=== PATIENT | male | born 1950 | race Caucasian/White ===

== ENCOUNTER 2020-11-09 10:26 | Inpatient (IN) | payer MEDICARE, SELFPAY ==
[2020-11-09] VITALS (32 sets, daily range): BP systolic 139–178; BP diastolic 57–87; PULSE 62–71; RESP 7–24; TEMP 36.4–36.7; O2SAT 85–100
--- NOTE | ~2020-11-09 | US_ITS ---
EXAMINATION: US renal BI DATE: 11/09/2020 17:28 INDICATION: Acute renal failure. TECHNIQUE: Multiple ultrasound grayscale images of the kidneys were obtained. COMPARISON: None. FINDINGS: The right kidney measures 11.2 x 6.7 x 5.6 cm. The left kidney is not visualized The right kidney dem onstrates normal parenchymal echogenicity. There is no right-sided hydronephrosis. The bladder is non visualized. IMPRESSION: 1. Normal right kidney. Left kidney and bladder are not visualized, likely secondary to obesity and e katty. Reviewed, dictated and finalized at location A. IMPRESSION: 1. Normal right kidney. Left kidney and bladder are not visualized, likely seco ndary to obesity and edema.
--- NOTE | ~2020-11-09 | NM_ITS ---
EXAMINATION: NM lung vent and perfusion DATE: 11/09/2020 15:39 INDICATION: Hypoxia. TECHNIQUE: 5.5 mCi Tc-99m MAA was administered intravenously for perfusion images. Scintigraphic gilma ges of the chest were obtained. COMPARISON: Chest 2 views 11/09/2020 FINDINGS: Perfusion images show large defects in right lower lobe and a moderate-sized defect in left lower lob e with matched radiographic abnormalities. IMPRESSION: 1. Nondiagnostic (intermediate probability for pulmonary embolism). Reviewed, dictated and finalized at location A.
--- NOTE | ~2020-11-09 | US_ITS ---
EXAMINATION: US venous doppler [facility] DATE: 11/09/2020 17:28 INDICATION: Lower limb edema. TECHNIQUE: Grayscale ultrasound images without and with compression and Doppler ultrasound images of the bilateral lower extremity veins were obtained. COMPARISON: None. FINDINGS: The visualized portions of right common femoral vein, profunda (deep) femoral vein, femoral vein, pop liteal vein, posterior tibial veins, and greater saphenous vein outflow are patent. The visualized portions of left common femoral vein, profunda femoral vein, femoral vein, popliteal v ein, peroneal veins, posterior tibial veins, and greater saphenous vein outflow are patent. IMPRESSION: 1. No deep venous thrombosis. Reviewed, dictated and finalized at location A.
--- NOTE | ~2020-11-09 | XR_ITS ---
XR chest 2V 11/09/2020 11:15 Indication: Shortness of breath Procedure: AP and lateral views of the chest Comparison: No prior studies for comparison. Findings: Patchy bilateral airspace disease. Small right pleural effusion. Cardiomegaly. No pneumotho rax. Impression: 1: Patchy bibasilar airspace disease, most likely pneumonia. 2: Small right pleural effusion. 3: Cardiomegaly. Reviewed, dictated and finalized at location B. Impression: 1: Patchy bibasilar airspace disease, most likely pneumonia. 2: Small right pleural effusion. 3: Cardiomegaly.
--- NOTE | 2020-11-09 10:37 | ECG_ITS ---
Measurements Intervals [place] Rate: 68 P: 107 MI: 200 QRS: 106 QRSD: 130 T: 85 QT: 419 QTc: 448 Interpretive Statements SINUS RHYTHM RIGHT AXIS DEVIATION INCOMPLETE RIGHT BUNDLE BRANCH BLOCK BORDERLINE T WAVE ABNORMALITY- ANT/HIGH LAT LEADS BASELINE ARTIFACT- V4 BORDERLINE ECG Electronically Signed On 11-09-2020 11:39:47 CDT by Rubén Pitts D.O.
--- NOTE | 2020-11-09 10:41 | ED.SOB ---
HPI - SOB/Dyspnea General Chief Complaint: Shortness of Breath/Dyspnea Stated Complaint: abd/LE swelling Source: patient and RN notes reviewed Mode of arrival: EMS Limitations: no limitations History of Present Illness HPI Narrative: Patient is 70 years old white male referred to the emergency room from his family physician office because of gradual shortness of breath on exertion and swelling of the legs and the scrotum over the last 7 days. Patient denies any fever, chills, nausea, vomiting, chest pain, back pain or abdominal pain. Patient reports that he been retaining fluid lately. History of hypertension, diabetes and hyperlipidemia. Patient does not smoke or drink. Related Data Home Medications Medication Instructions Recorded Confirmed exenatide microspheres [Bydureon] mg SUBCUT 11/09/20 glimepiride mg 11/09/20 levothyroxine 11/09/20 losartan 11/09/20 metformin mg PO 11/09/20 Allergies Allergy/AdvReac Type Severity Reaction Status Date / Time No Known Allergies Allergy Verified 11/09/20 10:27 Review of Systems Review of Systems: Narrative: CONSTITUTIONAL: Denies fever, chills, or sweats. EYES: Denies visual changes, redness, or discharge. ENT: Denies rhinorrhea, congestion, sore throat, or otalgia. CARDIOVASCULAR: Denies chest pain, palpitations, or edema. RESPIRATORY: Denies cough or dyspnea. GASTROINTESTINAL: Denies abdominal pain, nausea, vomiting, or diarrhea. GENITOURINARY: Denies dysuria or hematuria. SKIN: Denies rash or itching. MUSCULOSKELETAL: Denies back pain, joint pain, or myalgia. NEUROLOGIC: Denies headache, numbness, or weakness. PSYCHIATRIC: Denies anxiety or depression. Exam Narrative: Exam Narrative: General appearance: Well-developed, well-nourished Skin: 2+ edema bilaterally up to the scrotum and lower abdomen Head: Normocephalic, nontraumatic Eyes: Clear conjunctiva ENT: Oropharynx normal, ears normal, nose normal Neck: Supple, nontender Chest and respiratory: Airway patent, no respiratory distress, no accessory muscle use Heart: Regular rate/rhythm Abdomen: Soft, nontender, no organomegaly, quiet bowel sounds Vascular: Normal peripheral pulses, normal capillary refill. Musculoskeletal: Normal range of motion, nontender back Neurologic: Alert and oriented ?3, [employer] is normal as tested, no gross motor deficit Course Course Emergency Course: Stable Vital Signs Vital signs: Vital Signs Pulse Rate 71 11/09/20 10:27 Respiratory Rate 17 11/09/20 10:27 Blood Pressure 168/67 H 11/09/20 10:27 Pulse Oximetry 85 L 11/09/20 10:27 Pulse Rate 69 11/09/20 10:32 Respiratory Rate 16 11/09/20 10:32 Blood Pressure 168/67 H 11/09/20 10:31 Pulse Oximetry 100 11/09/20 10:32 MDM - SOB/Dyspnea MDM Narrative Medical decision making narrative: Patient presents with shortness of breath and leg edema. Congestive heart failure is my concern. Labs, chest x-ray, EKG, blood gas on room air ordered. Further plan to follow Differential Diagnosis Differential diagnosis: Likely congestive heart failure and other (Pleural effusion, cardiomegaly, cardiomyopathy) Lab Data Result diagrams: 11/09/20 10:49 11/09/20 10:49 Labs: Lab Results 11/09/20 11/09/20 11/09/20 Range/Units 10:49 10:49 10:49 WBC 7.1 (4.5-10.0) K/mm3 RBC 3.80 L (4.6-6.20) M/mm3 Hgb 12.5 L (14.0-18.0) g/dL Hct 40.9 L (42.0-52.0) % MCV 107.6 H (80-100) fl MCH 32.9 (26-34) pg MCHC 30.6 L (32-36) g/dl RDW 16.5 H (11.5-14.5) % Plt Count 125 L (150-375) k/mm3 MPV 13.3 H (7.4-10.4) fl Immature Gran % (Auto) 0.7 H (0-0.5) % Neut % (Auto) 74.8 H
[2020-11-09 11:00] LABS: Basophils Percent Auto 0.4 % (0.2-1.2); Eosinophils Percent Auto 0.3 % (0-4.4); Hematocrit 40.9 % (42.0-52.0); Hemoglobin 12.5 g/dL (14.0-18.0); Immature Granulocyte Absolute 0.05 K/mm3 (0.00-0.031); Immature Granulocyte Percent A 0.7 % (0-0.5); Immature Platelet Fraction Pct 9.9 % (0.9-11.2); Lymphocytes Absolute Auto 1.03 K/mm3 (0.9-3.2); Lymphocytes Percent Auto 14.5 % (18.3-44.2); Mean Corpuscular HGB Conc 30.6 g/dl (32-36); Mean Corpuscular Hemoglobin 32.9 pg (26-34); Mean Corpuscular Volume 107.6 fl (80-100); Mean Platelet Volume 13.3 fl (7.4-10.4); Monocytes Absolute Auto 0.7 K/mm3 (0.1-0.6); Monocytes Percent Auto 9.3 % (2.6-8.5); Neutrophils Absolute Auto 5.3 K/mm3 (1.3-6.7); Neutrophils Percent Auto 74.8 % (45.5-73.1); Platelet Count Result 125 k/mm3 (150-375); Red Cell Distribution Width 16.5 % (11.5-14.5); White Blood Count 7.1 K/mm3 (4.5-10.0)
[2020-11-09 11:03] LABS: Alveolar/Arterial O2 Gradient 37.3 mmHg; Base Excess ABG -3.9 mEq/l (+/-2.0); Fractional Inspired Oxygen 21 %; HCO3 ABG 22.7 mEq/l (22.0-26.0); Oxygen Content ABG 15.5 %vol (16.0-22.0); Oxyhemoglobin 83.6 % THb (90.0-100.0); PCO2 ABG 47.6 mmHg (35.0-45.0); PO2 ABG 55.4 mmHg (80.0-100.0); PO2 FiO2 Ratio Arterial Blood 2.64 %; Total Hemoglobin 13.2 g/dL (12.0-18.0); pH ABG 7.297 (7.350-7.450)
[2020-11-09 11:04] LABS: Device ROOM AIR; Modified Allen's Test Pass; Oxygen Saturation ABG 85.5 % (95.0-100.0); Site Drawn LEFT RADIAL
[2020-11-09 11:07] LABS: INR 1.1; Prothrombin Time 14.6 Seconds (11.1-14.7)
[2020-11-09 11:08] LABS: Partial Thromboplastin Time 27.4 SECONDS (22.3-36.8)
[2020-11-09 11:24] LABS: D Dimer 3.99 ug/mL (<0.48)
[2020-11-09 11:47] LABS: Alanine Aminotransferase 20 U/L (4-50); Alkaline Phosphatase 101 U/L (38-126); Anion Gap 7 mmol/L (8-16); Aspartate Amino Transferase 40 U/L (17-59); Bilirubin,Total 0.7 mg/dL (0.2-1.3); Blood Urea Nitrogen 73 mg/dL (9-20); Calcium 8.7 mg/dL (8.4-10.2); Carbon Dioxide 30 mmol/L (22-30); Chloride 105 mmol/L (98-107); Estimated CRCL calculation 46 ml/min; Estimated Glomerular Filt Rate 27; Glucose 135 mg/dL (75-110); Potassium 4.4 mmol/L (3.4-5.0); Sodium 142 mmol/L (137-145)
[2020-11-09 12:02] LABS: NT Pro B Type Natriuretic Pept 5030 PG/ML (5-100); Troponin I 0.141 ng/mL (0.000-0.034)
[2020-11-09] MEDS: FUROSEMIDE INJ 40 MG/4 ML VIAL 60 MG IV PUSH (13:43)
[2020-11-09] MEDS: ENOXAPARIN 120 MG/0.8 ML SYRINGE 150 MG SUB-Q (13:58)
--- NOTE | 2020-11-09 14:03 | PM.IMHP ---
H&P: HPI History of Present Illness Date/Time: 11/09/20 14:03 this is a 70 year old male patient who has a history of hypertension diabetes and hypothyroidism. The patient stated that he has had increase swelling to his lower extremities and his scrotum over the last 7 days. The patient has not had any previous history of congestive heart failure. The patient states that his blood sugars have been in the 100 since last A1c was 6.1. The patient reports that he has been retaining fluid. He has had a cough but has been nonproductive. No fever chills. The patient short of breath with exertion over the last 7 days. The patient went to his primary care doctor's office because of all the swelling. His primary care doctor referred him to the emergency room. Patient's blood pressure was 168/67. Patient's H&H is 12.5 and 40.9. Arterial blood gases pH 7.297. CO2 was 47.6. PO2 is 55.4. The patient was placed on a BiPAP 12/6 with a rate of 16. Chest x-ray was read as patchy bibasilar airspace disease most likely pneumonia. Small right pleural effusion. Cardiomegaly. No leukocytosis was noted. No fever chills. 0.141 BNP 5030. The patient was started on a Zithromax and Rocephin for the possibility of pneumonia. I personally reviewed the chest x-ray which looks more like pulmonary edema. The patient was given IV Lasix in the emergency room. Admitted to inpatient services on 11/09/2020 Chief Complaint: Shortness of breath Review of Systems Review of Systems: All systems reviewed & are unremarkable except as noted in HPI and below Constitutional: Constitutional: Reports as per HPI and Reports no additional constitutional complaints Eyes: Eyes: Reports as per HPI and Reports no additional eye complaints ENT: Reports system reviewed and no additional complaints, except as documented and Reports Normal hearing present Cardiovascular: Cardiovascular: Reports no additional cardiovascular complaints Respiratory: Respiratory: Reports no additional respiratory complaints and Reports no additional respiratory complaints Gastrointestinal: Gastrointestinal: Reports as per HPI and Reports no additional gastrointestinal complaints Musculoskeletal: Musculoskeletal: Reports no additional musculoskeletal complaints Integumentary/Breasts: Skin/Breast: Reports system reviewed and no additional complaints, except as docu and Reports as per HPI Neurologic: Reports system reviewed and no additional complaints, except as documented, Reports as per HPI and Reports Normal hearing present Psychiatric: Psychiatric: Reports no additional psychiatric complaints and Reports as per HPI Endocrine: Endocrine: Reports no additional endocrine complaints Hematologic/Lymphatic: Hematologic/Lymphatic: Reports no additional hematologic/lymphatic complaints Allergic/Immunologic: Allergic/Immunologic: Reports no additional allergic/immunologic complaints [facility], LAT[facility] Past Medical History Medical History (Updated 11/09/20 @ 14:33 by Lidia Holguin NP) Anemia DM2 (diabetes mellitus, type 2) Hypothyroidism TIA (transient ischemic attack) Surgical History Surgical History (Updated 11/09/20 @ 14:17 by Lidia Holguin NP) Hx of bilateral cataract extraction S/P carotid endarterectomy Family History Family History (Updated 11/09/20 @ 14:20 by Lidia Holguin NP) Sibling Acute myocardial infarction Mother Heart disease Sibling Hypertension Father Cancer Hypertension Sibling Hypothyroidism Social History Social History (Updated 11/09/20 @ 14:23 by Lidia Holguin NP) Social History: The patient is and he has 1 daughter. He does not have a durable power telecom assistant for healthcare. He desires to be a full code. Patient is a lifelong nonsmoker. Does not use any alcohol or illicit drugs. 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 Meds Home Medications and Allergies Home Medications Medication Instructions Recorded
--- NOTE | 2020-11-09 15:39 | PM.CNNEP ---
Assessment and Plan Assessment and plan (1) Kidney failure: Qualifiers: Acute renal failure type: unspecified Renal failure chronicity: acute Qualified Code(s): N17.9 - Acute kidney failure, unspecified Code(s): N19 - Unspecified kidney failure Status: Acute Assessment and Plan: unclear if acute versus chronic versus acute on chronic patient relays no history of renal insufficiency HOWEVER -- he has significant risk factors (HTN, DM complicated by neuropathy, obesity, vascular disease, age....etc) possible nephrotic range proteinuria playing a role with edema/swelling??? check serologies, urine electroltyes, and assess for proteinuria agree with diuresis for now (2) CHF (congestive heart failure): Qualifiers: Heart failure chronicity: unspecified Heart failure type: unspecified Qualified Code(s): I50.9 - Heart failure, unspecified Code(s): I50.9 - Heart failure, unspecified Status: Acute Assessment and Plan: Cardiology consulted suspect more right sided - possible from pulmonary HTN/cor pulmonale continue IV diuresis follow I/Os follow daily weights (3) Acute respiratory failure with hypoxia: Code(s): J96.01 - Acute respiratory failure with hypoxia Status: Acute Assessment and Plan: related to #2 but suspect a component of NEREYDA/obesity hypoventilation syndrome follow respiratory status consider apnea link study (4) Hypertension: Code(s): I10 - Essential (primary) hypertension Status: Chronic (5) Diabetes: Code(s): E11.9 - Type 2 diabetes mellitus without complications Status: Chronic Assessment and Plan: follow accuchecks glycemic control Will continue to follow History of Present Illness Reason for Consult Consult date: 11/09/20 Reason for consult: acute renal failure (versus chronic kidney disease)) Chief Complaint Chief complaint: Pneumonia, congestive heart failure, renal failure History of Present Illness Narrative: The patient is a 70 year old male patient with a past medical history as outlined below who presented to [facility] ER for further evaluation of shortness of breath and increased swelling/edema. The patient states that he has had increased swelling to his lower extremities and his scrotal area as well as shortness of breath for the last 7 days. He states that shortness of breath is more noticeable whenever he tries to exert himself but appears to have some shortness of breath at rest as well. He admits to a nonproductive cough but no overt fevers, chills, nausea, or vomiting. The swelling edema seems to be localized to his lower extremities and mid abdomen and seems to be progressively getting worse as well Over the last week. Due to these constellation of symptoms, he went to his primary care physician's office for further evaluation. His PCP then subsequently referred him to the emergency room due to this severity of his swelling, edema, and shortness of breath for further testing. Workup and evaluation emergency room demonstrated the patient to be hemodynamically stable but in some mild respiratory distress. An ABG showed evidence of hypoxia with a mildly elevated CO2 level and hence BiPAP was placed with some improvement in his respiratory status. Routine blood test demonstrated an essentially normal CBC with mild anemia but his chest x-ray showed patchy bibasilar airspace disease concerning for pneumonia in association with a small right pleural effusion and cardiomegaly Although there does seem to be a component of pulmonary vascular congestion / pulmonary edema as well. His chemistry showed elevated BUN and creatinine as well. He was started on antibiotic therapy after appropriate cultures were drawn to the concern for pneumonia and also received a dose of IV Lasix given there was a component of fluid in his lungs as well and he was subsequent admitte
[2020-11-09 16:02] LABS: Troponin I 0.177 ng/mL (0.000-0.034)
--- NOTE | 2020-11-09 16:12 | ADMGEN ---
This patient, Ben Farmer, was admitted to IMU Room 200-01. Patient/family oriented to hospital policies and general routines including ID bracelet, bed and alarms, visiting hours, pain management, procedures, bathroom and other care routines, personal items, smoking policy, room service/diet, and visiting hours. Information on how to activate the Rapid Response Team has been discussed. Patient/Family are encouraged to report perceived risks to care and to ask questions if they do not understand what they are told or what they should do.
--- NOTE | 2020-11-09 16:14 | PM.CNCAR ---
Assessment and Plan Assessment and plan (1) Elevated troponin: Code(s): R77.8 - Other specified abnormalities of plasma proteins Status: Acute Assessment and Plan: This is not related to acute plaque rupture. Most likely secondary to heart failure and renal failure. Continue to check cardiac enzymes until peak. Echocardiogram will be ordered and reviewed. Aspirin 81 mg p.o. daily will be started. (2) Hypertension associated with diabetes: Code(s): E11.59 - Type 2 diabetes mellitus with other circulatory complications; I15.2 - Hypertension secondary to endocrine disorders Status: Acute Assessment and Plan: Above goal. Continue losartan. Add carvedilol but at a low dose at 3.125 mg p.o. b.i.d. and up titrate as able. Nephrology to see (3) Hyperlipidemia associated with type 2 diabetes mellitus: Code(s): E11.69 - Type 2 diabetes mellitus with other specified complication; E78.5 - Hyperlipidemia, unspecified Status: Acute Assessment and Plan: Not on statin. Initiate statin therapy. Patient has a history of carotid endarterectomy and should be on a statin regardless. Will start atorvastatin 20 mg daily (4) Morbid obesity with BMI of 50.0-59.9, adult: Code(s): E66.01 - Morbid (severe) obesity due to excess calories; Z68.43 - Body mass index [BMI] 50.0-59.9, adult Status: Acute (5) CHF (congestive heart failure): Qualifiers: Heart failure chronicity: unspecified Heart failure type: unspecified Qualified Code(s): I50.9 - Heart failure, unspecified Code(s): I50.9 - Heart failure, unspecified Status: Acute Assessment and Plan: This is probably related to right heart failure/cor pulmonale but cannot exclude significant left heart disease either. 2D echocardiogram with Doppler will be ordered and reviewed. Losartan to be continued. Initiate carvedilol as above. Up titrate is able. Will increase his furosemide to 40 mg IV q.8 hours. BMP in the morning and daily. (6) Acute respiratory failure with hypoxia: Code(s): J96.01 - Acute respiratory failure with hypoxia Status: Acute Assessment and Plan: He undoubtedly has sleep apnea. Will order a nocturnal oxygen study and consult pulmonology. History of Present Illness History of Present Illness Consult date/time: 11/09/20 16:14 Requesting physician: Lidia Holguin NP Consult reason: congestive heart failure and shortness of breath Reason For Visit: Pneumonia, congestive heart failure, renal failure Narrative: Date of service 11/09/2020 Reason consultation: Congestive heart failure, shortness of breath History: Patient is a 70-year-old male has hypertension, diabetes, hypothyroidism, morbid obesity who presented to the hospital because of fluid retention. Patient states that he noticed his waist size increasing about a month ago. He has also noticed scrotal edema and swelling up into his abdomen as well. He noticed swelling about a week to 2 weeks ago. He then noticed shortness of breath 1-2 days ago. He would become dyspneic by walking to and from his mailbox. He came into the hospital and his blood gas showed a pH is 7.29, CO2 of 48 and PO2 of 55. He was initially placed on BiPAP with some improvement. He essentially has anasarca with swelling everywhere. He has also noted to be in renal failure and troponins were elevated. Patient denies any chest pain, syncope, presyncope, paroxysmal nocturnal dyspnea, orthopnea. No palpitations. He does admit to having a carotid endarterectomy over 20 years ago. He is currently a COVID rule out Review of Systems Review of Systems: All systems reviewed & are unremarkable except as noted in HPI and below Constitutional: Constitutional: Denies body ache(s) and Reports weakness Eyes: Eyes: Denies blurry vision ENT: Reports Normal hearing present Cardiovascular: Cardiovascular: Denies chest pain, Reports pedal edema an
[2020-11-09 16:45] LABS: Glucose Point of Care 75 (65-105)
[2020-11-09] MEDS: HEPARIN SODIUM 5,000 UNITS/ML VIAL 5000 UNITS SUB-Q ×2 (16:59→21:27)
[2020-11-09 18:42] LABS: Troponin I 0.181 ng/mL (0.000-0.034)
--- NOTE | 2020-11-09 19:21 | PCRCNOTE ---
APNEA LINK WILL BE HELD TONIGHT DUE TO PT CONDITION. WILL INITIATE TEST ONCE PT IS MORE STABLE. REZA BROOKS MADE AWARE.
[2020-11-09 20:13] LABS: Glucose Point of Care 93 (65-105)
[2020-11-09] MEDS: FUROSEMIDE INJ 40 MG/4 ML VIAL IV PUSH (21:27)
[2020-11-09 22:54] LABS: Add Urine Microscopic? YES; Appearance Urine Cloudy (Clear); Bacteria Urine Trace /hpf; Bilirubin Urine Negative (Negative); Blood Urine 2+ (Negative); Color Urine Yellow (Yellow); Glucose Urine UA Negative (Negative); Ketones Urine Negative (Negative); Leukocyte Esterase Ur Negative LEU/UL (Negative); Mucus Urine Rare /lpf; Nitrate Urine Negative (Negative); Protein Urine 1+ mg/dL (Negative); Urobilinogen Urine Negative mg/dL (<2.0); WBC Urine 0-3 /hpf
[2020-11-09 23:00] LABS: SARS-CoV-2 RNA PCR Negative
[2020-11-09 23:15] LABS: Eosinophil Urine None Seen % (None Seen)
[2020-11-09 23:29] LABS: Creatinine Urine 94.5 mg/dL; Total Protein Urine Random 28 mg/dL
[2020-11-09 23:46] LABS: Sodium Urine Random 73 meq/L
[2020-11-10] VITALS (19 sets, daily range): BP systolic 142–178; BP diastolic 53–88; PULSE 63–70; RESP 15–28; TEMP 36–37.1; O2SAT 92–100
--- NOTE | 2020-11-10 | ECHO_ITS ---
Patient Info Name: Ben Farmer Age: 70 years : 1950 Gender: Male Ht: 72 in Wt: 412 lbs BSA: 3.19 m2 HR: 63 bpm BP: 152 / 60 mmHg Heart Rhythm: Sinus Rhythm Technical Quality: Good Exam Date: 11/10/2020 10:27 AM Exam Location: [facility] Pulmonary Patient Status: Inpatient Admit Date: 11/09/2020 Staff Ordering Physician: Lidia Holguin NP Kiln Burner Helper: Duane Amato RDCS, RT Attending Provider: Blu Muñoz MD Referring Physician: Chelsie SCHMIDT; Exam Type: CA echo doppler color flow Study Info Indications I50.9 - Heart failure, unspecified Complete two-dimensional, color flow and Doppler transthoracic echocardiogram is performed with contrast to opacify the left ventricle and to improve the deliniation of the left ventricle endocardial borders. Contrast/Agitated Saline Contrast/Ag. Saline: Definity Amount: 3.00 ml Administered By: Tammy Goldsmith RN Summary 1. Left ventricular chamber dimension is normal. 2. Left ventricular systolic function is normal, estimated at 65-70%. 3. There is moderately increased left ventricular wall thickness. 4. The left ventricular diastolic function is grade II diastolic dysfunction. 5. Right ventricular chamber dimension is severely enlarged. 6. Right ventricular systolic function is reduced. 7. Right atrial chamber dimension is mildly enlarged. 8. There is mild tricuspid valve regurgitation. 9. Moderate pulmonary hypertension, estimated pulmonary arterial systolic pressure is 45 mmHg. 10. There is mild mitral valve regurgitation. 11. There is mild aortic valve calcification. Left Ventricle Left ventricular chamber dimension is normal. Left ventricular systolic function is normal, estimated at 65-70%. There is moderately increased left ventricular wall thickness. The left ventricular diastolic function is grade II diastolic dysfunction. Right Ventricle Right ventricular chamber dimension is severely enlarged. Right ventricular systolic function is reduced. Left Atria Left atrial chamber dimension is normal. Right Atria Right atrial chamber dimension is mildly enlarged. Aortic Valve The aortic valve is trileaflet. There is mild aortic valve sclerosis. There is no aortic valve stenosis. There is mild aortic valve calcification. Pulmonic Valve The pulmonic valve is normal. There is no pulmonic valve stenosis. There is trace pulmonic regurgitation. Mitral Valve The mitral valve has calcified annulus. There is no mitral valve stenosis. There is mild mitral valve regurgitation. Tricuspid Valve The tricuspid valve leaflets are not well visualized. There is no significant tricuspid valve stenosis. There is mild tricuspid valve regurgitation. Moderate pulmonary hypertension, estimated pulmonary arterial systolic pressure is 45 mmHg. Pericardium/Pleural The pericardium appears normal. There is no pericardial effusion. Aorta The aortic root size at the sinus of Valsalva is normal. Left Ventricular Outflow Tract Name Value Normal LVOT 2D LVOT Diameter 2.2 cm LVOT Doppler
[2020-11-10] MEDS: LEVOTHYROXINE SODIUM 75 MCG TABLET PO (05:56)
[2020-11-10] MEDS: HEPARIN SODIUM 5,000 UNITS/ML VIAL 5000 UNITS SUB-Q ×3 (05:56→20:48)
[2020-11-10] MEDS: LEVOTHYROXINE SODIUM 100 MCG TABLET PO (05:56)
[2020-11-10] MEDS: FUROSEMIDE INJ 40 MG/4 ML VIAL IV PUSH ×3 (05:56→20:48)
[2020-11-10 05:58] LABS: Albumin Level 4.1 g/dL (3.5-5.1); Anion Gap 6 mmol/L (8-16); Blood Urea Nitrogen 77 mg/dL (9-20); Calcium 8.7 mg/dL (8.4-10.2); Carbon Dioxide 32 mmol/L (22-30); Chloride 106 mmol/L (98-107); Cholesterol 164 mg/dL (0-200); Complement C3 115 mg/dL (88-165); Estimated CRCL calculation 50 ml/min; Estimated Glomerular Filt Rate 31; Glucose 44 mg/dL (75-110); HDL Direct 46 mg/dL; Magnesium 2.4 mg/dL (1.6-2.3); Phosphorus 5.4 mg/dL (2.5-4.5); Potassium 4.4 mmol/L (3.4-5.0); Sodium 144 mmol/L (137-145); Triglycerides 123 mg/dL (<150)
[2020-11-10 06:00] LABS: Basophils Percent Auto 0.5 % (0.2-1.2); Eosinophils Percent Auto 0.4 % (0-4.4); Hematocrit 41.1 % (42.0-52.0); Hemoglobin 12.4 g/dL (14.0-18.0); Hemoglobin A1C 5.9 % (<5.7); Immature Granulocyte Absolute 0.05 K/mm3 (0.00-0.031); Immature Granulocyte Percent A 0.6 % (0-0.5); Lymphocytes Absolute Auto 1.58 K/mm3 (0.9-3.2); Lymphocytes Percent Auto 19.6 % (18.3-44.2); Mean Corpuscular HGB Conc 30.2 g/dl (32-36); Mean Corpuscular Hemoglobin 32.7 pg (26-34); Mean Corpuscular Volume 108.4 fl (80-100); Monocytes Absolute Auto 0.9 K/mm3 (0.1-0.6); Monocytes Percent Auto 10.8 % (2.6-8.5); Neutrophils Absolute Auto 5.5 K/mm3 (1.3-6.7); Neutrophils Percent Auto 68.1 % (45.5-73.1); Platelet Count Result 122 k/mm3 (150-375); Red Blood Count 3.79 M/mm3 (4.6-6.20); Red Cell Distribution Width 16.4 % (11.5-14.5); White Blood Count 8.1 K/mm3 (4.5-10.0)
[2020-11-10] MEDS: DEXTROSE 50% 25 GM/50 ML SYRINGE IV PUSH ×2 (06:01→08:32)
[2020-11-10 06:04] LABS: LDL Cholesterol Direct 77 mg/dL
[2020-11-10 06:50] LABS: Glucose Point of Care 98 (65-105)
[2020-11-10 08:09] LABS: Free T4 Free Thyroxine Reflex 0.48 ng/dL (0.78-2.19)
[2020-11-10] MEDS: ATORVASTATIN 20 MG TABLET PO (08:32)
[2020-11-10] MEDS: ASPIRIN 81 MG CHEWABLE TABLET PO (08:32)
[2020-11-10 08:34] LABS: Glucose Point of Care 56 (65-105)
--- NOTE | 2020-11-10 09:07 | PM.CNPUL ---
Assessment and Plan Assessment and plan (1) Obesity hypoventilation syndrome: Code(s): E66.2 - Morbid (severe) obesity with alveolar hypoventilation Status: Acute Assessment and Plan: Patient with morbid obesity and acute on chronic hypercarbic respiratory failure from obesity with a blood gas of 7.30/47.6/55.4 on room air. Patient was initially treated with BiPAP but he could not tolerate the pressures and ripped the mask off overnight. Patient would benefit from noninvasive ventilation for his obesity hypoventilation syndrome to prevent further hospital admissions and morbidity from his hypercarbia. I have contacted respiratory team to initiate this process. I discussed with the patient his obesity hypoventilation syndrome and he was willing to try noninvasive ventilation with an AVAPS mode. Settings that were most comfortable for him were rate of 14, tidal volume 500, EPAP 8, minimum inspiratory pressure 9, maximal inspiratory pressure 25, rise of 5 which is the slow S2 on our machine, inspiratory time of 1.2 seconds, FiO2 25% resulted in saturations of 96%. I will check a blood gas in the morning prior to removal of AVAPS NIV. Patient will need to lose weight in the future. Will follow with you. (2) Community acquired pneumonia: Qualifiers: Laterality: right Lung location: lower lobe of lung Qualified Code(s): J18.9 - Pneumonia, unspecified organism Code(s): J18.9 - Pneumonia, unspecified organism Status: Acute Assessment and Plan: I have a low clinical suspicion for community-acquired pneumonia and will discontinue ceftriaxone and azithromycin after blood cultures are negative for 48 hours. Of note patient's stars COVID 2 PCR test is negative. (3) Fluid overload: Code(s): E87.70 - Fluid overload, unspecified Status: Acute Assessment and Plan: Patient has fluid overload likely from cor pulmonale from his obesity hypoventilation syndrome resulting in generalized edema and acute renal failure. Edema and renal function have improved with Lasix 40 IV q.8. Hospitalist and tank shop supervisor to aggressively diurese patient as tolerated by his cardiac and renal cysts in systems. of note patient's free T4 is 0.48 which is low and his TSH is 23.8 which is high. Hospitalist to manage his hypothyroidism. History of Present Illness History of Present Illness Consult date: 11/10/20 Requesting physician: Blu Muñoz MD Reason for consult: other (Obesity hypoventilation syndrome) Chief complaint: Pneumonia, congestive heart failure, renal failure Narrative: This is a new pulmonary consult for obesity hypoventilation syndrome This is a 67-year-old man with a history of diabetes, morbid obesity, peripheral vascular disease status post carotid endarterectomy who presents with generalized swelling and acute on chronic hypercarbic respiratory failure. Patient was in his usual state of health until approximately 1 week ago when he noticed that he had developed generalized edema with severe swelling of his abdomen, scrotum, and lower extremities. Patient also noted the onset of dyspnea on exertion without any rest shortness of breath. Patient denied fever, chills, cough, phlegm production, hemoptysis, or chest pain. On 11/09 patient presented to his private physicians office who sent him to the ER. In the emergency department he was found to have a room air blood gas of 7.30/47.6/55 and was having some shortness of breath and started on BiPAP. Patient was also in acute renal failure with a creatinine of 2.40 and a BNP of 5030. Chest x-ray showed bibasilar infiltrates with peripheral vascular redistribution and cardiomegaly. Patient had a D-dimer that was 3.99 and had a perfusion scan that showed a large matched defect in the right lower lobe and a matched moderate defect in the left lower lobe. patient was treated with Lasix 40 IV q.8, aspirin for positive troponins, ceftriaxone
--- NOTE | 2020-11-10 10:41 | PCRCNOTE ---
Trilogy arrangements pending with [facility].
[2020-11-10] MEDS: PERFLUTREN LIPID MICROSPHERES 1.5 ML VIAL DILUTED TO 10 ML TOTAL VOLUME IV PUSH (11:15)
[2020-11-10 11:29] LABS: Glucose Point of Care 85 (65-105)
[2020-11-10 12:11] LABS: Glucose Point of Care 73 (65-105)
--- NOTE | 2020-11-10 13:40 | PM.PNNEP ---
Progress Note: A&P Assessment and Plan (1) Kidney failure: Qualifiers: Acute renal failure type: unspecified Renal failure chronicity: acute Qualified Code(s): N17.9 - Acute kidney failure, unspecified Code(s): N19 - Unspecified kidney failure Status: Acute Assessment and Plan: unclear if acute versus chronic versus acute on chronic patient relays no history of renal insufficiency HOWEVER -- he has significant risk factors (HTN, DM complicated by neuropathy, obesity, vascular disease, age....etc) serologies pending only has 300mg proteinuria renal ultrasound noted creatinine better in spite of diuresis -- component of renal venous hypertension (being relieved with diuresis?) continue diuresis - consider adding metolazone (2) CHF (congestive heart failure): Qualifiers: Heart failure chronicity: unspecified Heart failure type: unspecified Qualified Code(s): I50.9 - Heart failure, unspecified Code(s): I50.9 - Heart failure, unspecified Status: Acute Assessment and Plan: Cardiology following Echo pending continue IV diuresis follow I/Os follow daily weights (3) Acute respiratory failure with hypoxia: Code(s): J96.01 - Acute respiratory failure with hypoxia Status: Acute Assessment and Plan: related to #2 but has a component of NEREYDA/obesity hypoventilation syndrome Pulmonary recommendations noted follow respiratory status (4) Hypertension: Code(s): I10 - Essential (primary) hypertension Status: Chronic Assessment and Plan: elevated at this time diuresis may help with this follow hemodynamics (5) Diabetes: Code(s): E11.9 - Type 2 diabetes mellitus without complications Status: Chronic Assessment and Plan: follow accuchecks on SSI Will continue to follow Subjective Date/time seen: 11/10/20 13:40 No real significant improvement noted per patient -- shortness or breath and edema/swelling appear about the same (but no worse) despite increased frequency of IV lasix; no other acute complaints voiced; no events overnight or earlier this AM. Exam Narrative: Exam Narrative: General: WD/WN male in NAD Heart: normal S1 and S2; no rub Lungs: bibasilar crackles noted Abdomen: soft, nontender, nondistended, positive bowel sounds Extremities: no cyanosis or clubbing; 3+ edema with associated scrotal edema Skin: chronic stasis changes Objective Data Vital Signs Vital Signs: Vital Signs Temp Pulse Resp BP Pulse Ox 11/10/20 12:00 36.7 C 65 28 H 178/62 H 100 11/10/20 11:56 64 16 94 11/10/20 10:00 64 11/10/20 09:39 95 11/10/20 08:00 36.6 C 65 24 H 150/65 H 99 11/10/20 06:00 66 11/10/20 04:00 36.6 C 65 22 H 152/60 H 93 11/10/20 03:38 66 20 92 11/10/20 02:00 68 11/10/20 00:00 36.4 C 66 20 145/88 H 92 11/09/20 22:00 68 11/09/20 20:00 36.7 C 67 22 H 178/78 H 97 11/09/20 19:15 69 22 H 94 11/09/20 18:00 68 11/09/20 15:06 36.4 C L 67 24 H 167/77 H 97 Intake/Output Intake/Output: Intake & Output 11/07/20 11/08/20 11/09/20 11/10/20 23:59 23:59 23:59 23:59 Intake Total 290 750 Output Total 1100 Balance -810 750 Meds/Results Medications: Active Medications Generic Name Dose Route Start Last Admin Trade Name Freq PRN Reason Stop Dose Admin Albuterol 2 puff 11/09/20 14:24 Albuterol Sulfate (*Sp) Aerosol 1 Puff INHALATION Q6HRT PRN Shortness Of Breath Aspirin 81 mg 11/10/20 08:00 11/10/20 08:32 Aspirin 81 Mg Chewable Tablet PO 81 mg DAILY@0800 [facility] Administration Atorvastatin Calcium 20 mg 11/10/20 09:00 11/10/20 08:32 Atorvastatin 20 Mg Tablet PO 20 mg DAILY [facility] Administration Carvedilol 3.125 mg 11/10/20 21:00 Carvedilol 3.125 Mg Tablet PO Q12HR [facility] Dextrose 12.5 gm 11/09/20 13:54 11/10/20 08:32 Dextrose
--- NOTE | 2020-11-10 13:52 | PM.PNCARD ---
Progress Note: A&P Assessment and Plan (1) Elevated troponin: Code(s): R77.8 - Other specified abnormalities of plasma proteins Status: Acute Assessment and Plan: This is not related to acute plaque rupture. Most likely secondary to heart failure and renal failure. Continue to check cardiac enzymes until peak. Echocardiogram pending (2) Hypertension associated with diabetes: Code(s): E11.59 - Type 2 diabetes mellitus with other circulatory complications; I15.2 - Hypertension secondary to endocrine disorders Status: Acute Assessment and Plan: Above goal. Continue losartan. Continue carvedilol but at a low dose at 3.125 mg p.o. b.i.d. and up titrate as able. Nephrology to see (3) Hyperlipidemia associated with type 2 diabetes mellitus: Code(s): E11.69 - Type 2 diabetes mellitus with other specified complication; E78.5 - Hyperlipidemia, unspecified Status: Acute Assessment and Plan: Not on statin. Initiate statin therapy. Patient has a history of carotid endarterectomy and should be on a statin regardless. Continue atorvastatin 20 mg daily (4) Morbid obesity with BMI of 50.0-59.9, adult: Code(s): E66.01 - Morbid (severe) obesity due to excess calories; Z68.43 - Body mass index [BMI] 50.0-59.9, adult Status: Acute (5) CHF (congestive heart failure): Qualifiers: Heart failure chronicity: unspecified Heart failure type: unspecified Qualified Code(s): I50.9 - Heart failure, unspecified Code(s): I50.9 - Heart failure, unspecified Status: Acute Assessment and Plan: This is probably related to right heart failure/cor pulmonale but cannot exclude significant left heart disease either. Continue IV diuretics. Will also give a trial of metolazone 5 mg p.o. x1 now. (6) Acute respiratory failure with hypoxia: Code(s): J96.01 - Acute respiratory failure with hypoxia Status: Acute Assessment and Plan: He undoubtedly has sleep apnea. Pulmonology consultation obtain and is appreciated. Patient with obesity hypoventilation syndrome Subjective Date/time seen: 11/10/20 13:52 Interval history: 70-year-old admitted because of anasarca, renal failure, elevated troponins, shortness of breath Date of service 11/10/2020: He states he feels about the same as he did yesterday. No significant improvement. No chest pain but still has swelling everywhere and shortness of breath Review of Systems Review of Systems: All systems reviewed & are unremarkable except as noted in HPI and below Constitutional: Constitutional: Denies body ache(s), Denies fatigue, Denies headache(s) and Reports weakness Eyes: Eyes: Denies blurry vision ENT: Reports Normal hearing present, Denies headache(s) and Denies neck pain Cardiovascular: Cardiovascular: Denies chest pain, Reports pedal edema, Reports leg edema, Reports dyspnea and Reports dyspnea on exertion Respiratory: Respiratory: Reports dyspnea and Reports dyspnea on exertion Gastrointestinal: Gastrointestinal: Reports abdominal pain Musculoskeletal: Musculoskeletal: Denies neck pain Integumentary/Breasts: Skin/Breast: Denies dry skin Neurologic: Reports Normal hearing present, Denies headache(s) and Reports weakness Psychiatric: Psychiatric: Denies anxiety Endocrine: Endocrine: Denies fatigue Hematologic/Lymphatic: Hematologic/Lymphatic: Denies easy bleeding Allergic/Immunologic: Allergic/Immunologic: Denies GI upset with certain foods Exam Narrative: Exam Narrative: Awake alert oriented. Pleasant and appears stated age Const: General: comfortable and no acute distress HENMT: General nose exam: Normal nares present Eyes: Sclera: sclerae normal Neck: Neck: supple and no JVD Chest: Other: No reproducible chest wall pain to palpation Resp: Auscultation: crackles and diminished lung sounds Cardio: Rate: regular rate Rhythm: regular rhythm Other: Difficult cardiac
[2020-11-10] MEDS: metOLazone 5 MG TABLET PO (15:09)
--- NOTE | 2020-11-10 15:32 | PC.NURSE ---
Notified Dr. Muñoz that patient is having difficulty urinating due to edema of scrotum and penis. Unable to place carrizales catheter due to swelling. Consult for urology has been placed. Bladder scanned patient and 358 mls of urine being retained.
--- NOTE | 2020-11-10 16:21 | WPDURCON ---
Assessment and Plan Assessment and plan (1) Fluid overload: Code(s): E87.70 - Fluid overload, unspecified Status: Acute (2) Diabetes: Code(s): E11.9 - Type 2 diabetes mellitus without complications Status: Chronic (3) Obesity hypoventilation syndrome: Code(s): E66.2 - Morbid (severe) obesity with alveolar hypoventilation Status: Acute (4) Kidney failure: Qualifiers: Acute renal failure type: unspecified Renal failure chronicity: acute Qualified Code(s): N17.9 - Acute kidney failure, unspecified Code(s): N19 - Unspecified kidney failure Status: Acute Assessment and Plan: Creatinine is 2.10, will continue to monitor, likley will decline since carrizales has been placed. Secondary to retention. (5) Retention of urine: Code(s): R33.9 - Retention of urine, unspecified Status: Acute Assessment and Plan: Difficult carrizales catheter placement d/t severe scrotal and penile edema. A 16fr straight catheter was placed sucessfully, betadine swabs used prior to insertion, 550cc of clear yellow urine on return. Carrizales should remain for 7-10 days then a voiding trial can be done. Difficulty with urination will continue d/t BPH versus severe penile edema. (6) BPH (benign prostatic hyperplasia): Code(s): N40.0 - Benign prostatic hyperplasia without lower urinary tract symptoms Status: Acute Assessment and Plan: Start Flomax and Finasteride. (7) Scrotal edema: Code(s): N50.89 - Other specified disorders of the male genital organs Status: Acute Assessment and Plan: Elevate Scrotum with Rolled Towels, secondary to fluid retention, patient is on lasix, hopefully will improve now that urine is draining. Urology Consult Note HPI Date Seen: 11/10/20 Requesting Physician: Blu Muñoz MD Primary Care Provider: Asa Lorenz MD Consult Narrative Narrative: Ben Farmer is a 70 year old male who presented to the ER yesterday for SOB, BLE edema and scrotal edema. According to his nurse he voided 1000cc yesterday but only 100cc today, his PVR was >400cc via bladder scan. An attempt to place a carrizales was done last night but d/t the severe scrotal edema his urethral meatus is not visualized. His WBC is 8.1, creatinine is 2.10, UA shows RBC's present and DELORIS was done yesterday showing a normal right kidney but the left kidney and bladder were not visualized d/t body habitus. He denies any history of BPH, difficulty urinating, frequency, urgency and only has nocturia x 1-2/night. He denies incontinence although he has had overflow incontinence today. He is unsure if his PCP follows his PSA yearly. He has never seen a urologist and has no history of UTI's. Review of Systems Cardiovascular: Cardiovascular: Denies chest pain Respiratory: Respiratory: Reports dyspnea Gastrointestinal: Gastrointestinal: Denies abdominal pain, Denies nausea and Denies vomiting Genitourinary: Genitourinary: Reports hematuria, Denies dysuria, Denies flank pain, Denies urinary frequency, Denies urinary hesitancy, Denies urinary incontinence and Denies urinary urgency PMFSH Past Medical History Medical History Anemia DM2 (diabetes mellitus, type 2) Hypothyroidism Morbid obesity with BMI of 50.0-59.9, adult TIA (transient ischemic attack) Surgical History Surgical History Hx of bilateral cataract extraction S/P carotid endarterectomy Family History Family History Sibling Acute myocardial infarction Mother Heart disease Sibling Hypertension Father Cancer Hypertension Sibling Hypothyroidism Social History Social History Social History: The patient is and he has 1 daughter. He does not have a durabl
--- NOTE | 2020-11-10 16:48 | PM.IMPN ---
Progress Note: A&P Assessment and Plan (1) Acute respiratory failure with hypoxia: Code(s): J96.01 - Acute respiratory failure with hypoxia Status: Acute Assessment and Plan: The patient is currently on a BiPAP machine and appears to be tolerating it well. The patient has been talking in full sentences. Wean off of BiPAP when feasible. After reviewing the chest x-ray to me this appears to be more of congestive heart failure however the ED physician felt that this was community-acquired pneumonia. Blood cultures are pending. Patient has no leukocytosis. No fever. No chills. No cough. The patient has an elevated D-dimer. V/Q scan when feasible. 11/10/20 16:48 patient is 70-year-old morbidly obese with BMI of 53 patient presented emergency department with a complaint 1 week increasing shortness of breath with exertion lower extremity swelling abdomen an along scrotal, patient has acute on chronic hypercarbic respiratory failure most likely patient has a multifactorial secondary to morbid obesity hypoventilation, sleep apnea, and suspect patient has congestive heart failure cardiac echo is pending, discussed with the pulmonology plan is to start the patient on noninvasive ventilator, patient is seen by heat reader suspect patient had right heart failure core pulmonale secondary to sleep apnea morbidly obese and most likely has a left heart failure cardiac echo is pending will continue to diurese the patient and monitor Is and Os and further recommendation to follow, will follow-up on cardiac echo and and plan accordingly. (2) CHF (congestive heart failure): Qualifiers: Heart failure chronicity: unspecified Heart failure type: unspecified Qualified Code(s): I50.9 - Heart failure, unspecified Code(s): I50.9 - Heart failure, unspecified Status: Acute Assessment and Plan: An echo has been ordered. We have to carefully give Lasix as he has acute renal failure. (3) Community acquired pneumonia: Qualifiers: Laterality: right Lung location: lower lobe of lung Qualified Code(s): J18.9 - Pneumonia, unspecified organism Code(s): J18.9 - Pneumonia, unspecified organism Status: Acute Assessment and Plan: Patient was started on azithromycin Rocephin. Please wean off when feasible. This most likely is congestive heart failure pneumonia. (4) Anemia: Code(s): D64.9 - Anemia, unspecified Status: Chronic Assessment and Plan: May be related to the acute renal failure. (5) Hypothyroidism: Code(s): E03.9 - Hypothyroidism, unspecified Status: Chronic Assessment and Plan: Continue levothyroxine and check thyroid level. (6) DM2 (diabetes mellitus, type 2): Code(s): E11.9 - Type 2 diabetes mellitus without complications Status: Chronic Assessment and Plan: Accu-Cheks AC and HS. Check A1c. The patient stated his last 6.1. Patient is in acute renal failure swollen hold his metformin. (7) Kidney failure: Qualifiers: Acute renal failure type: unspecified Renal failure chronicity: acute Qualified Code(s): N17.9 - Acute kidney failure, unspecified Code(s): N19 - Unspecified kidney failure Status: Acute Assessment and Plan: I did order renal ultrasound consulted nephrology. (8) Elevated troponin: Code(s): R77.8 - Other specified abnormalities of plasma proteins Status: Acute Assessment and Plan: Could be related to the acute renal failure. Could be related to congestive heart failure. Patient is not having any chest discomfort at this time. Please continue to trend. Subjective Date/time seen: 11/10/20 16:48 patient is 70-year-old morbidly obese with BMI of 53 patient presented emergency department with a complaint 1 week increasing shortness of breath with exertion lower extremity swelling abdomen an along scrotal, patient has acute on chronic hypercarbic respirator
[2020-11-10 16:56] LABS: Glucose Point of Care 82 (65-105)
[2020-11-10] MEDS: carvediloL 3.125 MG TABLET PO (20:47)
[2020-11-10 21:19] LABS: Glucose Point of Care 115 (65-105)
[2020-11-11] VITALS (19 sets, daily range): BP systolic 131–173; BP diastolic 37–87; PULSE 56–94; RESP 14–26; TEMP 35.8–36.5; O2SAT 20–100
[2020-11-11 04:45] LABS: Hematocrit 39.4 % (42.0-52.0); Hemoglobin 11.7 g/dL (14.0-18.0); Mean Corpuscular HGB Conc 29.7 g/dl (32-36); Mean Corpuscular Hemoglobin 32.2 pg (26-34); Mean Corpuscular Volume 108.5 fl (80-100); Mean Platelet Volume 12.9 fl (7.4-10.4); Platelet Count Result 101 k/mm3 (150-375); Red Blood Count 3.63 M/mm3 (4.6-6.20); Red Cell Distribution Width 16.2 % (11.5-14.5); White Blood Count 8.1 K/mm3 (4.5-10.0)
[2020-11-11 05:24] LABS: Albumin Level 3.6 g/dL (3.5-5.1); Anion Gap 4 mmol/L (8-16); Blood Urea Nitrogen 73 mg/dL (9-20); Calcium 8.4 mg/dL (8.4-10.2); Carbon Dioxide 35 mmol/L (22-30); Chloride 104 mmol/L (98-107); Estimated CRCL calculation 55 ml/min; Estimated Glomerular Filt Rate 35; Glucose < 30 mg/dL (75-110); Potassium 4.2 mmol/L (3.4-5.0); Sodium 143 mmol/L (137-145)
[2020-11-11] MEDS: DEXTROSE 50% 25 GM/50 ML SYRINGE IV PUSH ×8 (05:32→20:33)
[2020-11-11] MEDS: LEVOTHYROXINE SODIUM 75 MCG TABLET PO (05:32)
[2020-11-11] MEDS: FUROSEMIDE INJ 40 MG/4 ML VIAL IV PUSH ×3 (05:32→23:45)
[2020-11-11] MEDS: LEVOTHYROXINE SODIUM 100 MCG TABLET PO (05:32)
[2020-11-11] MEDS: HEPARIN SODIUM 5,000 UNITS/ML VIAL 5000 UNITS SUB-Q ×3 (05:33→23:45)
[2020-11-11 06:11] LABS: Alveolar/Arterial O2 Gradient 151.4 mmHg; Fractional Inspired Oxygen 40 %; HCO3 ABG 29.7 mEq/l (22.0-26.0); Oxygen Content ABG 14.9 %vol (16.0-22.0); PO2 ABG 55.6 mmHg (80.0-100.0); PO2 FiO2 Ratio Arterial Blood 1.39 %; Total Hemoglobin 12.5 g/dL (12.0-18.0)
[2020-11-11 06:12] LABS: pH ABG 7.258 (7.350-7.450)
[2020-11-11 06:13] LABS: Modified Allen's Test Pass; Oxygen Saturation ABG 83.3 % (95.0-100.0); Site Drawn RIGHT RADIAL
[2020-11-11 06:18] LABS: Device BIPAP
[2020-11-11 06:31] LABS: Glucose Point of Care 54 (65-105)
--- NOTE | 2020-11-11 06:32 | WPDUROPN2 ---
Progress Note: A&P Assessment and Plan (1) BPH (benign prostatic hyperplasia): Code(s): N40.0 - Benign prostatic hyperplasia without lower urinary tract symptoms Status: Acute Assessment and Plan: Start Flomax and Finasteride - should remain on both indefinately. (2) Retention of urine: Code(s): R33.9 - Retention of urine, unspecified Status: Acute Assessment and Plan: Difficult carrizales catheter placement d/t severe scrotal and penile edema. A 16fr straight catheter was placed sucessfully, betadine swabs used prior to insertion, 550cc of clear yellow urine on return. Carrizales should remain for 7-10 days then a voiding trial can be done. Difficulty with urination will continue d/t BPH versus severe penile edema. (3) Kidney failure: Qualifiers: Acute renal failure type: unspecified Renal failure chronicity: acute Qualified Code(s): N17.9 - Acute kidney failure, unspecified Code(s): N19 - Unspecified kidney failure Status: Acute Assessment and Plan: Creat. improved slightly overnight (4) Scrotal edema: Code(s): N50.89 - Other specified disorders of the male genital organs Status: Acute Assessment and Plan: Should resolve with diuresis Elevate Scrotum with rolled towel Subjective Subjective Date/Time Seen: 11/11/20 06:32 Tolerating catheter, urine clear Review of Systems Cardiovascular: Cardiovascular: Denies chest pain, Denies lightheadedness, Denies palpitations and Denies dyspnea Respiratory: Respiratory: Denies dyspnea Gastrointestinal: Gastrointestinal: Denies diarrhea, Denies nausea and Denies vomiting Genitourinary: Genitourinary: Denies hematuria and Denies dysuria Endocrine: Endocrine: Denies palpitations Exam Const: General: no acute distress Resp: Effort & Inspection: normal respiratory effort GI: Inspection: non-distended GI Palp: No abdominal tenderness and No Guarding due to palpation present (GI) Auscultation: normal bowel sounds Urinary Catheter: Urinary Catheter: patent and draining and urine clear Objective Data Vital Signs Vital Signs: Vital Signs - 24 hr 11/10/20 08:00 11/10/20 09:39 11/10/20 10:00 Temperature 98 F Pulse Rate 65 64 Respiratory Rate 24 H Blood Pressure 150/65 H Pulse Oximetry 99 95 11/10/20 11:56 11/10/20 12:00 11/10/20 14:00 Temperature 98.1 F Pulse Rate 64 63 63 Respiratory Rate 16 28 H Blood Pressure 178/62 H Pulse Oximetry 94 100 11/10/20 16:00 11/10/20 18:00 11/10/20 20:00 Temperature 98.7 F 96.8 F L Pulse Rate 66 67 70 Respiratory Rate 24 H 20 Blood Pressure 145/62 H 157/80 H Pulse Oximetry 100 100 11/10/20 20:47 11/10/20 22:00 11/10/20 22:40 Temperature Pulse Rate 70 70 64 Respiratory Rate 16 Blood Pressure Pulse Oximetry 94 11/10/20 23:04 11/10/20 23:21 11/11/20 01:52 Temperature 97.5 F L Pulse Rate 68 65 60 Respiratory Rate 20 15 14 Blood Pressure 142/53 H Pulse Oximetry 94 92 90 11/11/20 02:00 11/11/20 04:00 11/11/20 05:39 Temperature 97.5 F L Pulse Rate 56 L 56 L 58 L Respiratory Rate 15 Blood Pressure 154/50 H Pulse Oximetry 93 Intake/Output Intake/Output: Intake & Output 11/08/20 11/09/20 11/10/20 11/11/20 23:59 23:59 23:59 23:59 Intake Total 290 1830 600 Output Total 4238 598 1335 Balance -810 1280 -1000 Meds/Results Medications: Active Medications Generic Name Dose Route Start Last Admin Trade Name Freq PRN Reason Stop Dose Admin Albuterol 2 puff 11/09/20 14:24 Albuterol Sulfate (*Sp) Aerosol 1 Puff INHALATION Q6HRT PRN Shortness Of Breath Aspirin 81 mg 11/10/20 08:00 11/10/20 08:32 Aspirin 81 Mg Chewable Tablet PO 81 mg DAILY@0800 [facility] Administration Atorvastatin Calcium 20 mg 11/10/20 09:00 11/10/20 08:32 Atorvastatin 20 Mg Tablet PO 20 mg DAILY [facility] Administration Carvedilol 3.125 mg 11/10/20 21:00 11/10/20 2
--- NOTE | 2020-11-11 06:37 | P.CDI_ITS ---
CDI Query Clarification Request -CHF, unspecified has been documented -11/10 Echo summary: EF 65-70%, grade II diastolic dysfunction -Furosemide 40mg IV q 8 hrs ordered Please further specify type and acuity of CHF: * Systolic *Acute * Diastolic *Chronic * Both systolic and diastolic *Acute on Chronic * Unable to determine *Unable to determine <Mey Swann RN - Last Filed: 11/11/20 06:43> Clarified Diagnosis (1) Acute on chronic diastolic (congestive) heart failure: Code(s): I50.33 - Acute on chronic diastolic (congestive) heart failure <Mey Swann RN - Last Filed: 11/11/20 06:43> Status: Acute <Mey Swann RN - Last Filed: 11/11/20 06:43> Assessment and Plan: Patient with acute on chronic diastolic congestive heart failure patient is seen by talent acquisition associate being diuresed. <Blu Muñoz MD - Last Filed: 11/11/20 13:01>
[2020-11-11 08:20] LABS: Glucose Point of Care 68 (65-105)
[2020-11-11] MEDS: ASPIRIN 81 MG CHEWABLE TABLET PO (08:24)
[2020-11-11] MEDS: carvediloL 3.125 MG TABLET PO ×2 (08:24→20:44)
[2020-11-11] MEDS: ATORVASTATIN 20 MG TABLET PO (08:24)
[2020-11-11] MEDS: FINASTERIDE 5 MG TABLET PO (08:24)
[2020-11-11] MEDS: TAMSULOSIN HCL 0.4 MG CAPSULE PO (08:24)
[2020-11-11 08:52] LABS: Glucose Point of Care 116 (65-105)
[2020-11-11 08:53] LABS: Alveolar/Arterial O2 Gradient 150.5 mmHg; Base Excess ABG 4.1 mEq/l (+/-2.0); Fractional Inspired Oxygen 60 %; HCO3 ABG 33.4 mEq/l (22.0-26.0); Oxygen Content ABG 18.7 %vol (16.0-22.0); Oxygen Saturation ABG 99.1 % (95.0-100.0); Oxyhemoglobin 98.1 % THb (90.0-100.0); PO2 ABG 195.6 mmHg (80.0-100.0); PO2 FiO2 Ratio Arterial Blood 3.26 %; Total Hemoglobin 13.3 g/dL (12.0-18.0)
[2020-11-11 08:56] LABS: Device NON-INVASIVE VENT; Modified Allen's Test Pass; Non-Invasive Vent Rate 14 /MIN; PCO2 ABG 74.3 mmHg (35.0-45.0); Site Drawn RIGHT RADIAL
[2020-11-11 08:57] LABS: Non-Invasive Expiratory Pressure 16 CMH2O
--- NOTE | 2020-11-11 10:21 | PM.PNCARD ---
Progress Note: A&P Assessment and Plan (1) Elevated troponin: Code(s): R77.8 - Other specified abnormalities of plasma proteins Status: Acute Assessment and Plan: This is not related to acute plaque rupture. Most likely secondary to heart failure and renal failure. Continue to check cardiac enzymes until peak. (2) Hypertension associated with diabetes: Code(s): E11.59 - Type 2 diabetes mellitus with other circulatory complications; I15.2 - Hypertension secondary to endocrine disorders Status: Acute Assessment and Plan: Will restart some losartan but at a lower dose of 25 mg daily and up titrate as needed. (3) Hyperlipidemia associated with type 2 diabetes mellitus: Code(s): E11.69 - Type 2 diabetes mellitus with other specified complication; E78.5 - Hyperlipidemia, unspecified Status: Acute Assessment and Plan: Not on statin. Initiate statin therapy. Patient has a history of carotid endarterectomy and should be on a statin regardless. Continue atorvastatin 20 mg daily (4) Morbid obesity with BMI of 50.0-59.9, adult: Code(s): E66.01 - Morbid (severe) obesity due to excess calories; Z68.43 - Body mass index [BMI] 50.0-59.9, adult Status: Acute (5) CHF (congestive heart failure): Qualifiers: Heart failure chronicity: unspecified Heart failure type: unspecified Qualified Code(s): I50.9 - Heart failure, unspecified Code(s): I50.9 - Heart failure, unspecified Status: Acute Assessment and Plan: this is mostly right-sided heart failure and diastolic heart failure. Predominantly from underlying severe sleep apnea and obesity hypoventilation and body habitus. Metolazone 2.5 mg p.o. x1. Continue IV diuretics (6) Acute respiratory failure with hypoxia: Code(s): J96.01 - Acute respiratory failure with hypoxia Status: Acute Assessment and Plan: He undoubtedly has sleep apnea. Pulmonology consultation obtain and is appreciated. Patient with obesity hypoventilation syndrome Subjective Date/time seen: 11/11/20 10:21 Interval history: 70-year-old admitted because of anasarca, renal failure, elevated troponins, shortness of breath Date of service 11/11/2020: Rapid response called this morning because of lack of response. Vitals were stable but glucose was markedly low as well as his CO2 being Elevated. He did receive some glucose. gradually awakened. ABGs drawn and Dr. Das present for BiPAP adjustments. No chest pain or shortness of breath. urine output increased nicely with the addition of metolazone. Review of Systems Review of Systems: All systems reviewed & are unremarkable except as noted in HPI and below Constitutional: Constitutional: Denies body ache(s), Denies fatigue, Denies headache(s) and Reports weakness Eyes: Eyes: Denies blurry vision ENT: Reports Normal hearing present, Denies headache(s) and Denies neck pain Cardiovascular: Cardiovascular: Denies chest pain, Reports pedal edema, Reports leg edema, Reports dyspnea and Reports dyspnea on exertion Respiratory: Respiratory: Reports dyspnea and Reports dyspnea on exertion Gastrointestinal: Gastrointestinal: Reports abdominal pain Musculoskeletal: Musculoskeletal: Denies neck pain Integumentary/Breasts: Skin/Breast: Denies dry skin Neurologic: Reports Normal hearing present, Denies headache(s) and Reports weakness Psychiatric: Psychiatric: Denies anxiety Endocrine: Endocrine: Denies fatigue Hematologic/Lymphatic: Hematologic/Lymphatic: Denies easy bleeding Allergic/Immunologic: Allergic/Immunologic: Denies GI upset with certain foods Exam Narrative: Exam Narrative: Awake alert oriented. Pleasant and appears stated age Const: General: comfortable and no acute distress HENMT: General nose exam: Normal nares present Eyes: Sclera: sclerae normal Neck: Neck: supple and no JVD Chest: Other: No reproducible chest
--- NOTE | 2020-11-11 11:23 | PM.PNPUL ---
Progress Note: A&P Assessment and Plan (1) Obesity hypoventilation syndrome: Code(s): E66.2 - Morbid (severe) obesity with alveolar hypoventilation Status: Acute Assessment and Plan: Patient with obesity hypoventilation syndrome, Enlarged RV with decreased function and normal LV function 65-70% with grade II diastolic dysfunction, mild TR with PASP 45. Patient with morbid obesity and acute on chronic hypercarbic respiratory failure from obesity with a blood gas of 7.30/47.6/55.4 on room air. Patient was initially treated with BiPAP but he could not tolerate the pressures and ripped the mask off overnight. Patient would benefit from noninvasive ventilation for his obesity hypoventilation syndrome to prevent further hospital admissions and morbidity from his hypercarbia. I have contacted respiratory team to initiate this process. 11/10 I discussed with the patient his obesity hypoventilation syndrome and he was willing to try noninvasive ventilation with an AVAPS mode. Settings that were most comfortable for him were rate of 14, tidal volume 500, EPAP 8, minimum inspiratory pressure 9, maximal inspiratory pressure 25, rise of 5 which is the slow S2 on our machine, inspiratory time of 1.2 seconds, FiO2 25% resulted in saturations of 96%. I will check a blood gas in the morning prior to removal of AVAPS NIV. Patient will need to lose weight in the future. 4/2 Wore hospital AVAPS last night with a respiratory rate of 14, tidal volume 500, EPAP 16, minimum inspiratory pressure 17 maximal inspiratory pressure 25 rise of 5, inspiratory time 1.2, 25%. Patient had desats throughout the night and required his oxygen increased to 40%. Patient had a blood gas at the end of the night on the settings with a pH of 7.26/68/56. Rapid response for lethargy that resolved spontaneously and ABG while hospital AVAPS was 7.27/74/195. Home ventilator set up today and patient placed on a VATS 80 with a respiratory rate of 18, tidal volume 550, minimum EPAP 10, maximum EPAP 20, pressure support 5, pressure support max 25, maximum pressure 40, inspiratory time 1.2, with 8 L bleed in. Patient stated that these settings were comfortable and he will wear them tonight. Will check ABG in morning. Will follow with you. (2) Community acquired pneumonia: Qualifiers: Laterality: right Lung location: lower lobe of lung Qualified Code(s): J18.9 - Pneumonia, unspecified organism Code(s): J18.9 - Pneumonia, unspecified organism Status: Acute Assessment and Plan: I have a low clinical suspicion for community-acquired pneumonia and will discontinue ceftriaxone and azithromycin after blood cultures are negative for 48 hours. Of note patient's SARS COVID 2 PCR test is negative. 4/ Cultures negative and will DC antibiotics. (3) Fluid overload: Code(s): E87.70 - Fluid overload, unspecified Status: Acute Assessment and Plan: / Patient has fluid overload likely from cor pulmonale from his obesity hypoventilation syndrome resulting in generalized edema and acute renal failure. Edema and renal function have improved with Lasix 40 IV q.8. Hospitalist and director it to aggressively diurese patient as tolerated by his cardiac and renal cysts in systems. of note patient's free T4 is 0.48 which is low and his TSH is 23.8 which is high. Hospitalist to manage his hypothyroidism. 11/11 A Branch was placed yesterday by Urology and patient is cumulative -530 mL since admission. Subjective Date/time seen: 11/11/20 11:23 Interval history: Narrative: This is a new pulmonary consult for obesity hypoventilation syndrome This is a 67-year-old man with a history of diabetes, morbid obesity, peripheral vascular disease status post carotid endarterectomy who presents with generalized swelling and acute on chronic hypercarbic respiratory failure. Patient was in his usual state of health until approximately 1 week ago when
[2020-11-11] MEDS: metOLazone 2.5 MG TABLET PO (11:51)
[2020-11-11] MEDS: LOSARTAN POTASSIUM 25 MG TABLET PO (11:51)
[2020-11-11 12:05] LABS: Base Excess ABG 3.9 mEq/l (+/-2.0); Fractional Inspired Oxygen 52 %; HCO3 ABG 32.6 mEq/l (22.0-26.0); Oxygen Content ABG 17.6 %vol (16.0-22.0); Oxygen Saturation ABG 96.8 % (95.0-100.0); Oxyhemoglobin 96.1 % THb (90.0-100.0); PO2 ABG 102.9 mmHg (80.0-100.0); PO2 FiO2 Ratio Arterial Blood 1.98 %; Total Hemoglobin 12.9 g/dL (12.0-18.0)
[2020-11-11 12:06] LABS: Device HIGH FLOW NASAL CANN; Modified Allen's Test Pass; PCO2 ABG 70.4 mmHg (35.0-45.0); Site Drawn LEFT RADIAL; pH ABG 7.284 (7.350-7.450)
[2020-11-11 12:14] LABS: Glucose Point of Care 47 (65-105)
--- NOTE | 2020-11-11 12:43 | PC.NURSE ---
Notified Dr Muñoz about critical blood sugar of 47 Gave 50 of Dextrose rechecked blood sugar at 12:30 and results were 86.
--- NOTE | 2020-11-11 12:44 | PM.IMPN ---
Progress Note: A&P Assessment and Plan (1) Acute respiratory failure with hypoxia: Code(s): J96.01 - Acute respiratory failure with hypoxia Status: Acute Assessment and Plan: The patient is currently on a BiPAP machine and appears to be tolerating it well. The patient has been talking in full sentences. Wean off of BiPAP when feasible. After reviewing the chest x-ray to me this appears to be more of congestive heart failure however the ED physician felt that this was community-acquired pneumonia. Blood cultures are pending. Patient has no leukocytosis. No fever. No chills. No cough. The patient has an elevated D-dimer. V/Q scan when feasible. 11/11/20 12:44 11/10/20 patient is 70-year-old morbidly obese with BMI of 53 patient presented emergency department with a complaint 1 week increasing shortness of breath with exertion lower extremity swelling abdomen an along scrotal, patient has acute on chronic hypercarbic respiratory failure most likely patient has a multifactorial secondary to morbid obesity hypoventilation, sleep apnea, and suspect patient has congestive heart failure cardiac echo is pending, discussed with the pulmonology plan is to start the patient on noninvasive ventilator, patient is seen by die maker trim suspect patient had right heart failure core pulmonale secondary to sleep apnea morbidly obese and most likely has a left heart failure cardiac echo is pending will continue to diurese the patient and monitor Is and Os and further recommendation to follow, will follow-up on cardiac echo and and plan accordingly. 11/11 today patient was briefly unresponsive was seen by die maker trim and hepatologist and found to have hypoglycemia as patient takes oral hypoglycemia agents and due to JAMILA and poor urine output the medications remains in the system resulting in hypoglycemia, now the medications are on hold, patient did response his blood sugar was 119, patient was given 2 ampules of D50, will let him eat adlib and monitor blood sugars every 2 hours, Pulmonolgist is adjusting his home trilogy and patient has acute on chronic diastolic congestive heart failure and seen by die maker trim and recommending to continue to diurese the patient, will conitnue to monitor and have PT/OT work with patient. (2) CHF (congestive heart failure): Qualifiers: Heart failure chronicity: unspecified Heart failure type: unspecified Qualified Code(s): I50.9 - Heart failure, unspecified Code(s): I50.9 - Heart failure, unspecified Status: Acute Assessment and Plan: An echo has been ordered. We have to carefully give Lasix as he has acute renal failure. (3) Community acquired pneumonia: Qualifiers: Laterality: right Lung location: lower lobe of lung Qualified Code(s): J18.9 - Pneumonia, unspecified organism Code(s): J18.9 - Pneumonia, unspecified organism Status: Acute Assessment and Plan: Patient was started on azithromycin Rocephin. Please wean off when feasible. This most likely is congestive heart failure pneumonia. (4) Anemia: Code(s): D64.9 - Anemia, unspecified Status: Chronic Assessment and Plan: May be related to the acute renal failure. (5) Hypothyroidism: Code(s): E03.9 - Hypothyroidism, unspecified Status: Chronic Assessment and Plan: Continue levothyroxine and check thyroid level. (6) DM2 (diabetes mellitus, type 2): Code(s): E11.9 - Type 2 diabetes mellitus without complications Status: Chronic Assessment and Plan: Accu-Cheks AC and HS. Check A1c. The patient stated his last 6.1. Patient is in acute renal failure swollen hold his metformin. (7) Kidney failure: Qualifiers: Acute renal failure type: unspecified Renal failure chronicity: acute Qualified Code(s): N17.9 - Acute kidney failure, unspecified Code(s): N19 - Unspecified kidney failure Status: Acute As
[2020-11-11 12:45] LABS: Glucose Point of Care 86 (65-105)
--- NOTE | 2020-11-11 13:24 | P.PNNP_ITS ---
Progress Note: A&P Assessment and Plan (1) JAMILA (acute kidney injury): Code(s): N17.9 - Acute kidney failure, unspecified Status: Acute Assessment and Plan: * suspect due to worsening of his suspected obesity hypoventilation syndrome (likely from cor pulmonale) and need for diuretic therapy * renal ultrasound noted * creatinine better in spite of diuresis -- component of renal venous hypertension (being relieved with diuresis?) * follow repeat labs and UOP (2) Chronic kidney disease, stage 3: Code(s): N18.30 - Chronic kidney disease, stage 3 unspecified Status: Chronic Assessment and Plan: * baseline creatinine fluctuates ~ 1.3 - 2.0mg/dl since April 2020 - fluctuates between CKD stage 3A and 3B * probably due to HTN, DM complicated by neuropathy, obesity, vascular disease, and age * serologies pending (for further evaluation) * only has 300mg proteinuria (3) CHF (congestive heart failure): Qualifiers: Heart failure chronicity: unspecified Heart failure type: unspecified Qualified Code(s): I50.9 - Heart failure, unspecified Code(s): I50.9 - Heart failure, unspecified Status: Acute Assessment and Plan: * Cardiology following * Echo results noted * continue IV diuresis (lasix and metolazone) * follow I/Os * follow daily weights (4) Acute respiratory failure with hypoxia: Code(s): J96.01 - Acute respiratory failure with hypoxia Status: Acute Assessment and Plan: * related to #2 but has a component of NEREYDA/obesity hypoventilation syndrome * Pulmonary recommendations noted * follow respiratory status (5) Hypertension: Code(s): I10 - Essential (primary) hypertension Status: Chronic Assessment and Plan: * elevated at this time * diuresis may help with this * follow hemodynamics (6) Diabetes: Code(s): E11.9 - Type 2 diabetes mellitus without complications Status: Chronic Assessment and Plan: * follow accuchecks * on SSI Will continue to follow Subjective Date/time seen: 11/11/20 13:24 Rapid response earlier today thought to be secondary to hypoglycemia and CO2 retention -- responded to measure to increase glucose and changes to BiPAP therapy; better diuresis with addition of metolazone; no other acute i ssues/problems voiced at this time. Exam Narrative: Exam Narrative: General: WD/WN male in NAD Heart: normal S1 and S2; no rub Lungs: bibasilar crackles present Abdomen: soft, nontender, nondistended, positive bowel sounds Extremities: no cyanosis or clubbing; 3+ edema with associated scrotal edema Skin: chronic stasis changes noted Objective Data Vital Signs Vital Signs: Vital Signs Temp Pulse Resp BP Pulse Ox 11/11/20 12:00 36.3 C L 64 26 H 131/41 L 99 11/11/20 08:49 63 14 157/87 H 97 11/11/20 08:24 63 11/11/20 08:00 36.5 C 60 17 150/40 H 100 11/11/20 07:50 61 16 96 11/11/20 05:39 58 L 11/11/20 04:00 36.4 C L 56 L 15 154/50 H 93 11/11/20 02:00 56 L 11/11/20 01:52 60 14 90 11/10/20 23:21 36.4 C L 65 15 142/53 H 92 11/10/20 23:04 68 20 94 11/10/20 22:40 64 16 94 11/10/20 22:00 70 11/10/20 20:47 70 11/10/20 20:00 36.0 C L 70 20 157/80 H 100 11/10/20 18:00 67
--- NOTE | 2020-11-11 13:24 | PM.PNNEP ---
Progress Note: A&P Assessment and Plan (1) JAMILA (acute kidney injury): Code(s): N17.9 - Acute kidney failure, unspecified Status: Acute Assessment and Plan: suspect due to worsening of his suspected obesity hypoventilation syndrome (likely from cor pulmonale) and need for diuretic therapy renal ultrasound noted creatinine better in spite of diuresis -- component of renal venous hypertension (being relieved with diuresis?) follow repeat labs and UOP (2) Chronic kidney disease, stage 3: Code(s): N18.30 - Chronic kidney disease, stage 3 unspecified Status: Chronic Assessment and Plan: baseline creatinine fluctuates ~ 1.3 - 2.0mg/dl since April 2020 - fluctuates between CKD stage 3A and 3B probably due to HTN, DM complicated by neuropathy, obesity, vascular disease, and age serologies pending (for further evaluation) only has 300mg proteinuria (3) CHF (congestive heart failure): Qualifiers: Heart failure chronicity: unspecified Heart failure type: unspecified Qualified Code(s): I50.9 - Heart failure, unspecified Code(s): I50.9 - Heart failure, unspecified Status: Acute Assessment and Plan: Cardiology following Echo results noted continue IV diuresis (lasix and metolazone) follow I/Os follow daily weights (4) Acute respiratory failure with hypoxia: Code(s): J96.01 - Acute respiratory failure with hypoxia Status: Acute Assessment and Plan: related to #2 but has a component of NEREYDA/obesity hypoventilation syndrome Pulmonary recommendations noted follow respiratory status (5) Hypertension: Code(s): I10 - Essential (primary) hypertension Status: Chronic Assessment and Plan: elevated at this time diuresis may help with this follow hemodynamics (6) Diabetes: Code(s): E11.9 - Type 2 diabetes mellitus without complications Status: Chronic Assessment and Plan: follow accuchecks on SSI Will continue to follow Subjective Date/time seen: 11/11/20 13:24 Rapid response earlier today thought to be secondary to hypoglycemia and CO2 retention -- responded to measure to increase glucose and changes to BiPAP therapy; better diuresis with addition of metolazone; no other acute issues/problems voiced at this time. Exam Narrative: Exam Narrative: General: WD/WN male in NAD Heart: normal S1 and S2; no rub Lungs: bibasilar crackles present Abdomen: soft, nontender, nondistended, positive bowel sounds Extremities: no cyanosis or clubbing; 3+ edema with associated scrotal edema Skin: chronic stasis changes noted Objective Data Vital Signs Vital Signs: Vital Signs Temp Pulse Resp BP Pulse Ox 11/11/20 12:00 36.3 C L 64 26 H 131/41 L 99 11/11/20 08:49 63 14 157/87 H 97 11/11/20 08:24 63 11/11/20 08:00 36.5 C 60 17 150/40 H 100 11/11/20 07:50 61 16 96 11/11/20 05:39 58 L 11/11/20 04:00 36.4 C L 56 L 15 154/50 H 93 11/11/20 02:00 56 L 11/11/20 01:52 60 14 90 11/10/20 23:21 36.4 C L 65 15 142/53 H 92 11/10/20 23:04 68 20 94 11/10/20 22:40 64 16 94 11/10/20 22:00 70 11/10/20 20:47 70 11/10/20 20:00 36.0 C L 70 20 157/80 H 100 11/10/20 18:00 67 11/10/20 16:00 37.1 C 66 24 H 145/62 H 100 Intake/Output Intake/Output: Intake & Output 11/08/20 11/09/20 11/10/20 11/11/20 23:59 23:59 23:59 23:59 Intake Total 290 1830 600 Output Total 6867 673 1305 Balance -810 1280 -2500 Meds/Results Medications: Active Medications Generic Name Dose Route Start Last Admin Trade Name Freq PRN Reason Stop Dose Admin Albuterol 2 puff 11/09/20 14:24 Albuterol Sulfate (*Sp) Aerosol 1 Puff INHALATION Q6HRT PRN Shortness Of Breath Aspirin 81 mg 11/10/20 08:00 11/11/20 08:24 Aspirin 81 Mg Chewable Tablet PO 81 mg DAILY@0800 [facility] Admin
--- NOTE | 2020-11-11 14:38 | PCPTNOTE ---
Initiated PT eval. Sat EOB w/ total assist +1. Pt unable to sit due to decreased balance and SOB. O2 sats 96-94% on Bipap. Pt returned to supine in bed and Eusebia COBB aware. Will try to eval tomorrow.
[2020-11-11 15:08] LABS: Glucose Point of Care 65 (65-105)
[2020-11-11 16:50] LABS: Glucose Point of Care 81 (65-105)
[2020-11-11 18:49] LABS: Glucose Point of Care 55 (65-105)
[2020-11-11 19:42] LABS: Glucose Point of Care 63 (65-105)
[2020-11-11 22:10] LABS: Glucose Point of Care 52 (65-105)
[2020-11-11] MEDS: DEXTROSE 50% 25 GM/50 ML SYRINGE 50 GM (22:22)
[2020-11-11 23:06] LABS: Alveolar/Arterial O2 Gradient 261.6 mmHg; Base Excess ABG 4.9 mEq/l (+/-2.0); Fractional Inspired Oxygen 60 %; HCO3 ABG 33.3 mEq/l (22.0-26.0); Oxygen Content ABG 17.1 %vol (16.0-22.0); Oxygen Saturation ABG 95.9 % (95.0-100.0); Oxyhemoglobin 95.4 % THb (90.0-100.0); PO2 ABG 90.6 mmHg (80.0-100.0); PO2 FiO2 Ratio Arterial Blood 1.51 %; Total Hemoglobin 12.7 g/dL (12.0-18.0); pH ABG 7.303 (7.350-7.450)
[2020-11-11 23:07] LABS: Modified Allen's Test Pass; PCO2 ABG 68.7 mmHg (35.0-45.0); Site Drawn RIGHT RADIAL
[2020-11-11 23:08] LABS: Device HIGH FLOW NASAL CANN
[2020-11-11] MEDS: DEXTROSE 10% 500 ML 30 ML IV CONT (23:46)
[2020-11-12] VITALS (21 sets, daily range): BP systolic 99–150; BP diastolic 44–81; PULSE 66–97; RESP 18–22; TEMP 36.1–36.5; O2SAT 90–99
[2020-11-12 01:56] LABS: Glucose Point of Care 34 (65-105)
[2020-11-12 02:40] LABS: Glucose Point of Care 50 (65-105)
[2020-11-12 03:02] LABS: Glucose Point of Care 39 (65-105)
[2020-11-12 03:02] LABS: Glucose Point of Care 98 (65-105)
[2020-11-12 03:02] LABS: Glucose Point of Care 129 (65-105)
[2020-11-12] MEDS: GLUCAGON FOR INJ 1 MG VIAL IM (03:15)
[2020-11-12] MEDS: DEXTROSE 50% 25 GM/50 ML SYRINGE IV PUSH ×8 (04:14→22:42)
[2020-11-12 04:16] LABS: Glucose Point of Care 63 (65-105)
[2020-11-12 04:16] LABS: Glucose Point of Care < 20 (65-105)
[2020-11-12 04:16] LABS: Glucose Point of Care 30 (65-105)
[2020-11-12 05:10] LABS: Hematocrit 36.6 % (42.0-52.0); Hemoglobin 11.3 g/dL (14.0-18.0); Mean Corpuscular HGB Conc 30.9 g/dl (32-36); Mean Corpuscular Hemoglobin 33.4 pg (26-34); Mean Corpuscular Volume 108.3 fl (80-100); Mean Platelet Volume 12.5 fl (7.4-10.4); Platelet Count Result 92 k/mm3 (150-375); Red Blood Count 3.38 M/mm3 (4.6-6.20); Red Cell Distribution Width 15.9 % (11.5-14.5); White Blood Count 8.3 K/mm3 (4.5-10.0)
[2020-11-12 05:23] LABS: Glucose Point of Care 63 (65-105)
[2020-11-12 05:34] LABS: Albumin Level 3.3 g/dL (3.5-5.1); Anion Gap 5 mmol/L (8-16); Blood Urea Nitrogen 74 mg/dL (9-20); Calcium 8.2 mg/dL (8.4-10.2); Carbon Dioxide 34 mmol/L (22-30); Chloride 101 mmol/L (98-107); Estimated CRCL calculation 61 ml/min; Estimated Glomerular Filt Rate 40; Glucose 173 mg/dL (75-110); Phosphorus 3.6 mg/dL (2.5-4.5); Potassium 3.8 mmol/L (3.4-5.0); Sodium 140 mmol/L (137-145)
[2020-11-12] MEDS: LEVOTHYROXINE SODIUM 100 MCG TABLET PO (05:34)
[2020-11-12] MEDS: LEVOTHYROXINE SODIUM 75 MCG TABLET PO (05:34)
[2020-11-12] MEDS: FUROSEMIDE INJ 40 MG/4 ML VIAL IV PUSH ×3 (05:34→22:43)
[2020-11-12] MEDS: HEPARIN SODIUM 5,000 UNITS/ML VIAL 5000 UNITS SUB-Q ×3 (05:34→22:43)
[2020-11-12 06:12] LABS: Glucose Point of Care 104 (65-105)
[2020-11-12 07:14] LABS: Glucose Point of Care 51 (65-105)
[2020-11-12 08:39] LABS: Glucose Point of Care 115 (65-105)
--- NOTE | 2020-11-12 09:14 | PM.PNCARD ---
Progress Note: A&P Additional Plan 70-year-old man with: Marked a volume overload related to previously undiagnosed Petterchak and therefore untreated obesity hypoventilation sleep apnea syndrome with significant cor pulmonale. Generally speaking in this situation with institution of affective therapy for his hypoventilation his volume overload will significantly improved. He is diuresing effectively with a combination of intravenous furosemide and metolazone. I think we should continue this for a while but the principal problem here is not congestive heart failure per se. There is no plan to conduct an ischemia workup in response to the troponin levels. Brian Sotelo MD [facility] Subjective Date/time seen: Date of service: 11/12/20 09:14 Interval history: Follow-up visit in this 70-year-old man with: Profound volume overload, this is the result of morbid obesity/hypoventilation sleep apnea syndrome and cor pulmonale. No other evidence or reason to think that he has congestive heart failure per se. Modest troponin elevation is not in indicative of an acute coronary event and I do not have clinical explanation as to why it was sampled in the 1st place. Patient sleeping when I entered the room to see him upon awakening he is comfortable and offers no other complaints. Exam Const: General: no acute distress Other: Massively obese man supine in bed sleeping upon awakening a reports to be comfortable and offers no complaints HENMT: Mouth: Yes moist mucous membranes Eyes: Sclera: sclerae normal Neck: Neck: supple Thyroid: thyroid normal Other: Impossible to assess venous pressure given his body habitus Resp: Auscultation: diminished lung sounds Other: Breath sounds are distant but essentially clear Cardio: Rate: regular rate Rhythm: regular rhythm Other: PMI is not palpable GI: GI Palp: Yes Soft to palpation Auscultation: normal bowel sounds Neuro: Cognition (Neuro): normal cognition Extrem: Other: Marked chronic edema Objective Data Vital Signs Vital Signs: Vital Signs - 24 hr 11/11/20 10:00 11/11/20 12:00 11/11/20 14:00 Temperature 36.3 C L Pulse Rate 65 64 64 Respiratory Rate 26 H Blood Pressure 131/41 L Pulse Oximetry 95 11/11/20 16:00 11/11/20 18:00 11/11/20 19:29 Temperature 36.2 C L 35.8 C L Pulse Rate 68 69 70 Respiratory Rate 24 H 18 Blood Pressure 173/45 H 141/37 H Pulse Oximetry 95 94 11/11/20 20:00 11/11/20 20:44 11/11/20 22:00 Temperature Pulse Rate 73 94 71 Respiratory Rate Blood Pressure Pulse Oximetry 11/11/20 23:09 11/11/20 23:28 11/12/20 00:00 Temperature 36.1 C L Pulse Rate 69 73 72 Respiratory Rate 19 Blood Pressure 133/48 L Pulse Oximetry 93 20 L 11/12/20 02:00 11/12/20 02:21 11/12/20 03:40 Temperature 36.1 C L Pulse Rate 69 71 67 Respiratory Rate 22 H 18 Blood Pressure 132/47 L Pulse Oximetry 94 99 11/12/20 04:00 11/12/20 06:00 11/12/20 08:00 Temperature 36.5 C Pulse Rate 66 67 69 Respiratory Rate 18 Blood Pressure 99/81 L Pulse Oximetry 92 Intake/Output Intake/Output: Intake & Output 11/09/20 11/10/20 11/11/20 11/12/20 23:59 23:59 23:59 23:59 Intake Total 290 1830 1460 700 Output Total 9864 011 9237 1900 Balance -810 1280 -3290 -1200 Meds/Results Medications: Active Medications Generic Name Dose Route Start Last Admin Trade Name Miguel Angelq PRN Reason Stop Dose Admin Albuterol 2 puff 11/09/20 14:24 Albuterol Sulfate (*Sp) Aerosol 1 Puff INHALATION Q6HRT PRN Shortness Of Breath Aspirin 81 mg 11/10/20 08:00 11/11/20 08:24 Aspirin 81 Mg Chewable Tablet PO 81 mg DAILY@0800 [facility] Administration Atorvastatin Calcium 20 mg 11/10/20 09:00 11/11/20 08:24 Atorvastatin 20 Mg Tablet PO 20 mg DAILY RAD[facility] Administration Carvedilol 3.125 mg 11/10/20 21:00 11/11/20 20:44 Carvedilol 3.125 Mg Tablet PO 3.125 mg Q12HR RADHA Administration Dextrose 5
[2020-11-12] MEDS: TAMSULOSIN HCL 0.4 MG CAPSULE PO (09:37)
[2020-11-12] MEDS: ASPIRIN 81 MG CHEWABLE TABLET PO (09:37)
[2020-11-12] MEDS: LOSARTAN POTASSIUM 25 MG TABLET PO (09:37)
[2020-11-12] MEDS: ATORVASTATIN 20 MG TABLET PO (09:37)
[2020-11-12] MEDS: carvediloL 3.125 MG TABLET PO ×2 (09:37→20:11)
[2020-11-12] MEDS: FINASTERIDE 5 MG TABLET PO (09:37)
[2020-11-12 09:59] LABS: Glucose Point of Care 29 (65-105)
--- NOTE | 2020-11-12 10:01 | PCPTNOTE ---
Attempted PT eval this am - blood sugar was at 24. Not medically appropriate for PT eval this a.m.
--- NOTE | 2020-11-12 10:07 | PM.PNNEP ---
Progress Note: A&P Assessment and Plan (1) JAMILA (acute kidney injury): Code(s): N17.9 - Acute kidney failure, unspecified Status: Acute Assessment and Plan: resolving suspect due to worsening of his suspected obesity hypoventilation syndrome (likely from cor pulmonale) and need for diuretic therapy component of urinary retention playing a role -- carrizales placed by Urology due to penile/scrotal edema renal ultrasound noted creatinine better in spite of diuresis -- component of renal venous hypertension (being relieved with diuresis?) follow repeat labs and UOP (2) Chronic kidney disease, stage 3: Code(s): N18.30 - Chronic kidney disease, stage 3 unspecified Status: Chronic Assessment and Plan: baseline creatinine fluctuates ~ 1.3 - 2.0mg/dl since April 2020 - fluctuates between CKD stage 3A and 3B probably due to HTN, DM complicated by neuropathy, obesity, vascular disease, and age serologies pending (for further evaluation) only has 300mg proteinuria (3) CHF (congestive heart failure): Qualifiers: Heart failure chronicity: unspecified Heart failure type: unspecified Qualified Code(s): I50.9 - Heart failure, unspecified Code(s): I50.9 - Heart failure, unspecified Status: Acute Assessment and Plan: Cardiology consulted more right sided - likely from pulmonary HTN/cor pulmonale continue IV diuresis follow I/Os follow daily weights (4) Acute respiratory failure with hypoxia: Code(s): J96.01 - Acute respiratory failure with hypoxia Status: Acute Assessment and Plan: related to #2 but has a component of NEREYDA/obesity hypoventilation syndrome Pulmonary recommendations noted follow respiratory status (5) Hypertension: Code(s): I10 - Essential (primary) hypertension Status: Chronic Assessment and Plan: follow trend of hemodynamics ongoing diuresis may help this as well on losartan and carvedilol (6) Diabetes: Code(s): E11.9 - Type 2 diabetes mellitus without complications Status: Chronic Assessment and Plan: follow accuchecks on SSI Will continue to follow Subjective Date/time seen: 11/12/20 10:07 Appears to be doing reasonably well at the time of my visit; more awake and conversant today; issues with hypoglycemia overnight and earlier this AM requiring frequent administration of D50. Exam Narrative: Exam Narrative: General: WD/WN male in NAD Heart: normal S1 and S2; no rub Lungs: decreased breath sound at bases Abdomen: soft, nontender, nondistended, positive bowel sounds Extremities: no cyanosis or clubbing; 2+ edema with associated scrotal edema Skin: chronic stasis changes apparent Objective Data Vital Signs Vital Signs: Vital Signs Temp Pulse Resp BP Pulse Ox 11/12/20 09:37 97 11/12/20 09:36 145/44 H 11/12/20 08:00 36.5 C 68 18 99/81 L 96 11/12/20 06:00 67 11/12/20 04:00 66 11/12/20 03:40 36.1 C L 67 18 132/47 L 99 11/12/20 02:21 71 22 H 94 11/12/20 02:00 69 11/12/20 00:00 72 11/11/20 23:28 36.1 C L 73 133/48 L 20 L 11/11/20 23:09 69 19 93 11/11/20 22:00 71 11/11/20 20:44 94 11/11/20 20:00 73 11/11/20 19:29 35.8 C L 70 18 141/37 H 94 11/11/20 18:00 69 11/11/20 16:00 36.2 C L 68 24 H 173/45 H 95 11/11/20 14:00 64 11/11/20 12:00 36.3 C L 64 26 H 131/41 L 95 Intake/Output Intake/Output: Intake & Output 11/09/20 11/10/20 11/11/20 11/12/20 23:59 23:59 23:59 23:59 Intake Total 290 1830 1460 700 Output Total 9777 606 4305 3450 Balance -810 3360 -9160 -4725 Meds/Results Medications: Active Medications Generic Name Dose Route Start Last Admin Trade Name Freq PRN Reason Stop Dose Admin Albuterol 2 puff 11/09/20 14:24 Albuterol Sulfate (*Sp) Aerosol 1 Puff INHALATION Q6HRT PRN Shortness
--- NOTE | 2020-11-12 10:07 | P.PNNP_ITS ---
Progress Note: A&P Assessment and Plan (1) JAMILA (acute kidney injury): Code(s): N17.9 - Acute kidney failure, unspecified Status: Acute Assessment and Plan: * resolving * suspect due to worsening of his suspected obesity hypoventilation syndrome (likely from cor pulmonale) and need for diuretic therapy * component of urinary retention playing a role -- carrizales placed by Urology due to penile/scrotal edema * renal ultrasound noted * creatinine better in spite of diuresis -- component of renal venous hypertension (being relieved with diuresis?) * follow repeat labs and UOP (2) Chronic kidney disease, stage 3: Code(s): N18.30 - Chronic kidney disease, stage 3 unspecified Status: Chronic Assessment and Plan: * baseline creatinine fluctuates ~ 1.3 - 2.0mg/dl since April 2020 - fluctuates between CKD stage 3A and 3B * probably due to HTN, DM complicated by neuropathy, obesity, vascular disease, and age * serologies pending (for further evaluation) * only has 300mg proteinuria (3) CHF (congestive heart failure): Qualifiers: Heart failure chronicity: unspecified Heart failure type: unspecified Qualified Code(s): I50.9 - Heart failure, unspecified Code(s): I50.9 - Heart failure, unspecified Status: Acute Assessment and Plan: * Cardiology consulted * more right sided - likely from pulmonary HTN/cor pulmonale * continue IV diuresis * follow I/Os * follow daily weights (4) Acute respiratory failure with hypoxia: Code(s): J96.01 - Acute respiratory failure with hypoxia Status: Acute Assessment and Plan: * related to #2 but has a component of NEREYDA/obesity hypoventilation syndrome * Pulmonary recommendations noted * follow respiratory status (5) Hypertension: Code(s): I10 - Essential (primary) hypertension Status: Chronic Assessment and Plan: * follow trend of hemodynamics * ongoing diuresis may help this as well * on losartan and carvedilol (6) Diabetes: Code(s): E11.9 - Type 2 diabetes mellitus without complications Status: Chronic Assessment and Plan: * follow accuchecks * on SSI Will continue to follow Subjective Date/time seen: 11/12/20 10:07 Appears to be doing reasonably well at the time of my visit; more awake and conversant today; issues with hypoglycemia overnight and earlier this AM requiring frequent administration of D50. Exam Narrative: Exam Narrative: General: WD/WN male in NAD Heart: normal S1 and S2; no rub Lungs: decreased breath sound at bases Abdomen: soft, nontender, nondistended, positive bowel sounds Extremities: no cyanosis or clubbing; 2+ edema with associated scrotal edema Skin: chronic stasis changes apparent Objective Data Vital Signs Vital Signs: Vital Signs Temp Pulse Resp BP Pulse Ox 11/12/20 09:37 97 11/12/20 09:36 145/44 H 11/12/20 08:00 36.5 C 68 18 99/81 L 96 11/12/20 06:00 67 11/12/20 04:00 66 11/12/20 03:40 36.1 C L 67 18 132/47 L 99 11/12/20 02:21 71 22 H 94 11/12/20 02:00 69 11/12/20 00:00 72 11/11/20 23:28 36.1 C L 73 133/48 L 20 L 11/11/20 23:09 69 19 93 11/11/20 22:00 71 11/11/20 20:44 94 11/11/20 20:00 73 11/11/20 19:29 35.8 C L 70 18 141/3
[2020-11-12] MEDS: DEXTROSE 10% 500 ML 60 ML IV CONT ×2 (10:27→20:00)
--- NOTE | 2020-11-12 11:37 | PM.PNPUL ---
Progress Note: A&P Assessment and Plan (1) Obesity hypoventilation syndrome: Code(s): E66.2 - Morbid (severe) obesity with alveolar hypoventilation Status: Acute Assessment and Plan: Patient with obesity hypoventilation syndrome, Enlarged RV with decreased function and normal LV function 65-70% with grade II diastolic dysfunction, mild TR with PASP 45. Patient with morbid obesity and acute on chronic hypercarbic respiratory failure from obesity with a blood gas of 7.30/47.6/55.4 on room air. Patient was initially treated with BiPAP but he could not tolerate the pressures and ripped the mask off overnight. Patient would benefit from noninvasive ventilation for his obesity hypoventilation syndrome to prevent further hospital admissions and morbidity from his hypercarbia. I have contacted respiratory team to initiate this process. 11/10 I discussed with the patient his obesity hypoventilation syndrome and he was willing to try noninvasive ventilation with an AVAPS mode. Settings that were most comfortable for him were rate of 14, tidal volume 500, EPAP 8, minimum inspiratory pressure 9, maximal inspiratory pressure 25, rise of 5 which is the slow S2 on our machine, inspiratory time of 1.2 seconds, FiO2 25% resulted in saturations of 96%. I will check a blood gas in the morning prior to removal of AVAPS NIV. Patient will need to lose weight in the future. 4/2 Wore hospital AVAPS last night with a respiratory rate of 14, tidal volume 500, EPAP 16, minimum inspiratory pressure 17 maximal inspiratory pressure 25 rise of 5, inspiratory time 1.2, 25%. Patient had desats throughout the night and required his oxygen increased to 40%. Patient had a blood gas at the end of the night on the settings with a pH of 7.26/68/56. Rapid response for lethargy that resolved spontaneously and ABG while hospital AVAPS was 7.27/74/195. Home ventilator set up today and patient placed on AVAPS-AE with a respiratory rate of 18, tidal volume 550, minimum EPAP 10, maximum EPAP 20, pressure support 5, pressure support max 25, maximum pressure 40, inspiratory time 1.2, with 8 L bleed in. Patient stated that these settings were comfortable and he will wear them tonight. Will check ABG in morning. 4/3 Unable to tolerate home vent mask last night and wore hospital AVAPS respiratory rate of 14, tidal volume 500, EPAP 16, minimum inspiratory pressure 17 maximal inspiratory pressure 25 rise of 5, inspiratory time 1.2, 60%. Tolerated OK. Will call DME and see if they can refit for mask today. Otherwise will change our AVAPS settings to RR 18 and TV 550. More awake today and On 4 L NC with sats 96%. Will follow with you. (2) Community acquired pneumonia: Qualifiers: Laterality: right Lung location: lower lobe of lung Qualified Code(s): J18.9 - Pneumonia, unspecified organism Code(s): J18.9 - Pneumonia, unspecified organism Status: Acute Assessment and Plan: I have a low clinical suspicion for community-acquired pneumonia and will discontinue ceftriaxone and azithromycin after blood cultures are negative for 48 hours. Of note patient's SARS COVID 2 PCR test is negative. 11/11 Cultures negative and will DC antibiotics. (3) Fluid overload: Code(s): E87.70 - Fluid overload, unspecified Status: Acute Assessment and Plan: 11/10 Patient has fluid overload likely from cor pulmonale from his obesity hypoventilation syndrome resulting in generalized edema and acute renal failure. Edema and renal function have improved with Lasix 40 IV q.8. Hospitalist and security guards dispatcher to aggressively diurese patient as tolerated by his cardiac and renal cysts in systems. of note patient's free T4 is 0.48 which is low and his TSH is 23.8 which is high. Hospitalist to manage his hypothyroidism. 11/11 A Branch was placed yesterday by Urology and patient is cumulative -530 mL since admission. 11/12 Minus 4020 since admission. Cr 1.70.
[2020-11-12 12:29] LABS: Glucose Point of Care 71 (65-105)
[2020-11-12 13:23] LABS: Glucose Point of Care 62 (65-105)
[2020-11-12 14:10] LABS: Glucose Point of Care 65 (65-105)
[2020-11-12 14:41] LABS: Myoglobin, Urine <27 mcg/L (<28)
[2020-11-12 14:44] LABS: Glucose Point of Care 54 (65-105)
--- NOTE | 2020-11-12 14:56 | PM.IMPN ---
Progress Note: A&P Assessment and Plan (1) Acute respiratory failure with hypoxia: Code(s): J96.01 - Acute respiratory failure with hypoxia Status: Acute Assessment and Plan: 11/12/20 14:56 The patient is currently on a BiPAP machine and appears to be tolerating it well. The patient has been talking in full sentences. Wean off of BiPAP when feasible. After reviewing the chest x-ray to me this appears to be more of congestive heart failure however the ED physician felt that this was community-acquired pneumonia. Blood cultures are pending. Patient has no leukocytosis. No fever. No chills. No cough. The patient has an elevated D-dimer. V/Q scan when feasible. 11/10/20 patient is 70-year-old morbidly obese with BMI of 53 patient presented emergency department with a complaint 1 week increasing shortness of breath with exertion lower extremity swelling abdomen an along scrotal, patient has acute on chronic hypercarbic respiratory failure most likely patient has a multifactorial secondary to morbid obesity hypoventilation, sleep apnea, and suspect patient has congestive heart failure cardiac echo is pending, discussed with the pulmonology plan is to start the patient on noninvasive ventilator, patient is seen by slab installer suspect patient had right heart failure core pulmonale secondary to sleep apnea morbidly obese and most likely has a left heart failure cardiac echo is pending will continue to diurese the patient and monitor Is and Os and further recommendation to follow, will follow-up on cardiac echo and and plan accordingly. 11/11 today patient was briefly unresponsive was seen by slab installer and heart surgeon and found to have hypoglycemia as patient takes oral hypoglycemia agents and due to JAMILA and poor urine output the medications remains in the system resulting in hypoglycemia, now the medications are on hold, patient did response his blood sugar was 119, patient was given 2 ampules of D50, will let him eat adlib and monitor blood sugars every 2 hours, Medical Clinic Manager is adjusting his home trilogy and patient has acute on chronic diastolic congestive heart failure and seen by slab installer and recommending to continue to diurese the patient, will conitnue to monitor and have PT/OT work with patient. 11/12 patient still quite hyperglycemic, checking blood sugar every 2 hours being treated with 2 ampules D50 every 2 hours, today patient appears more awake and communicating, seen by heart surgeon and slab installer and agreed volume overload secondary to hypoventilation as well as sleep apnea patient is being diuresed and heart surgeon is adjusting is trilogy, will continue to monitor and have PT OT work with the patient. (2) Acute on chronic diastolic (congestive) heart failure: Code(s): I50.33 - Acute on chronic diastolic (congestive) heart failure Status: Acute Assessment and Plan: Patient is volume overloaded with exacerbation acute on chronic diastolic congestive heart failure patient is being diuresed (3) Community acquired pneumonia: Qualifiers: Laterality: right Lung location: lower lobe of lung Qualified Code(s): J18.9 - Pneumonia, unspecified organism Code(s): J18.9 - Pneumonia, unspecified organism Status: Acute Assessment and Plan: Patient started on azithromycin and Rocephin will monitor and repeat chest x-ray (4) Hypothyroidism: Code(s): E03.9 - Hypothyroidism, unspecified Status: Chronic Assessment and Plan: Will continue home regimen (5) JAMILA (acute kidney injury): Code(s): N17.9 - Acute kidney failure, unspecified Status: Acute Assessment and Plan: Most likely acute on chronic kidney disease secondary to diabetic nephropathy (6) DM2 (diabetes mellitus, type 2): Code(s): E11.9 - Type 2 diabetes mellitus without complications Status: Chronic Additional Plan Patient is on hypoglycemic medication now in hypoglycemi
[2020-11-12 18:53] LABS: Glucose Point of Care 87 (65-105)
[2020-11-12 19:54] LABS: Glucose Point of Care 108 (65-105)
[2020-11-12 22:08] LABS: Glucose Point of Care 132 (65-105)
[2020-11-13] VITALS (18 sets, daily range): BP systolic 125–179; BP diastolic 43–65; PULSE 64–79; RESP 16–22; TEMP 36.1–36.8; O2SAT 90–98
[2020-11-13 00:07] LABS: Glucose Point of Care 150 (65-105)
[2020-11-13 02:00] LABS: Glucose Point of Care 127 (65-105)
[2020-11-13] MEDS: DEXTROSE 50% 25 GM/50 ML SYRINGE IV PUSH ×2 (02:07→04:27)
[2020-11-13] MEDS: DEXTROSE 10% 500 ML 60 ML IV CONT (04:17)
[2020-11-13 04:26] LABS: Glucose Point of Care 147 (65-105)
[2020-11-13 04:47] LABS: Hematocrit 39.7 % (42.0-52.0); Hemoglobin 12.2 g/dL (14.0-18.0); Mean Corpuscular HGB Conc 30.7 g/dl (32-36); Mean Corpuscular Hemoglobin 32.8 pg (26-34); Mean Corpuscular Volume 106.7 fl (80-100); Mean Platelet Volume 12.6 fl (7.4-10.4); Platelet Count Result 90 k/mm3 (150-375); Red Blood Count 3.72 M/mm3 (4.6-6.20); Red Cell Distribution Width 15.7 % (11.5-14.5)
[2020-11-13 05:09] LABS: Kappa\\Lambda Light Chains 1.77 (0.26-1.65)
[2020-11-13 05:10] LABS: Albumin Level 3.7 g/dL (3.5-5.1); Anion Gap 3 mmol/L (8-16); Blood Urea Nitrogen 65 mg/dL (9-20); Calcium 8.3 mg/dL (8.4-10.2); Carbon Dioxide 38 mmol/L (22-30); Chloride 98 mmol/L (98-107); Estimated CRCL calculation 69 ml/min; Estimated Glomerular Filt Rate 46; Glucose 151 mg/dL (75-110); Phosphorus 3.5 mg/dL (2.5-4.5); Potassium 3.9 mmol/L (3.4-5.0); Sodium 139 mmol/L (137-145)
[2020-11-13] MEDS: HEPARIN SODIUM 5,000 UNITS/ML VIAL 5000 UNITS SUB-Q ×3 (05:35→21:32)
[2020-11-13] MEDS: FUROSEMIDE INJ 40 MG/4 ML VIAL IV PUSH ×3 (05:35→21:31)
[2020-11-13] MEDS: LEVOTHYROXINE SODIUM 75 MCG TABLET PO (05:39)
[2020-11-13] MEDS: LEVOTHYROXINE SODIUM 100 MCG TABLET PO (05:39)
[2020-11-13 06:06] LABS: Glucose Point of Care 174 (65-105)
[2020-11-13 08:03] LABS: Glucose Point of Care 169 (65-105)
--- NOTE | 2020-11-13 09:05 | PM.PNCARD ---
Progress Note: A&P Additional Plan 70-year-old man with: Profound volume overload related to obesity hypoventilation, sleep apnea and secondary pulmonary hypertension. It is remarkable that we are diuresing him aggressively MICHAEL today is another 4 L negative and metabolic profile shows renal function is actually slightly better. Will continue this as long as he is benefitting from it. Once we start to see a state of worsening prerenal azotemia we will need to back off. Brian Sotelo MD [facility] Subjective Date/time seen: Date of service: 11/13/20 09:05 Interval history: Follow-up visit in this 70-year-old man with: Profound volume overload, this is the result of morbid obesity/hypoventilation sleep apnea syndrome and cor pulmonale. No other evidence or reason to think that he has congestive heart failure per se. Modest troponin elevation is not in indicative of an acute coronary event and I do not have clinical explanation as to why it was sampled in the 1st place. Date of service: 11/13/2020 patient is stable this morning no new complaints. Asking again for me to explain the etiology of his severe volume overload. We had a long discussion about this yesterday obviously he did not remember any of that conversation. Again discussed with him in detail the pathology of obesity hypoventilation syndrome with severe secondary pulmonary hypertension and sleep apnea. Exam Narrative: Exam Narrative: Awake alert oriented. Pleasant and appears stated age Const: General: comfortable and no acute distress Other: Massively obese man supine in bed sleeping upon awakening a reports to be comfortable and offers no complaints HENMT: General nose exam: Normal nares present Mouth: Yes moist mucous membranes Eyes: Sclera: sclerae normal Neck: Neck: supple and no JVD Thyroid: thyroid normal Other: Impossible to assess venous pressure given his body habitus Chest: Other: No reproducible chest wall pain to palpation Resp: Auscultation: crackles and diminished lung sounds Other: Breath sounds are distant but essentially clear Cardio: Rate: regular rate Rhythm: regular rhythm Other: PMI is not palpable GI: Auscultation: normal bowel sounds : Other: Scrotal edema noted Skin: General skin exam: no erythema Other: Chronic stasis changes seen to lower extremities Neuro: Cranial nerves: Yes Normal hearing present Cognition (Neuro): normal cognition Speech: normal speech Extrem: General: edema (Severe edema) bilateral Other: Marked chronic edema Psych: Affect: normal affect Objective Data Vital Signs Vital Signs: Vital Signs - 24 hr 11/12/20 09:36 11/12/20 09:37 11/12/20 10:00 Temperature Pulse Rate 97 69 Respiratory Rate Blood Pressure 145/44 H Pulse Oximetry 11/12/20 11:52 11/12/20 12:00 11/12/20 14:00 Temperature 36.1 C L Pulse Rate 68 67 68 Respiratory Rate 22 H Blood Pressure 135/58 L Pulse Oximetry 91 96 11/12/20 16:00 11/12/20 18:00 11/12/20 19:35 Temperature 36.2 C L 36.2 C L Pulse Rate 70 71 71 Respiratory Rate 20 20 Blood Pressure 128/50 L 107/70 Pulse Oximetry 94 90 11/12/20 20:00 11/12/20 20:11 11/12/20 22:00 Temperature Pulse Rate 72 78 78 Respiratory Rate Blood Pressure Pulse Oximetry 90 11/12/20 22:20 11/12/20 23:54 11/13/20 00:00 Temperature 36.1 C L Pulse Rate 77 71 71 Respiratory Rate 20 20 Blood Pressure 150/59 H Pulse Oximetry 93 90 90 11/13/20 01:30 11/13/20 02:00 11/13/20 03:37 Temperature Pulse Rate 72 69 Respiratory Rate 19 Blood Pressure Pulse Oximetry 96 96 11/13/20 04:00 11/13/20 06:00 11/13/20 08:00 Temperature 36.8 C 36.8 C Pulse Rate 73 64 71 Respiratory Rate 22 H 20 Blood Pressure 125/43 L 139/58 L Pulse Oximetry 96 90 Intake/Output Intake/Output: Intake & Output 11/10/20 11/11/20 11/12/20 11/13/20 23:59 23:59 23:59 23:59 Intake Total 1830 1460 2080 500 Output Total 550 174
[2020-11-13] MEDS: FINASTERIDE 5 MG TABLET PO (09:16)
[2020-11-13] MEDS: TAMSULOSIN HCL 0.4 MG CAPSULE PO (09:16)
[2020-11-13] MEDS: ATORVASTATIN 20 MG TABLET PO (09:16)
[2020-11-13] MEDS: carvediloL 3.125 MG TABLET PO ×2 (09:17→21:31)
[2020-11-13] MEDS: ASPIRIN 81 MG CHEWABLE TABLET PO (09:17)
[2020-11-13] MEDS: LOSARTAN POTASSIUM 25 MG TABLET PO (09:17)
[2020-11-13 10:06] LABS: Glucose Point of Care 151 (65-105)
--- NOTE | 2020-11-13 11:37 | PM.IMPN ---
Progress Note: A&P Assessment and Plan (1) Acute respiratory failure with hypoxia: Code(s): J96.01 - Acute respiratory failure with hypoxia Status: Acute Assessment and Plan: 11/13/20 11:37 The patient is currently on a BiPAP machine and appears to be tolerating it well. The patient has been talking in full sentences. Wean off of BiPAP when feasible. After reviewing the chest x-ray to me this appears to be more of congestive heart failure however the ED physician felt that this was community-acquired pneumonia. Blood cultures are pending. Patient has no leukocytosis. No fever. No chills. No cough. The patient has an elevated D-dimer. V/Q scan when feasible. 11/10/20 patient is 70-year-old morbidly obese with BMI of 53 patient presented emergency department with a complaint 1 week increasing shortness of breath with exertion lower extremity swelling abdomen an along scrotal, patient has acute on chronic hypercarbic respiratory failure most likely patient has a multifactorial secondary to morbid obesity hypoventilation, sleep apnea, and suspect patient has congestive heart failure cardiac echo is pending, discussed with the pulmonology plan is to start the patient on noninvasive ventilator, patient is seen by welding machine operator helper gas suspect patient had right heart failure core pulmonale secondary to sleep apnea morbidly obese and most likely has a left heart failure cardiac echo is pending will continue to diurese the patient and monitor Is and Os and further recommendation to follow, will follow-up on cardiac echo and and plan accordingly. 11/11 today patient was briefly unresponsive was seen by welding machine operator helper gas and forest and conservation worker and found to have hypoglycemia as patient takes oral hypoglycemia agents and due to JAMILA and poor urine output the medications remains in the system resulting in hypoglycemia, now the medications are on hold, patient did response his blood sugar was 119, patient was given 2 ampules of D50, will let him eat adlib and monitor blood sugars every 2 hours, Purchasing And Fiscal Clerk is adjusting his home trilogy and patient has acute on chronic diastolic congestive heart failure and seen by welding machine operator helper gas and recommending to continue to diurese the patient, will conitnue to monitor and have PT/OT work with patient. 11/12 patient still quite hypoglycemic, checking blood sugar every 2 hours being treated with 2 ampules D50 every 2 hours, today patient appears more awake and communicating, seen by forest and conservation worker and welding machine operator helper gas and agreed volume overload secondary to hypoventilation as well as sleep apnea patient is being diuresed and forest and conservation worker is adjusting is trilogy, will continue to monitor and have PT OT work with the patient. 11/13 patient hypoglycemic has improved will stop D5 NS, he feels much better yesterday he was able to ambulate and sat on the chair, today he will work with physical therapy, patient also states his breathing has improved patient is being diuresed his swelling has improved but still persist along his groin area and lower extremity, DW pulmonology today will try to adjust his home CPAP, will encourage patient to participate in physical, patient will benefit going to rehab before going home. (2) Acute on chronic diastolic (congestive) heart failure: Code(s): I50.33 - Acute on chronic diastolic (congestive) heart failure Status: Acute Assessment and Plan: Patient is volume overloaded with exacerbation acute on chronic diastolic congestive heart failure patient is being diuresed (3) Community acquired pneumonia: Qualifiers: Laterality: right Lung location: lower lobe of lung Qualified Code(s): J18.9 - Pneumonia, unspecified organism Code(s): J18.9 - Pneumonia, unspecified organism Status: Acute Assessment and Plan: Patient started on azithromycin and Rocephin will monitor and repeat chest x-ray (4) Hypothyroidism: Code(s): E03.9 - Hypothyroidism, unspecified St
[2020-11-13 12:01] LABS: Glucose Point of Care 196 (65-105)
--- NOTE | 2020-11-13 12:18 | PM.PNPUL ---
Progress Note: A&P Assessment and Plan (1) Obesity hypoventilation syndrome: Code(s): E66.2 - Morbid (severe) obesity with alveolar hypoventilation Status: Acute Assessment and Plan: Patient with obesity hypoventilation syndrome, Enlarged RV with decreased function and normal LV function 65-70% with grade II diastolic dysfunction, mild TR with PASP 45. Patient with morbid obesity and acute on chronic hypercarbic respiratory failure from obesity with a blood gas of 7.30/47.6/55.4 on room air. Patient was initially treated with BiPAP but he could not tolerate the pressures and ripped the mask off overnight. Patient would benefit from noninvasive ventilation for his obesity hypoventilation syndrome to prevent further hospital admissions and morbidity from his hypercarbia. I have contacted respiratory team to initiate this process. 11/10 I discussed with the patient his obesity hypoventilation syndrome and he was willing to try noninvasive ventilation with an AVAPS mode. Settings that were most comfortable for him were rate of 14, tidal volume 500, EPAP 8, minimum inspiratory pressure 9, maximal inspiratory pressure 25, rise of 5 which is the slow S2 on our machine, inspiratory time of 1.2 seconds, FiO2 25% resulted in saturations of 96%. I will check a blood gas in the morning prior to removal of AVAPS NIV. Patient will need to lose weight in the future. 4/2 Wore hospital AVAPS last night with a respiratory rate of 14, tidal volume 500, EPAP 16, minimum inspiratory pressure 17 maximal inspiratory pressure 25 rise of 5, inspiratory time 1.2, 25%. Patient had desats throughout the night and required his oxygen increased to 40%. Patient had a blood gas at the end of the night on the settings with a pH of 7.26/68/56. Rapid response for lethargy that resolved spontaneously and ABG while hospital AVAPS was 7.27/74/195. Home ventilator set up today and patient placed on AVAPS-AE with a respiratory rate of 18, tidal volume 550, minimum EPAP 10, maximum EPAP 20, pressure support 5, pressure support max 25, maximum pressure 40, inspiratory time 1.2, with 8 L bleed in. Patient stated that these settings were comfortable and he will wear them tonight. Will check ABG in morning. 4/3 Unable to tolerate home vent mask last night and wore hospital AVAPS respiratory rate of 14, tidal volume 500, EPAP 16, minimum inspiratory pressure 17 maximal inspiratory pressure 25 rise of 5, inspiratory time 1.2, 60%. Tolerated OK. Will call DME and see if they can refit for mask today. Otherwise will change our AVAPS settings to RR 18 and TV 550. More awake today and On 4 L NC with sats 96%. 11/13 Wore [facility] AVAPS respiratory rate of 18, tidal volume 550, EPAP 16, minimum inspiratory pressure 17 maximal inspiratory pressure 25 rise of 5, inspiratory time 1.2, 60%. Tolerated OK. DME not available to refit mask, call tomorrow. daytime On 3 L NC with sats 92%. Will follow with you. (2) Community acquired pneumonia: Qualifiers: Laterality: right Lung location: lower lobe of lung Qualified Code(s): J18.9 - Pneumonia, unspecified organism Code(s): J18.9 - Pneumonia, unspecified organism Status: Acute Assessment and Plan: I have a low clinical suspicion for community-acquired pneumonia and will discontinue ceftriaxone and azithromycin after blood cultures are negative for 48 hours. Of note patient's SARS COVID 2 PCR test is negative. 11/11 Cultures negative and will DC antibiotics. (3) Fluid overload: Code(s): E87.70 - Fluid overload, unspecified Status: Acute Assessment and Plan: 11/10 Patient has fluid overload likely from cor pulmonale from his obesity hypoventilation syndrome resulting in generalized edema and acute renal failure. Edema and renal function have improved with Lasix 40 IV q.8. Hospitalist and bi specialist to aggressively diurese patient as tolerated by his cardiac and renal cysts in syste
--- NOTE | 2020-11-13 13:36 | P.PNNP_ITS ---
Progress Note: A&P Assessment and Plan (1) JAMILA (acute kidney injury): Code(s): N17.9 - Acute kidney failure, unspecified Status: Acute Assessment and Plan: * resolving * suspect due to worsening of his obesity hypoventilation syndrome (likely from cor pulmonale) and need for diuretic therapy * component of urinary retention playing a role -- carrizales placed by Urology due to penile/scrotal edema * renal ultrasound noted * creatinine better in spite of diuresis -- component of renal venous hypertension (being relieved with diuresis?) * follow repeat labs and UOP (2) Chronic kidney disease, stage 3: Code(s): N18.30 - Chronic kidney disease, stage 3 unspecified Status: Chronic Assessment and Plan: * baseline creatinine fluctuates ~ 1.3 - 2.0mg/dl since April 2020 - fluctuates between CKD stage 3A and 3B * probably due to HTN, DM complicated by neuropathy, obesity, vascular disease, and age * serologies pending (for further evaluation) * only has 300mg proteinuria (3) CHF (congestive heart failure): Qualifiers: Heart failure chronicity: unspecified Heart failure type: unspecified Qualified Code(s): I50.9 - Heart failure, unspecified Code(s): I50.9 - Heart failure, unspecified Status: Acute Assessment and Plan: * Cardiology following * more right sided - likely from pulmonary HTN/cor pulmonale * continue IV diuresis * follow I/Os * follow daily weights (4) Acute respiratory failure with hypoxia: Code(s): J96.01 - Acute respiratory failure with hypoxia Status: Acute Assessment and Plan: * related to #2 but has a component of NEREYDA/obesity hypoventilation syndrome * Pulmonary recommendations noted * follow respiratory status (5) Hypertension: Code(s): I10 - Essential (primary) hypertension Status: Chronic Assessment and Plan: * follow trend of hemodynamics * ongoing diuresis may help this as well * on losartan and carvedilol (6) Diabetes: Code(s): E11.9 - Type 2 diabetes mellitus without complications Status: Chronic Assessment and Plan: * follow accuchecks * on SSI Will continue to follow Subjective Date/time seen: 11/13/20 13:36 States he is doing better with regard to his respiratory status/breathing and admits that his edema/swelling is better as well but he still has alot of swelling still present in his groin and lower extremities; feels he has more energy and is motivated to work with PT/OT. Exam Narrative: Exam Narrative: General: WD/WN male in NAD Heart: normal S1 and S2; no rub Lungs: decreased breath sound at bases Abdomen: soft, nontender, nondistended, positive bowel sounds Extremities: no cyanosis or clubbing; 1 - 2+ edema with associated scrotal edema Skin: chronic stasis changes noted Objective Data Vital Signs Vital Signs: Vital Signs Temp Pulse Resp BP Pulse Ox 11/13/20 12:00 36.7 C 68 16 134/57 L 94 11/13/20 10:00 74 11/13/20 09:56 92 11/13/20 09:17 69 11/13/20 08:00 36.8 C 69 20 139/58 L 92 11/13/20 06:00 64 11/13/20 04:00 36.8 C 73 22 H 125/43 L 96 11/13/20 03:37 96 11/13/20 02:00 69 11/13/20 01:30 72 19 96 11/13/20 00:00 71 90 11/12/20 23:54 36.1 C L 71 20 150/59 H 90
--- NOTE | 2020-11-13 13:36 | PM.PNNEP ---
Progress Note: A&P Assessment and Plan (1) JAMILA (acute kidney injury): Code(s): N17.9 - Acute kidney failure, unspecified Status: Acute Assessment and Plan: resolving suspect due to worsening of his obesity hypoventilation syndrome (likely from cor pulmonale) and need for diuretic therapy component of urinary retention playing a role -- carrizales placed by Urology due to penile/scrotal edema renal ultrasound noted creatinine better in spite of diuresis -- component of renal venous hypertension (being relieved with diuresis?) follow repeat labs and UOP (2) Chronic kidney disease, stage 3: Code(s): N18.30 - Chronic kidney disease, stage 3 unspecified Status: Chronic Assessment and Plan: baseline creatinine fluctuates ~ 1.3 - 2.0mg/dl since April 2020 - fluctuates between CKD stage 3A and 3B probably due to HTN, DM complicated by neuropathy, obesity, vascular disease, and age serologies pending (for further evaluation) only has 300mg proteinuria (3) CHF (congestive heart failure): Qualifiers: Heart failure chronicity: unspecified Heart failure type: unspecified Qualified Code(s): I50.9 - Heart failure, unspecified Code(s): I50.9 - Heart failure, unspecified Status: Acute Assessment and Plan: Cardiology following more right sided - likely from pulmonary HTN/cor pulmonale continue IV diuresis follow I/Os follow daily weights (4) Acute respiratory failure with hypoxia: Code(s): J96.01 - Acute respiratory failure with hypoxia Status: Acute Assessment and Plan: related to #2 but has a component of NEREYDA/obesity hypoventilation syndrome Pulmonary recommendations noted follow respiratory status (5) Hypertension: Code(s): I10 - Essential (primary) hypertension Status: Chronic Assessment and Plan: follow trend of hemodynamics ongoing diuresis may help this as well on losartan and carvedilol (6) Diabetes: Code(s): E11.9 - Type 2 diabetes mellitus without complications Status: Chronic Assessment and Plan: follow accuchecks on SSI Will continue to follow Subjective Date/time seen: 11/13/20 13:36 States he is doing better with regard to his respiratory status/breathing and admits that his edema/swelling is better as well but he still has alot of swelling still present in his groin and lower extremities; feels he has more energy and is motivated to work with PT/OT. Exam Narrative: Exam Narrative: General: WD/WN male in NAD Heart: normal S1 and S2; no rub Lungs: decreased breath sound at bases Abdomen: soft, nontender, nondistended, positive bowel sounds Extremities: no cyanosis or clubbing; 1 - 2+ edema with associated scrotal edema Skin: chronic stasis changes noted Objective Data Vital Signs Vital Signs: Vital Signs Temp Pulse Resp BP Pulse Ox 11/13/20 12:00 36.7 C 68 16 134/57 L 94 11/13/20 10:00 74 11/13/20 09:56 92 11/13/20 09:17 69 11/13/20 08:00 36.8 C 69 20 139/58 L 92 11/13/20 06:00 64 11/13/20 04:00 36.8 C 73 22 H 125/43 L 96 11/13/20 03:37 96 11/13/20 02:00 69 11/13/20 01:30 72 19 96 11/13/20 00:00 71 90 11/12/20 23:54 36.1 C L 71 20 150/59 H 90 11/12/20 22:20 77 20 93 11/12/20 22:00 78 11/12/20 20:11 78 11/12/20 20:00 72 90 11/12/20 19:35 36.2 C L 71 20 107/70 90 11/12/20 18:00 71 11/12/20 16:00 36.2 C L 70 20 128/50 L 94 Intake/Output Intake/Output: Intake & Output 11/10/20 11/11/20 11/12/20 11/13/20 23:59 23:59 23:59 23:59 Intake Total 1830 1460 2080 1240 Output Total 550 4750 5700 4025 Balance 9171 -3971 -3620 -2785 Meds/Results Medications: Active Medications Generic Name Dose Route Start Last Admin Trade Name Freq PRN Reason Stop Dose Admin Albuterol 2 puff 11/09/20 14:24 Albuterol
[2020-11-13 14:13] LABS: Glucose Point of Care 227 (65-105)
--- NOTE | 2020-11-13 15:51 | PC.NURSE ---
This patient, Ben Farmer, was transferred to [ 344] on 11/13/20 at 1551. Personal belongings sent with patient. Report given to [Georgie ]. Appropriate documentation sent with patient.
[2020-11-13 17:07] LABS: Glucose Point of Care 279 (65-105)
[2020-11-13] MEDS: INSULIN ASPART (*BKC) 100 UNITS/ML SUB-Q ×2 (17:09→21:50)
[2020-11-13 20:41] LABS: Albumin 3.9 g/dL (3.8-4.8); Alpha 1 Globulin 0.4 g/dL (0.2-0.3); Alpha 2 Globulin 0.9 g/dL (0.5-0.9); Beta 1 Globulin 0.6 g/dL (0.4-0.6); Protein, Total 7.1 g/dL (6.1-8.1)
[2020-11-13 21:49] LABS: Glucose Point of Care 273 (65-105)
[2020-11-14] VITALS (15 sets, daily range): BP systolic 148–171; BP diastolic 52–62; PULSE 72–83; RESP 14–29; TEMP 36.2–36.5; O2SAT 91–98
[2020-11-14] MEDS: HEPARIN SODIUM 5,000 UNITS/ML VIAL 5000 UNITS SUB-Q ×3 (05:33→21:23)
[2020-11-14] MEDS: FUROSEMIDE INJ 40 MG/4 ML VIAL IV PUSH ×3 (05:35→21:17)
[2020-11-14] MEDS: LEVOTHYROXINE SODIUM 100 MCG TABLET PO (05:36)
[2020-11-14] MEDS: LEVOTHYROXINE SODIUM 75 MCG TABLET PO (05:36)
[2020-11-14 05:48] LABS: Hematocrit 39.1 % (42.0-52.0); Hemoglobin 12.1 g/dL (14.0-18.0); Mean Corpuscular HGB Conc 30.9 g/dl (32-36); Mean Corpuscular Hemoglobin 33.2 pg (26-34); Mean Corpuscular Volume 107.1 fl (80-100); Mean Platelet Volume 12.6 fl (7.4-10.4); Platelet Count Result 93 k/mm3 (150-375); Red Blood Count 3.65 M/mm3 (4.6-6.20); Red Cell Distribution Width 15.6 % (11.5-14.5)
[2020-11-14 06:10] LABS: Albumin Level 3.7 g/dL (3.5-5.1); Blood Urea Nitrogen 55 mg/dL (9-20); Calcium 8.4 mg/dL (8.4-10.2); Carbon Dioxide > 40 mmol/L (22-30); Chloride 96 mmol/L (98-107); Estimated CRCL calculation 78 ml/min; Estimated Glomerular Filt Rate 55; Glucose 181 mg/dL (75-110); Phosphorus 2.8 mg/dL (2.5-4.5); Sodium 141 mmol/L (137-145)
[2020-11-14 07:36] LABS: Glucose Point of Care 156 (65-105)
--- NOTE | 2020-11-14 08:17 | PM.PNPUL ---
Progress Note: A&P Assessment and Plan (1) Obesity hypoventilation syndrome: Code(s): E66.2 - Morbid (severe) obesity with alveolar hypoventilation Status: Acute Assessment and Plan: Patient with obesity hypoventilation syndrome, Enlarged RV with decreased function and normal LV function 65-70% with grade II diastolic dysfunction, mild TR with PASP 45. Patient with morbid obesity and acute on chronic hypercarbic respiratory failure from obesity with a blood gas of 7.30/47.6/55.4 on room air. Patient was initially treated with BiPAP but he could not tolerate the pressures and ripped the mask off overnight. Patient would benefit from noninvasive ventilation for his obesity hypoventilation syndrome to prevent further hospital admissions and morbidity from his hypercarbia. I have contacted respiratory team to initiate this process. 11/10 I discussed with the patient his obesity hypoventilation syndrome and he was willing to try noninvasive ventilation with an AVAPS mode. Settings that were most comfortable for him were rate of 14, tidal volume 500, EPAP 8, minimum inspiratory pressure 9, maximal inspiratory pressure 25, rise of 5 which is the slow S2 on our machine, inspiratory time of 1.2 seconds, FiO2 25% resulted in saturations of 96%. I will check a blood gas in the morning prior to removal of AVAPS NIV. Patient will need to lose weight in the future. 4/2 Wore hospital AVAPS last night with a respiratory rate of 14, tidal volume 500, EPAP 16, minimum inspiratory pressure 17 maximal inspiratory pressure 25 rise of 5, inspiratory time 1.2, 25%. Patient had desats throughout the night and required his oxygen increased to 40%. Patient had a blood gas at the end of the night on the settings with a pH of 7.26/68/56. Rapid response for lethargy that resolved spontaneously and ABG while hospital AVAPS was 7.27/74/195. Home ventilator set up today and patient placed on AVAPS-AE with a respiratory rate of 18, tidal volume 550, minimum EPAP 10, maximum EPAP 20, pressure support 5, pressure support max 25, maximum pressure 40, inspiratory time 1.2, with 8 L bleed in. Patient stated that these settings were comfortable and he will wear them tonight. Will check ABG in morning. 4/3 Unable to tolerate home vent mask last night and wore hospital AVAPS respiratory rate of 14, tidal volume 500, EPAP 16, minimum inspiratory pressure 17 maximal inspiratory pressure 25 rise of 5, inspiratory time 1.2, 60%. Tolerated OK. Will call DME and see if they can refit for mask today. Otherwise will change our AVAPS settings to RR 18 and TV 550. More awake today and On 4 L NC with sats 96%. 4/4 Wore hospital AVAPS respiratory rate of 18, tidal volume 550, EPAP 16, minimum inspiratory pressure 17 maximal inspiratory pressure 25 rise of 5, inspiratory time 1.2, 60%. Tolerated OK. DME not available to refit mask, call tomorrow. daytime On 3 L NC with sats 92%. 4/5 Wore hospital AVAPS and changed to extra large mask for comfort, respiratory rate of 18, tidal volume 550, EPAP 16, minimum inspiratory pressure 17 maximal inspiratory pressure 25 rise of 5, inspiratory time 1.2, 40%. Tolerated OK. On 4 L NC with sats 97%, I decreased to 1 L and sats 93%. Will call DME to refit for larger more comfortable mask today. ABG on home machine in morning. Will follow with you. (2) Community acquired pneumonia: Qualifiers: Laterality: right Lung location: lower lobe of lung Qualified Code(s): J18.9 - Pneumonia, unspecified organism Code(s): J18.9 - Pneumonia, unspecified organism Status: Acute Assessment and Plan: I have a low clinical suspicion for community-acquired pneumonia and will discontinue ceftriaxone and azithromycin after blood cultures are negative for 48 hours. Of note patient's SARS COVID 2 PCR test is negative. 4/2 Cultures negative and will DC antibiotics. (3) Fluid overload: Code(s): E87.70 - Fluid overload, u
--- NOTE | 2020-11-14 08:52 | PCRCNOTE ---
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
[2020-11-14] MEDS: LOSARTAN POTASSIUM 25 MG TABLET PO (08:55)
[2020-11-14] MEDS: carvediloL 3.125 MG TABLET PO ×2 (08:55→21:17)
[2020-11-14] MEDS: ASPIRIN 81 MG CHEWABLE TABLET PO (08:55)
[2020-11-14] MEDS: ATORVASTATIN 20 MG TABLET PO (08:55)
[2020-11-14] MEDS: FINASTERIDE 5 MG TABLET PO (08:56)
[2020-11-14] MEDS: TAMSULOSIN HCL 0.4 MG CAPSULE PO (08:56)
--- NOTE | 2020-11-14 10:38 | P.PNNP_ITS ---
Progress Note: A&P Assessment and Plan (1) JAMILA (acute kidney injury): Code(s): N17.9 - Acute kidney failure, unspecified Status: Acute Assessment and Plan: * He has JAMILA due Two multiple issues, including renal venous hypertension, urinary retention,. * renal ultrasound showed normal left kidney but they did not see a right kidney. * his creatinine is down to 1.3. * suspect due to worsening of his obesity hypoventilation syndrome (likely from cor pulmonale) and need for diuretic therapy * component of urinary retention playing a role -- carrizales placed by Urology due to penile/scrotal edema * his creatinine is improving. Continue current diuretics. (2) Chronic kidney disease, stage 3: Code(s): N18.30 - Chronic kidney disease, stage 3 unspecified Status: Chronic Assessment and Plan: * baseline creatinine fluctuates ~ 1.3 - 2.0mg/dl since April 2020 - fluctuates between CKD stage 3A and 3B * probably due to HTN, DM complicated by neuropathy, obesity, vascular disease, and age * serologies pending (3) CHF (congestive heart failure): Qualifiers: Heart failure chronicity: unspecified Heart failure type: unspecified Qualified Code(s): I50.9 - Heart failure, unspecified Code(s): I50.9 - Heart failure, unspecified Status: Acute Assessment and Plan: * Cardiology following * more right sided - likely from pulmonary HTN/cor pulmonale * He is using a BiPAP machine. He probably has sleep apnea. He was not on a CPAP machine before. * continue IV diuresis * follow I/Os * follow daily weights (4) Acute respiratory failure with hypoxia: Code(s): J96.01 - Acute respiratory failure with hypoxia Status: Acute Assessment and Plan: * related to #2 but has a component of NEREYDA/obesity hypoventilation syndrome * Pulmonary recommendations noted * follow respiratory status (5) Hypertension: Code(s): I10 - Essential (primary) hypertension Status: Chronic Assessment and Plan: * His blood pressure is running from 120-170. * on losartan and carvedilol * He is also getting diuretics. Will follow for trend (6) Diabetes: Code(s): E11.9 - Type 2 diabetes mellitus without complications Status: Chronic Assessment and Plan: * follow accuchecks * on SSI Subjective Date/time seen: 11/14/20 10:38 Interval history: Ben is a very pleasant 70-year-old with acute kidney injury. His creatinine is better, down to almost normal. He slept okay last night. He has a pretty good appetite. Exam Narrative: Exam Narrative: General: WD/WN male in NAD Heart: normal S1 and S2; no rub Or gallop Lungs: decreased breath sound at bases Abdomen: soft, nontender, nondistended, positive bowel sounds Extremities: 1 - 2+ edema with associated scrotal edema Skin: chronic stasis changes noted Objective Data Vital Signs Vital Signs: Vital Signs - 24 hr 11/13/20 12:00 11/13/20 14:00 11/13/20 20:00 Temperature 36.7 C Pulse Rate 68 72 79 Respiratory Rate 16 Blood Pressure 134/57 L Pulse Oximetry 94 11/13/20 21:01 11/13/20 21:30 11/13/20 21:31 Temperature 36.1 C L Pulse Rate 78 76 Respiratory Rate 20 Blood Pressure 179/65 H Pulse Oximetry 97 97
--- NOTE | 2020-11-14 10:38 | PM.PNNEP ---
Progress Note: A&P Assessment and Plan (1) JAMILA (acute kidney injury): Code(s): N17.9 - Acute kidney failure, unspecified Status: Acute Assessment and Plan: He has JAMILA due Two multiple issues, including renal venous hypertension, urinary retention,. renal ultrasound showed normal left kidney but they did not see a right kidney. his creatinine is down to 1.3. suspect due to worsening of his obesity hypoventilation syndrome (likely from cor pulmonale) and need for diuretic therapy component of urinary retention playing a role -- carrizales placed by Urology due to penile/scrotal edema his creatinine is improving. Continue current diuretics. (2) Chronic kidney disease, stage 3: Code(s): N18.30 - Chronic kidney disease, stage 3 unspecified Status: Chronic Assessment and Plan: baseline creatinine fluctuates ~ 1.3 - 2.0mg/dl since April 2020 - fluctuates between CKD stage 3A and 3B probably due to HTN, DM complicated by neuropathy, obesity, vascular disease, and age serologies pending (3) CHF (congestive heart failure): Qualifiers: Heart failure chronicity: unspecified Heart failure type: unspecified Qualified Code(s): I50.9 - Heart failure, unspecified Code(s): I50.9 - Heart failure, unspecified Status: Acute Assessment and Plan: Cardiology following more right sided - likely from pulmonary HTN/cor pulmonale He is using a BiPAP machine. He probably has sleep apnea. He was not on a CPAP machine before. continue IV diuresis follow I/Os follow daily weights (4) Acute respiratory failure with hypoxia: Code(s): J96.01 - Acute respiratory failure with hypoxia Status: Acute Assessment and Plan: related to #2 but has a component of NEREYDA/obesity hypoventilation syndrome Pulmonary recommendations noted follow respiratory status (5) Hypertension: Code(s): I10 - Essential (primary) hypertension Status: Chronic Assessment and Plan: His blood pressure is running from 120-170. on losartan and carvedilol He is also getting diuretics. Will follow for trend (6) Diabetes: Code(s): E11.9 - Type 2 diabetes mellitus without complications Status: Chronic Assessment and Plan: follow accuchecks on SSI Subjective Date/time seen: 11/14/20 10:38 Interval history: Ben is a very pleasant 70-year-old with acute kidney injury. His creatinine is better, down to almost normal. He slept okay last night. He has a pretty good appetite. Exam Narrative: Exam Narrative: General: WD/WN male in NAD Heart: normal S1 and S2; no rub Or gallop Lungs: decreased breath sound at bases Abdomen: soft, nontender, nondistended, positive bowel sounds Extremities: 1 - 2+ edema with associated scrotal edema Skin: chronic stasis changes noted Objective Data Vital Signs Vital Signs: Vital Signs - 24 hr 11/13/20 12:00 11/13/20 14:00 11/13/20 20:00 Temperature 36.7 C Pulse Rate 68 72 79 Respiratory Rate 16 Blood Pressure 134/57 L Pulse Oximetry 94 11/13/20 21:01 11/13/20 21:30 11/13/20 21:31 Temperature 36.1 C L Pulse Rate 78 76 Respiratory Rate 20 Blood Pressure 179/65 H Pulse Oximetry 97 97 11/13/20 22:16 11/13/20 23:30 11/14/20 00:00 Temperature Pulse Rate 74 74 Respiratory Rate 18 Blood Pressure 154/63 H Pulse Oximetry 98 11/14/20 02:30 11/14/20 04:00 11/14/20 05:17 Temperature 36.5 C Pulse Rate 73 72 72 Respiratory Rate 22 H 20 Blood Pressure 171/52 H Pulse Oximetry 95 98 11/14/20 08:00 11/14/20 08:55 11/14/20 09:05 Temperature Pulse Rate 74 74 Respiratory Rate Blood Pressure Pulse Oximetry 97 Intake/Output Intake/Output: Intake & Output 11/11/20 11/12/20 11/13/20 11/14/20 23:59 23:59 23:59 23:59 Intake Total 1460 2080 1680 540 Output Total 4070 6620 8363 3220 Scott
[2020-11-14 11:50] LABS: Glucose Point of Care 151 (65-105)
--- NOTE | 2020-11-14 12:43 | PM.IMPN ---
Progress Note: A&P Assessment and Plan (1) Acute respiratory failure with hypoxia: Code(s): J96.01 - Acute respiratory failure with hypoxia Status: Acute Assessment and Plan: 11/14/20 12:43 The patient is currently on a BiPAP machine and appears to be tolerating it well. The patient has been talking in full sentences. Wean off of BiPAP when feasible. After reviewing the chest x-ray to me this appears to be more of congestive heart failure however the ED physician felt that this was community-acquired pneumonia. Blood cultures are pending. Patient has no leukocytosis. No fever. No chills. No cough. The patient has an elevated D-dimer. V/Q scan when feasible. 11/10/20 patient is 70-year-old morbidly obese with BMI of 53 patient presented emergency department with a complaint 1 week increasing shortness of breath with exertion lower extremity swelling abdomen an along scrotal, patient has acute on chronic hypercarbic respiratory failure most likely patient has a multifactorial secondary to morbid obesity hypoventilation, sleep apnea, and suspect patient has congestive heart failure cardiac echo is pending, discussed with the pulmonology plan is to start the patient on noninvasive ventilator, patient is seen by squad leader suspect patient had right heart failure core pulmonale secondary to sleep apnea morbidly obese and most likely has a left heart failure cardiac echo is pending will continue to diurese the patient and monitor Is and Os and further recommendation to follow, will follow-up on cardiac echo and and plan accordingly. 11/11 today patient was briefly unresponsive was seen by squad leader and fumigator and sterilizer and found to have hypoglycemia as patient takes oral hypoglycemia agents and due to JAMILA and poor urine output the medications remains in the system resulting in hypoglycemia, now the medications are on hold, patient did response his blood sugar was 119, patient was given 2 ampules of D50, will let him eat adlib and monitor blood sugars every 2 hours, Water Valve Mechanic is adjusting his home trilogy and patient has acute on chronic diastolic congestive heart failure and seen by squad leader and recommending to continue to diurese the patient, will conitnue to monitor and have PT/OT work with patient. 11/12 patient still quite hypoglycemic, checking blood sugar every 2 hours being treated with 2 ampules D50 every 2 hours, today patient appears more awake and communicating, seen by fumigator and sterilizer and squad leader and agreed volume overload secondary to hypoventilation as well as sleep apnea patient is being diuresed and fumigator and sterilizer is adjusting is trilogy, will continue to monitor and have PT OT work with the patient. 11/13 patient hypoglycemic has improved will stop D5 NS, he feels much better yesterday he was able to ambulate and sat on the chair, today he will work with physical therapy, patient also states his breathing has improved patient is being diuresed his swelling has improved but still persist along his groin area and lower extremity, DW pulmonology today will try to adjust his home CPAP, will encourage patient to participate in physical, patient will benefit going to rehab before going home. 11/14 Patient hypoglycemia has resolved, we are holding oral hypoglycemic medications, and monitoring with low sliding scale, patient was seen his by fumigator and sterilizer and patient is able tolerated his BIPA with large mask, patient is seen by cardiolgoist and he is being diuresed and his BUN and creatinine are improving, once creatinine is stable,Patient is seen by Dr. Rojas, stemhole borer and topper, may resume metformin, patient stats he is feeling much better and not as short of breath. patient is working with PT/OT will continue and benefit going home with PT and home health. (2) Acute on chronic diastolic (congestive) heart failure: Code(s): I50.33 - Acute on chronic diastolic (congestive) heart failure Status: Acute Assessment and P
[2020-11-14 16:48] LABS: Glucose Point of Care 237 (65-105)
[2020-11-14] MEDS: INSULIN ASPART (*BKC) 100 UNITS/ML SUB-Q (16:53)
--- NOTE | 2020-11-14 17:19 | PM.PNCARD ---
Progress Note: A&P Assessment and Plan (1) Elevated troponin: Code(s): R77.8 - Other specified abnormalities of plasma proteins Status: Acute Assessment and Plan: non CA troponin elevation.This is not related to acute plaque rupture. Most likely secondary to heart failure and renal failure. Continue to check cardiac enzymes until peak. (2) Hypertension associated with diabetes: Code(s): E11.59 - Type 2 diabetes mellitus with other circulatory complications; I15.2 - Hypertension secondary to endocrine disorders Status: Acute Assessment and Plan: Elevated. Losartan resumed. Renal function stable, improving. Monitor closely. Up titrate as tolerated. (3) Hyperlipidemia associated with type 2 diabetes mellitus: Code(s): E11.69 - Type 2 diabetes mellitus with other specified complication; E78.5 - Hyperlipidemia, unspecified Status: Acute Assessment and Plan: Continue statin therapy. Patient has a history of carotid endarterectomy and should be on a statin regardless. Continue atorvastatin 20 mg daily (4) Morbid obesity with BMI of 50.0-59.9, adult: Code(s): E66.01 - Morbid (severe) obesity due to excess calories; Z68.43 - Body mass index [BMI] 50.0-59.9, adult Status: Acute Assessment and Plan: Lifestyle modification counseling. (5) CHF (congestive heart failure): Qualifiers: Heart failure chronicity: unspecified Heart failure type: unspecified Qualified Code(s): I50.9 - Heart failure, unspecified Code(s): I50.9 - Heart failure, unspecified Status: Acute Assessment and Plan: Predominantly right-sided heart failure and diastolic heart failure secondary to underlying untreated severe sleep apnea, obesity hypoventilation and body habitus and HTN. Continue IV diuretics, responding well thus far. Nearly -4.6L past 24 hours. (6) Acute respiratory failure with hypoxia: Code(s): J96.01 - Acute respiratory failure with hypoxia Status: Acute Assessment and Plan: Strongly encourage treatment of sleep apnea. Extensively discussed with regards to risk for decompensated heart failure, declining quality of life at a minimum. Patient verbalized understanding. Son at bedside also concurs. Patient with obesity hypoventilation syndrome Subjective Date/time seen: Date of service: 11/14/20 17:19 Follow-up for CHF Interval history: Follow-up visit in this 70-year-old man with: Profound volume overload, this is the result of morbid obesity/hypoventilation sleep apnea syndrome and cor pulmonale. No other evidence or reason to think that he has congestive heart failure per se. Modest troponin elevation is not in indicative of an acute coronary event and I do not have clinical explanation as to why it was sampled in the 1st place. feeling better. Had difficulty with BiPAP last night. Willing to try again with a larger mask. Denies shortness of breath, lying flat bed. No chest pain. No new issues overnight. Very good urine output with Branch catheter. telemetry unremarkable. Review of Systems Review of Systems: All systems reviewed & are unremarkable except as noted in HPI and below Constitutional: Constitutional: Reports as per HPI, Reports no additional constitutional complaints and Reports fatigue Eyes: Eyes: Reports as per HPI and Reports no additional eye complaints ENT: Reports system reviewed and no additional complaints, except as documented and Reports as per HPI Cardiovascular: Cardiovascular: Reports as per HPI, Reports no additional cardiovascular complaints, Denies chest pain, Reports leg edema and Denies palpitations Comments: Scrotal edema Respiratory: Respiratory: Reports as per HPI, Reports no additional respiratory complaints and Reports dyspnea on exertion Gastrointestinal: Gastrointestinal: Reports as per HPI, Reports no additional gastrointestinal complaints, Den
[2020-11-14 21:26] LABS: Glucose Point of Care 221 (65-105)
[2020-11-15] VITALS (10 sets, daily range): BP systolic 132–148; BP diastolic 58–68; PULSE 70–82; RESP 18–20; TEMP 35.8–36.7; O2SAT 92–100
[2020-11-15 06:03] LABS: Hematocrit 38.8 % (42.0-52.0); Hemoglobin 11.9 g/dL (14.0-18.0); Mean Corpuscular HGB Conc 30.7 g/dl (32-36); Mean Corpuscular Hemoglobin 32.4 pg (26-34); Mean Corpuscular Volume 105.7 fl (80-100); Mean Platelet Volume 12.3 fl (7.4-10.4); Platelet Count Result 93 k/mm3 (150-375); Red Blood Count 3.67 M/mm3 (4.6-6.20)
[2020-11-15 06:26] LABS: Blood Urea Nitrogen 47 mg/dL (9-20); Calcium 8.3 mg/dL (8.4-10.2); Carbon Dioxide > 40 mmol/L (22-30); Chloride 93 mmol/L (98-107); Estimated CRCL calculation 99 ml/min; Estimated Glomerular Filt Rate > 60; Glucose 169 mg/dL (75-110); Potassium 3.9 mmol/L (3.4-5.0); Sodium 142 mmol/L (137-145)
[2020-11-15] MEDS: FUROSEMIDE INJ 40 MG/4 ML VIAL IV PUSH ×3 (06:37→21:01)
[2020-11-15] MEDS: LEVOTHYROXINE SODIUM 75 MCG TABLET PO (06:37)
[2020-11-15] MEDS: HEPARIN SODIUM 5,000 UNITS/ML VIAL 5000 UNITS SUB-Q ×3 (06:37→21:43)
[2020-11-15] MEDS: LEVOTHYROXINE SODIUM 100 MCG TABLET PO (06:37)
--- NOTE | 2020-11-15 06:50 | WPDUROPN2 ---
Progress Note: A&P Assessment and Plan (1) BPH (benign prostatic hyperplasia): Code(s): N40.0 - Benign prostatic hyperplasia without lower urinary tract symptoms Status: Acute Assessment and Plan: Start Flomax and Finasteride - should remain on both indefinately. (2) Retention of urine: Code(s): R33.9 - Retention of urine, unspecified Status: Acute Assessment and Plan: Difficult carrizales catheter placement d/t severe scrotal and penile edema. A 16fr straight catheter was placed sucessfully, betadine swabs used prior to insertion, 550cc of clear yellow urine on return. Carrizales should remain for 7-10 days then a voiding trial can be done. Difficulty with urination will continue d/t BPH versus severe penile edema. (3) Kidney failure: Qualifiers: Acute renal failure type: unspecified Renal failure chronicity: acute Qualified Code(s): N17.9 - Acute kidney failure, unspecified Code(s): N19 - Unspecified kidney failure Status: Acute Assessment and Plan: Improved (4) Scrotal edema: Code(s): N50.89 - Other specified disorders of the male genital organs Status: Acute Assessment and Plan: Should resolve with diuresis Elevate Scrotum with rolled towel Subjective Subjective Date/Time Seen: 11/15/20 06:50 Tolerating catheter Review of Systems Cardiovascular: Cardiovascular: Denies chest pain, Denies lightheadedness, Denies palpitations and Denies dyspnea Respiratory: Respiratory: Denies dyspnea Gastrointestinal: Gastrointestinal: Denies diarrhea, Denies nausea and Denies vomiting Genitourinary: Genitourinary: Denies hematuria and Denies dysuria Endocrine: Endocrine: Denies palpitations Exam Const: General: no acute distress Resp: Effort & Inspection: normal respiratory effort, labored and respiratory distress Cardio: Rate: regular rate GI: Inspection: non-distended Auscultation: normal bowel sounds : Penis: Yes uncircumcised and Yes edematous Meatus: other (unable to visualize d/t edema) Scrotum: scrotal swelling (tender on exam, severe) bilateral Testes: other (unable to palpate) Urinary Catheter: Urinary Catheter: patent and draining and urine clear Extrem: General: edema bilateral Objective Data Vital Signs Vital Signs: Vital Signs - 24 hr 11/14/20 08:00 11/14/20 08:55 11/14/20 09:05 Temperature Pulse Rate 74 74 Respiratory Rate Blood Pressure Pulse Oximetry 97 11/14/20 10:00 11/14/20 12:00 11/14/20 14:10 Temperature 97.4 F L Pulse Rate 75 75 75 Respiratory Rate 18 18 Blood Pressure 151/62 H Pulse Oximetry 93 92 11/14/20 16:00 11/14/20 18:49 11/14/20 20:49 Temperature 97.2 F L Pulse Rate 82 83 Respiratory Rate 29 H 14 Blood Pressure 148/62 H Pulse Oximetry 91 11/14/20 21:17 11/14/20 21:20 11/15/20 01:23 Temperature Pulse Rate 76 76 Respiratory Rate 18 Blood Pressure Pulse Oximetry 92 94 11/15/20 06:47 Temperature 96.4 F L Pulse Rate 82 Respiratory Rate 18 Blood Pressure 148/62 H Pulse Oximetry 96 Intake/Output Intake/Output: Intake & Output 11/12/20 11/13/20 11/14/20 11/15/20 23:59 23:59 23:59 23:59 Intake Total 2080 1680 1270 350 Output Total 5700 6375 5700 3350 [facility] [phone] Meds/Results Medications: Active Medications Generic Name Dose Route Start Last Admin Trade Name Freq PRN Reason Stop Dose Admin Albuterol 2 puff 11/09/20 14:24 Albuterol Sulfate (*Sp) Aerosol 1 Puff INHALATION Q6HRT PRN Shortness Of Breath Aspirin 81 mg 11/10/20 08:00 11/14/20 08:55 Aspirin 81 Mg Chewable Tablet PO 81 mg DAILY@0800 [facility] Administration Atorvastatin Calcium 20 mg 11/10/20 09:00 11/14/20 08:55 Atorvastatin 20 Mg Tablet PO 20 mg DAILY RADHA Administration Carvedilol 3.125 mg 11/10/20 21:00 11/14/20 21:17 Carvedilol 3.125 Mg Tablet PO 3.125 mg Q12HR RADHA Administra
[2020-11-15] MEDS: LOSARTAN POTASSIUM 25 MG TABLET PO (08:53)
[2020-11-15] MEDS: TAMSULOSIN HCL 0.4 MG CAPSULE PO (08:53)
[2020-11-15] MEDS: ASPIRIN 81 MG CHEWABLE TABLET PO (08:53)
[2020-11-15] MEDS: ATORVASTATIN 20 MG TABLET PO (08:53)
[2020-11-15] MEDS: FINASTERIDE 5 MG TABLET PO (08:53)
[2020-11-15] MEDS: carvediloL 3.125 MG TABLET PO ×2 (08:54→20:55)
[2020-11-15] MEDS: INSULIN ASPART (*BKC) 100 UNITS/ML SUB-Q ×2 (08:57→17:30)
--- NOTE | 2020-11-15 09:06 | PM.PNPUL ---
Progress Note: A&P Assessment and Plan (1) Obesity hypoventilation syndrome: Code(s): E66.2 - Morbid (severe) obesity with alveolar hypoventilation Status: Acute Assessment and Plan: Patient with obesity hypoventilation syndrome, Enlarged RV with decreased function and normal LV function 65-70% with grade II diastolic dysfunction, mild TR with PASP 45. Patient with morbid obesity and acute on chronic hypercarbic respiratory failure from obesity with a blood gas of 7.30/47.6/55.4 on room air. Patient was initially treated with BiPAP but he could not tolerate the pressures and ripped the mask off overnight. Patient would benefit from noninvasive ventilation for his obesity hypoventilation syndrome to prevent further hospital admissions and morbidity from his hypercarbia. I have contacted respiratory team to initiate this process. 11/10 I discussed with the patient his obesity hypoventilation syndrome and he was willing to try noninvasive ventilation with an AVAPS mode. Settings that were most comfortable for him were rate of 14, tidal volume 500, EPAP 8, minimum inspiratory pressure 9, maximal inspiratory pressure 25, rise of 5 which is the slow S2 on our machine, inspiratory time of 1.2 seconds, FiO2 25% resulted in saturations of 96%. I will check a blood gas in the morning prior to removal of AVAPS NIV. Patient will need to lose weight in the future. 4/2 Wore hospital AVAPS last night with a respiratory rate of 14, tidal volume 500, EPAP 16, minimum inspiratory pressure 17 maximal inspiratory pressure 25 rise of 5, inspiratory time 1.2, 25%. Patient had desats throughout the night and required his oxygen increased to 40%. Patient had a blood gas at the end of the night on the settings with a pH of 7.26/68/56. Rapid response for lethargy that resolved spontaneously and ABG while hospital AVAPS was 7.27/74/195. Home ventilator set up today and patient placed on AVAPS-AE with a respiratory rate of 18, tidal volume 550, minimum EPAP 10, maximum EPAP 20, pressure support 5, pressure support max 25, maximum pressure 40, inspiratory time 1.2, with 8 L bleed in. Patient stated that these settings were comfortable and he will wear them tonight. Will check ABG in morning. 4/3 Unable to tolerate home vent mask last night and wore hospital AVAPS respiratory rate of 14, tidal volume 500, EPAP 16, minimum inspiratory pressure 17 maximal inspiratory pressure 25 rise of 5, inspiratory time 1.2, 60%. Tolerated OK. Will call DME and see if they can refit for mask today. Otherwise will change our AVAPS settings to RR 18 and TV 550. More awake today and On 4 L NC with sats 96%. 4/ Wore hospital AVAPS respiratory rate of 18, tidal volume 550, EPAP 16, minimum inspiratory pressure 17 maximal inspiratory pressure 25 rise of 5, inspiratory time 1.2, 60%. Tolerated OK. DME not available to refit mask, call tomorrow. daytime On 3 L NC with sats 92%. 4/5 Wore hospital AVAPS and changed to extra large mask for comfort, respiratory rate of 18, tidal volume 550, EPAP 16, minimum inspiratory pressure 17 maximal inspiratory pressure 25 rise of 5, inspiratory time 1.2, 40%. Tolerated OK. On 4 L NC with sats 97%, I decreased to 1 L and sats 93%. Will call DME to refit for larger more comfortable mask today but they can't come to hospital until 11/15. 4/6 Wore [facility] AVAPS extra large mask for comfort, respiratory rate of 18, tidal volume 550, EPAP 16, minimum inspiratory pressure 17 maximal inspiratory pressure 25 rise of 5, inspiratory time 1.2, 40%, sats 94%. Tolerating mask a little better each day. On 4 L NC with sats 93%. Refit for home maskl later today and then home machine overnight with apnea link on 6 L and ABG in morning. Will follow with you. (2) Community acquired pneumonia: Qualifiers: Laterality: right Lung location: lower lobe of lung Qualified Code(s): J18.9 - Pneumonia, unspecified organism Code(s): J18.9 - Pneumonia
[2020-11-15 09:10] LABS: Glucose Point of Care 202 (65-105)
[2020-11-15 12:12] LABS: Glucose Point of Care 200 (65-105)
--- NOTE | 2020-11-15 14:15 | PM.IMPN ---
Progress Note: A&P Assessment and Plan (1) Acute respiratory failure with hypoxia: Code(s): J96.01 - Acute respiratory failure with hypoxia Status: Acute Assessment and Plan: 11/15/20 14:15 The patient is currently on a BiPAP machine and appears to be tolerating it well. The patient has been talking in full sentences. Wean off of BiPAP when feasible. After reviewing the chest x-ray to me this appears to be more of congestive heart failure however the ED physician felt that this was community-acquired pneumonia. Blood cultures are pending. Patient has no leukocytosis. No fever. No chills. No cough. The patient has an elevated D-dimer. V/Q scan when feasible. 11/10/20 patient is 70-year-old morbidly obese with BMI of 53 patient presented emergency department with a complaint 1 week increasing shortness of breath with exertion lower extremity swelling abdomen an along scrotal, patient has acute on chronic hypercarbic respiratory failure most likely patient has a multifactorial secondary to morbid obesity hypoventilation, sleep apnea, and suspect patient has congestive heart failure cardiac echo is pending, discussed with the pulmonology plan is to start the patient on noninvasive ventilator, patient is seen by supervisor roving department suspect patient had right heart failure core pulmonale secondary to sleep apnea morbidly obese and most likely has a left heart failure cardiac echo is pending will continue to diurese the patient and monitor Is and Os and further recommendation to follow, will follow-up on cardiac echo and and plan accordingly. 11/11 today patient was briefly unresponsive was seen by supervisor roving department and assistant boiler operator and found to have hypoglycemia as patient takes oral hypoglycemia agents and due to JAMILA and poor urine output the medications remains in the system resulting in hypoglycemia, now the medications are on hold, patient did response his blood sugar was 119, patient was given 2 ampules of D50, will let him eat adlib and monitor blood sugars every 2 hours, Vmware Consultant is adjusting his home trilogy and patient has acute on chronic diastolic congestive heart failure and seen by supervisor roving department and recommending to continue to diurese the patient, will conitnue to monitor and have PT/OT work with patient. 11/12 patient still quite hypoglycemic, checking blood sugar every 2 hours being treated with 2 ampules D50 every 2 hours, today patient appears more awake and communicating, seen by assistant boiler operator and supervisor roving department and agreed volume overload secondary to hypoventilation as well as sleep apnea patient is being diuresed and assistant boiler operator is adjusting is trilogy, will continue to monitor and have PT OT work with the patient. 11/13 patient hypoglycemic has improved will stop D5 NS, he feels much better yesterday he was able to ambulate and sat on the chair, today he will work with physical therapy, patient also states his breathing has improved patient is being diuresed his swelling has improved but still persist along his groin area and lower extremity, DW pulmonology today will try to adjust his home CPAP, will encourage patient to participate in physical, patient will benefit going to rehab before going home. 11/14 Patient hypoglycemia has resolved, we are holding oral hypoglycemic medications, and monitoring with low sliding scale, patient was seen his by assistant boiler operator and patient is able tolerated his BIPA with large mask, patient is seen by cardiolgoist and he is being diuresed and his BUN and creatinine are improving, once creatinine is stable,Patient is seen by Dr. Rojas, glaze handler, may resume metformin, patient stats he is feeling much better and not as short of breath. patient is working with PT/OT will continue and benefit going home with PT and home health. 11/15 patient was able to wear larger mask last night and felt comfortable seen by pulmonology and will order large mask from home BiPAP machine, patient hypoglycemia has resolved we
[2020-11-15 17:19] LABS: Glucose Point of Care 273 (65-105)
[2020-11-15] MEDS: ACETAMINOPHEN 325 MG TABLET 650 MG PO (17:31)
[2020-11-15 21:27] LABS: Glucose Point of Care 306 (65-105)
[2020-11-15] MEDS: metFORMIN HCL XR 500 MG TAB.SR.24H 1000 MG PO (21:41)
[2020-11-15] MEDS: GLIMEPIRIDE 2 MG TABLET 4 MG PO (21:41)
[2020-11-16] VITALS (10 sets, daily range): BP systolic 119–165; BP diastolic 46–93; PULSE 71–79; RESP 16–20; TEMP 36.1–36.8; O2SAT 84–100
[2020-11-16 05:16] LABS: Alveolar/Arterial O2 Gradient 108.8 mmHg; Base Excess ABG 21.5 mEq/l (+/-2.0); Fractional Inspired Oxygen 36 %; HCO3 ABG 48.7 mEq/l (22.0-26.0); Oxygen Content ABG 17.3 %vol (16.0-22.0); Oxygen Saturation ABG 95.1 % (95.0-100.0); Oxyhemoglobin 93.6 % THb (90.0-100.0); PO2 ABG 72.4 mmHg (80.0-100.0); PO2 FiO2 Ratio Arterial Blood 2.01 %; Total Hemoglobin 13.1 g/dL (12.0-18.0); pH ABG 7.492 (7.350-7.450)
[2020-11-16 05:34] LABS: PCO2 ABG 65.1 mmHg (35.0-45.0)
[2020-11-16 05:35] LABS: Device NASAL CANNULA; Modified Allen's Test Pass; Site Drawn RIGHT RADIAL
[2020-11-16] MEDS: LEVOTHYROXINE SODIUM 100 MCG TABLET PO (05:40)
[2020-11-16] MEDS: LEVOTHYROXINE SODIUM 75 MCG TABLET PO (05:40)
[2020-11-16] MEDS: FUROSEMIDE INJ 40 MG/4 ML VIAL IV PUSH (05:41)
--- NOTE | 2020-11-16 05:46 | PCRCNOTE ---
REZA LOCKHART CALLED AT [facility] 044 STATING THAT PT HAD REMOVED HIS HOME BIPAP UNIT AND APNEA LINK. THERAPIST LYNN ABG SOON AVAILABLE ([phone]) WITH PT ON 4LPM NC.
[2020-11-16 05:56] LABS: Hematocrit 40.1 % (42.0-52.0); Hemoglobin 12.5 g/dL (14.0-18.0); Mean Corpuscular HGB Conc 31.2 g/dl (32-36); Mean Corpuscular Hemoglobin 33.3 pg (26-34); Mean Corpuscular Volume 106.9 fl (80-100); Mean Platelet Volume 12.1 fl (7.4-10.4); Platelet Count Result 87 k/mm3 (150-375); Red Blood Count 3.75 M/mm3 (4.6-6.20); Red Cell Distribution Width 14.9 % (11.5-14.5); White Blood Count 6.8 K/mm3 (4.5-10.0)
[2020-11-16 06:12] LABS: Blood Urea Nitrogen 34 mg/dL (9-20); Calcium 8.5 mg/dL (8.4-10.2); Carbon Dioxide > 40 mmol/L (22-30); Chloride 90 mmol/L (98-107); Estimated CRCL calculation 96 ml/min; Estimated Glomerular Filt Rate > 60; Glucose 124 mg/dL (75-110); Potassium 3.7 mmol/L (3.4-5.0); Sodium 143 mmol/L (137-145)
[2020-11-16] MEDS: HEPARIN SODIUM 5,000 UNITS/ML VIAL 5000 UNITS SUB-Q ×3 (06:30→21:21)
[2020-11-16 08:05] LABS: Glucose Point of Care 104 (65-105)
--- NOTE | 2020-11-16 08:40 | PM.PNPUL ---
Progress Note: A&P Assessment and Plan (1) Obesity hypoventilation syndrome: Code(s): E66.2 - Morbid (severe) obesity with alveolar hypoventilation Status: Acute Assessment and Plan: Patient with obesity hypoventilation syndrome, Enlarged RV with decreased function and normal LV function 65-70% with grade II diastolic dysfunction, mild TR with PASP 45. Patient with morbid obesity and acute on chronic hypercarbic respiratory failure from obesity with a blood gas of 7.30/47.6/55.4 on room air. Patient was initially treated with BiPAP but he could not tolerate the pressures and ripped the mask off overnight. Patient would benefit from noninvasive ventilation for his obesity hypoventilation syndrome to prevent further hospital admissions and morbidity from his hypercarbia. I have contacted respiratory team to initiate this process. 11/10 I discussed with the patient his obesity hypoventilation syndrome and he was willing to try noninvasive ventilation with an AVAPS mode. Settings that were most comfortable for him were rate of 14, tidal volume 500, EPAP 8, minimum inspiratory pressure 9, maximal inspiratory pressure 25, rise of 5 which is the slow S2 on our machine, inspiratory time of 1.2 seconds, FiO2 25% resulted in saturations of 96%. I will check a blood gas in the morning prior to removal of AVAPS NIV. Patient will need to lose weight in the future. 4/2 Wore hospital AVAPS last night with a respiratory rate of 14, tidal volume 500, EPAP 16, minimum inspiratory pressure 17 maximal inspiratory pressure 25 rise of 5, inspiratory time 1.2, 25%. Patient had desats throughout the night and required his oxygen increased to 40%. Patient had a blood gas at the end of the night on the settings with a pH of 7.26/68/56. Rapid response for lethargy that resolved spontaneously and ABG while hospital AVAPS was 7.27/74/195. Home ventilator set up today and patient placed on AVAPS-AE with a respiratory rate of 18, tidal volume 550, minimum EPAP 10, maximum EPAP 20, pressure support 5, pressure support max 25, maximum pressure 40, inspiratory time 1.2, with 8 L bleed in. Patient stated that these settings were comfortable and he will wear them tonight. Will check ABG in morning. 4/3 Unable to tolerate home vent mask last night and wore hospital AVAPS respiratory rate of 14, tidal volume 500, EPAP 16, minimum inspiratory pressure 17 maximal inspiratory pressure 25 rise of 5, inspiratory time 1.2, 60%. Tolerated OK. Will call DME and see if they can refit for mask today. Otherwise will change our AVAPS settings to RR 18 and TV 550. More awake today and On 4 L NC with sats 96%. 4/4 Wore hospital AVAPS respiratory rate of 18, tidal volume 550, EPAP 16, minimum inspiratory pressure 17 maximal inspiratory pressure 25 rise of 5, inspiratory time 1.2, 60%. Tolerated OK. DME not available to refit mask, call tomorrow. daytime On 3 L NC with sats 92%. 4/5 Wore [facility] AVAPS and changed to extra large mask for comfort, respiratory rate of 18, tidal volume 550, EPAP 16, minimum inspiratory pressure 17 maximal inspiratory pressure 25 rise of 5, inspiratory time 1.2, 40%. Tolerated OK. On 4 L NC with sats 97%, I decreased to 1 L and sats 93%. Will call DME to refit for larger more comfortable mask today but they can't come to hospital until 11/15. 4/6 Wore [facility] extra large mask for comfort, respiratory rate of 18, tidal volume 550, EPAP 16, minimum inspiratory pressure 17 maximal inspiratory pressure 25 rise of 5, inspiratory time 1.2, 40%, sats 94%. Tolerating mask a little better each day. On 4 L NC with sats 93%. Refit for home maskl later today and then home machine overnight with apnea link on 6 L and ABG in morning. 4/7 Wore home machine intermittantly with new mask on AVAPS AE with a respiratory rate of Auto, tidal volume 550, minimum EPAP 10, maximum EPAP 20, pressure support 5, pressure support max 25, maximum pressure 40, inspiratory time 1.2,
[2020-11-16 09:17] LABS: Chloride Rand Ur 86; Creatinine Random Urine 91
[2020-11-16 09:20] LABS: Chloride/Creatinine Rand Ur 95
[2020-11-16] MEDS: GLIMEPIRIDE 2 MG TABLET 4 MG PO ×2 (10:07→16:57)
[2020-11-16] MEDS: TAMSULOSIN HCL 0.4 MG CAPSULE PO (10:07)
[2020-11-16] MEDS: carvediloL 3.125 MG TABLET PO ×2 (10:07→20:01)
[2020-11-16] MEDS: ATORVASTATIN 20 MG TABLET PO (10:07)
[2020-11-16] MEDS: ASPIRIN 81 MG CHEWABLE TABLET PO (10:07)
[2020-11-16] MEDS: metFORMIN HCL XR 500 MG TAB.SR.24H 1000 MG PO ×2 (10:08→16:57)
[2020-11-16] MEDS: FINASTERIDE 5 MG TABLET PO (10:08)
[2020-11-16] MEDS: LOSARTAN POTASSIUM 25 MG TABLET PO (10:08)
[2020-11-16] MEDS: WATER, STERILE FOR INJECTION 10 ML VIAL XX (10:09)
[2020-11-16] MEDS: acetaZOLAMIDE SODIUM FOR INJ 500 MG VIAL IV PUSH (10:09)
--- NOTE | 2020-11-16 11:17 | PCNWS ---
Weekly nutritional screen. Patient is tolerating current diet with adequate intake. No weight loss reported. No nutritional needs at this time.
--- NOTE | 2020-11-16 11:26 | WPDCDIQUERY2 ---
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 Also documented is: I have a low clinical suspicion for community-acquired pneumonia and will discontinue ceftriaxone and azithromycin after blood cultures are negative for 48 hours and 4/2 Cultures negative and will DC antibiotics -Antibiotics discontinued 4/2 Please clarify if community acquired pneumonia has been ruled in or ruled out.
--- NOTE | 2020-11-16 11:37 | PM.PNCARD ---
Progress Note: A&P Assessment and Plan (1) CHF (congestive heart failure): Qualifiers: Heart failure chronicity: unspecified Heart failure type: unspecified Qualified Code(s): I50.9 - Heart failure, unspecified Code(s): I50.9 - Heart failure, unspecified Status: Acute Assessment and Plan: Predominantly right-sided heart failure and diastolic heart failure secondary to underlying untreated severe sleep apnea, obesity hypoventilation and body habitus and HTN. Continue IV Acetazolamide, impressive response <-22L thus far. However, pt remains volume overloaded. Attempt to transition to oral diuretics in the next 48 hours. Pt still has uncomfortable scrotal edema. (2) Elevated troponin: Code(s): R77.8 - Other specified abnormalities of plasma proteins Status: Acute Assessment and Plan: non [place] troponin elevation.This is not related to acute plaque rupture. Most likely secondary to heart failure and renal failure. Continue to check cardiac enzymes until peak. (3) Acute respiratory failure with hypoxia: Code(s): J96.01 - Acute respiratory failure with hypoxia Status: Acute Assessment and Plan: Strongly encourage treatment of sleep apnea. Extensively discussed with regards to risk for decompensated heart failure, declining quality of life at a minimum. Patient verbalized understanding. Son at bedside also concurs. Patient with obesity hypoventilation syndrome (4) Hypertension associated with diabetes: Code(s): E11.59 - Type 2 diabetes mellitus with other circulatory complications; I15.2 - Hypertension secondary to endocrine disorders Status: Acute Assessment and Plan: Elevated. Losartan resumed. Renal function stable, improving. Monitor closely. Up titrate as tolerated. (5) Hyperlipidemia associated with type 2 diabetes mellitus: Code(s): E11.69 - Type 2 diabetes mellitus with other specified complication; E78.5 - Hyperlipidemia, unspecified Status: Acute Assessment and Plan: Continue statin therapy. Patient has a history of carotid endarterectomy and should be on a statin regardless. Continue atorvastatin 20 mg daily (6) Morbid obesity with BMI of 50.0-59.9, adult: Code(s): E66.01 - Morbid (severe) obesity due to excess calories; Z68.43 - Body mass index [BMI] 50.0-59.9, adult Status: Acute Assessment and Plan: Lifestyle modification counseling. Subjective Date/time seen: Date of service:11/16/20 11:38 Interval history: Follow-up visit in this 70-year-old man with: Profound volume overload, this is the result of morbid obesity/hypoventilation sleep apnea syndrome and cor pulmonale. feeling better But still notes some testicular swelling. Still struggling BiPAP but trying. Willing to try again with a larger mask. Denies shortness of breath, lying flat bed. No chest pain. No new issues overnight. Very good urine output with an impressive >-22 L to date. Review of Systems Review of Systems: All systems reviewed & are unremarkable except as noted in HPI and below Constitutional: Constitutional: Reports as per HPI, Reports no additional constitutional complaints, Denies body ache(s), Reports fatigue, Denies headache(s) and Reports weakness Eyes: Eyes: Reports as per HPI, Reports no additional eye complaints and Denies blurry vision ENT: Reports system reviewed and no additional complaints, except as documented, Reports as per HPI, Reports Normal hearing present, Denies headache(s) and Denies neck pain Cardiovascular: Cardiovascular: Reports as per HPI, Reports no additional cardiovascular complaints, Denies chest pain, Reports pedal edema, Reports leg edema, Denies palpitations, Reports dyspnea and Reports dyspnea on exertion Respiratory: Respiratory: Reports as per HPI, Reports no additional respiratory complaints, Reports dyspnea and Reports dyspnea on exertion Gastrointesti
[2020-11-16 12:36] LABS: Glucose Point of Care 147 (65-105)
--- NOTE | 2020-11-16 12:51 | PM.IMPN ---
Progress Note: A&P Assessment and Plan (1) Acute respiratory failure with hypoxia: Code(s): J96.01 - Acute respiratory failure with hypoxia Status: Acute Assessment and Plan: 11/15/20 14:15 The patient is currently on a BiPAP machine and appears to be tolerating it well. The patient has been talking in full sentences. Wean off of BiPAP when feasible. After reviewing the chest x-ray to me this appears to be more of congestive heart failure however the ED physician felt that this was community-acquired pneumonia. Blood cultures are pending. Patient has no leukocytosis. No fever. No chills. No cough. The patient has an elevated D-dimer. V/Q scan when feasible. 11/10/20 patient is 70-year-old morbidly obese with BMI of 53 patient presented emergency department with a complaint 1 week increasing shortness of breath with exertion lower extremity swelling abdomen an along scrotal, patient has acute on chronic hypercarbic respiratory failure most likely patient has a multifactorial secondary to morbid obesity hypoventilation, sleep apnea, and suspect patient has congestive heart failure cardiac echo is pending, discussed with the pulmonology plan is to start the patient on noninvasive ventilator, patient is seen by beater and pulper feeder suspect patient had right heart failure core pulmonale secondary to sleep apnea morbidly obese and most likely has a left heart failure cardiac echo is pending will continue to diurese the patient and monitor Is and Os and further recommendation to follow, will follow-up on cardiac echo and and plan accordingly. 11/11 today patient was briefly unresponsive was seen by beater and pulper feeder and credit and collections representative and found to have hypoglycemia as patient takes oral hypoglycemia agents and due to JAMILA and poor urine output the medications remains in the system resulting in hypoglycemia, now the medications are on hold, patient did response his blood sugar was 119, patient was given 2 ampules of D50, will let him eat adlib and monitor blood sugars every 2 hours, [employer] is adjusting his home trilogy and patient has acute on chronic diastolic congestive heart failure and seen by beater and pulper feeder and recommending to continue to diurese the patient, will conitnue to monitor and have PT/OT work with patient. 11/12 patient still quite hypoglycemic, checking blood sugar every 2 hours being treated with 2 ampules D50 every 2 hours, today patient appears more awake and communicating, seen by credit and collections representative and beater and pulper feeder and agreed volume overload secondary to hypoventilation as well as sleep apnea patient is being diuresed and credit and collections representative is adjusting is trilogy, will continue to monitor and have PT OT work with the patient. 11/13 patient hypoglycemic has improved will stop D5 NS, he feels much better yesterday he was able to ambulate and sat on the chair, today he will work with physical therapy, patient also states his breathing has improved patient is being diuresed his swelling has improved but still persist along his groin area and lower extremity, DW pulmonology today will try to adjust his home CPAP, will encourage patient to participate in physical, patient will benefit going to rehab before going home. 11/14 Patient hypoglycemia has resolved, we are holding oral hypoglycemic medications, and monitoring with low sliding scale, patient was seen his by credit and collections representative and patient is able tolerated his BIPA with large mask, patient is seen by cardiolgoist and he is being diuresed and his BUN and creatinine are improving, once creatinine is stable,Patient is seen by Dr. Rojas, training and development professional, may resume metformin, patient stats he is feeling much better and not as short of breath. patient is working with PT/OT will continue and benefit going home with PT and home health. 11/15 patient was able to wear larger mask last night and felt comfortable seen by pulmonology and will order large mask from home BiPAP machine, patient hypoglycemia has resolved we
[2020-11-16 17:02] LABS: Glucose Point of Care 152 (65-105)
[2020-11-16 20:31] LABS: Glucose Point of Care 242 (65-105)
[2020-11-17] VITALS (10 sets, daily range): BP systolic 141–152; BP diastolic 48–62; PULSE 66–73; RESP 12–21; TEMP 35.6–36.2; O2SAT 92–98
[2020-11-17 04:35] LABS: Creatinine, Random Urine 92 mg/dL (20-320); Total Protein/Creatinine Ratio 467 mg/g creat (22-128)
[2020-11-17] MEDS: LEVOTHYROXINE SODIUM 100 MCG TABLET PO (05:51)
[2020-11-17] MEDS: LEVOTHYROXINE SODIUM 75 MCG TABLET PO (05:51)
[2020-11-17] MEDS: HEPARIN SODIUM 5,000 UNITS/ML VIAL 5000 UNITS SUB-Q ×3 (05:52→21:38)
--- NOTE | 2020-11-17 07:10 | PM.IMPN ---
Progress Note: A&P Assessment and Plan (1) Acute on chronic diastolic (congestive) heart failure: Code(s): I50.33 - Acute on chronic diastolic (congestive) heart failure Status: Acute Assessment and Plan: Continue diuresis. Cardiology following recommendations appreciated. (2) JAMILA (acute kidney injury): Code(s): N17.9 - Acute kidney failure, unspecified Status: Acute Assessment and Plan: Improving a.m. labs pending today (3) Chronic kidney disease, stage 3: Code(s): N18.30 - Chronic kidney disease, stage 3 unspecified Status: Chronic (4) Scrotal edema: Code(s): N50.89 - Other specified disorders of the male genital organs Status: Acute Assessment and Plan: Continue primary measures elevation and diuresis (5) Fluid overload: Code(s): E87.70 - Fluid overload, unspecified Status: Acute Assessment and Plan: Patient remains on Lasix t.i.d. (6) Diabetes: Code(s): E11.9 - Type 2 diabetes mellitus without complications Status: Chronic Assessment and Plan: Blood glucose not at goal S and sliding scale increase to medium dose will need Lantus 10 units q.h.s. anticipate increase to BID dosing dc glimepiride (7) Hypertension: Code(s): I10 - Essential (primary) hypertension Status: Chronic Assessment and Plan: cont current therapy Time Spent With Patient Time with patient: Greater than 35 minutes Subjective Date/time seen: 11/17/20 07:10 pt has no complaints at time of my interview other than painful scortal edema. He has been noncompliant with nursing measures to elevated. Review of clinical course and history with him, but he states that the other doctor told him he does not have heart failure. Pt reassured that this is incorrect and we will ask cardiology to speak with him again. He is noted to have difficulty turning over in bed and agrees to SNF for generalized weakness. Exam Narrative: Exam Narrative: GEN: NAD, AAOx3, cooperative, morbidly obese HEENT: NCAT, MMM, EOMI Neck: no JVD Heart: S1S2 RRR Lungs: CTA crackles Abd: soft, NT, ND, bowel sounds normoactive : scrotal edema Ext: moves all, no cyanosis, no clubbing, 2+ pitting edema Neuro: no focal neuro deficits, CN intact Psych: mood and affect congruent Objective Data Vital Signs Vital Signs: Vital Signs - 24 hr 11/16/20 08:00 11/16/20 08:07 11/16/20 10:07 Temperature Pulse Rate 72 Respiratory Rate Blood Pressure Pulse Oximetry 97 84 L 11/16/20 14:19 11/16/20 19:50 11/16/20 20:01 Temperature 98.2 F 97 F L Pulse Rate 72 71 71 Respiratory Rate 18 20 Blood Pressure 165/59 H 160/46 H Pulse Oximetry 96 100 11/16/20 22:10 11/16/20 22:21 11/17/20 02:24 Temperature Pulse Rate 79 73 Respiratory Rate 18 19 Blood Pressure Pulse Oximetry 95 95 94 11/17/20 05:55 Temperature 96.1 F L Pulse Rate 67 Respiratory Rate 14 Blood Pressure 141/55 H Pulse Oximetry 98 Intake/Output Intake/Output: Intake & Output 11/14/20 11/15/20 11/16/20 11/17/20 23:59 23:59 23:59 23:59 Intake Total 1270 1470 1670 Output Total 5700 6250 6400 2450 [facility] [place] [phone] Meds/Results Medications: Active Medications Generic Name Dose Route Start Last Admin Trade Name Freq PRN Reason Stop Dose Admin Acetaminophen 650 mg 11/15/20 15:34 11/15/20 17:31 Acetaminophen 325 Mg Tablet PO 650 mg Q6H PRN Administration Mild Pain (1-3) or Fever Acetazolamide Sodium 500 mg 11/16/20 09:00 11/16/20 10:09 Acetazolamide Sodium For Inj 500 Mg Vial IV PUSH 500 mg DAILY RADHA Administration Albuterol 2 puff 11/09/20 14:24 Albuterol Sulfate (*Sp) Aerosol 1 Puff INHALATION Q6HRT PRN Shortness Of Breath Aspirin 81 mg 11/10/20 08:00 11/16/20 10:07 Aspirin 81 Mg Chewable Tablet PO 81 mg DAILY@0800 [facility] Administration Atorvastatin Calcium 20 mg 11/10/20
[2020-11-17 07:58] LABS: Glucose Point of Care 80 (65-105)
[2020-11-17] MEDS: TAMSULOSIN HCL 0.4 MG CAPSULE PO (10:18)
[2020-11-17] MEDS: metFORMIN HCL XR 500 MG TAB.SR.24H 1000 MG PO ×2 (10:18→18:09)
[2020-11-17] MEDS: ATORVASTATIN 20 MG TABLET PO (10:19)
[2020-11-17] MEDS: GLIMEPIRIDE 2 MG TABLET 4 MG PO (10:19)
[2020-11-17] MEDS: ASPIRIN 81 MG CHEWABLE TABLET PO (10:19)
[2020-11-17] MEDS: carvediloL 3.125 MG TABLET PO ×2 (10:20→21:38)
[2020-11-17] MEDS: LOSARTAN POTASSIUM 25 MG TABLET PO (10:20)
[2020-11-17] MEDS: FINASTERIDE 5 MG TABLET PO (10:20)
[2020-11-17] MEDS: acetaZOLAMIDE SODIUM FOR INJ 500 MG VIAL IV PUSH (10:21)
[2020-11-17 11:15] LABS: Glucose Point of Care 119 (65-105)
--- NOTE | 2020-11-17 15:08 | PM.PNCARD ---
Progress Note: A&P Assessment and Plan (1) CHF (congestive heart failure): Qualifiers: Heart failure chronicity: unspecified Heart failure type: unspecified Qualified Code(s): I50.9 - Heart failure, unspecified Code(s): I50.9 - Heart failure, unspecified Status: Acute Assessment and Plan: Predominantly right-sided heart failure and diastolic heart failure secondary to underlying untreated severe sleep apnea, obesity hypoventilation and body habitus and HTN. Continue IV Acetazolamide, impressive response <-28L thus far. However, pt remains volume overloaded. Continue IV diuresis as he is responding very well, pt is agreeable. Check BMP, monitor electrolytes. (2) Elevated troponin: Code(s): R77.8 - Other specified abnormalities of plasma proteins Status: Acute Assessment and Plan: non [place] troponin elevation.This is not related to acute plaque rupture. Most likely secondary to heart failure and renal failure. Continue to check cardiac enzymes until peak. (3) Acute respiratory failure with hypoxia: Code(s): J96.01 - Acute respiratory failure with hypoxia Status: Acute Assessment and Plan: Strongly encouraged treatment of sleep apnea. Extensively discussed with regards to risk for decompensated heart failure, declining quality of life at a minimum. Patient verbalized understanding. Son at bedside also concurs. Patient with obesity hypoventilation syndrome (4) Hypertension associated with diabetes: Code(s): E11.59 - Type 2 diabetes mellitus with other circulatory complications; I15.2 - Hypertension secondary to endocrine disorders Status: Acute Assessment and Plan: Elevated. Losartan resumed. Renal function stable, improving. Monitor closely. Up titrate as tolerated. (5) Hyperlipidemia associated with type 2 diabetes mellitus: Code(s): E11.69 - Type 2 diabetes mellitus with other specified complication; E78.5 - Hyperlipidemia, unspecified Status: Acute Assessment and Plan: Continue statin therapy. Patient has a history of carotid endarterectomy and should be on a statin regardless. Continue atorvastatin 20 mg daily (6) Morbid obesity with BMI of 50.0-59.9, adult: Code(s): E66.01 - Morbid (severe) obesity due to excess calories; Z68.43 - Body mass index [BMI] 50.0-59.9, adult Status: Acute Assessment and Plan: Lifestyle modification counseling. Subjective Date/time seen: Date of Service: 11/17/20 15:08 Interval history: Follow-up visit in this 70-year-old man with: Profound volume overload, this is the result of morbid obesity/hypoventilation sleep apnea syndrome and cor pulmonale. Continue to feel better. Scrotal edema is most bothersome to him. no CP or significant GARCIA. Denies shortness of breath, lying flat bed. No new issues overnight. Very good urine output with an impressive >-28 L to date. Review of Systems Review of Systems: All systems reviewed & are unremarkable except as noted in HPI and below Constitutional: Constitutional: Reports as per HPI, Reports no additional constitutional complaints, Denies body ache(s), Reports fatigue, Denies headache(s) and Reports weakness Eyes: Eyes: Reports as per HPI, Reports no additional eye complaints and Denies blurry vision ENT: Reports system reviewed and no additional complaints, except as documented, Reports as per HPI, Reports Normal hearing present, Denies headache(s) and Denies neck pain Cardiovascular: Cardiovascular: Reports as per HPI, Reports no additional cardiovascular complaints, Denies chest pain, Reports pedal edema, Reports leg edema, Denies palpitations, Reports dyspnea and Reports dyspnea on exertion Respiratory: Respiratory: Reports as per HPI, Reports no additional respiratory complaints, Reports dyspnea and Reports dyspnea on exertion Gastrointestinal: Gastrointestinal: Reports as per HPI, Reports no additi
[2020-11-17 15:29] LABS: Potassium 3.8 mmol/L (3.4-5.0)
[2020-11-17 15:34] LABS: Blood Urea Nitrogen 28 mg/dL (9-20); Calcium 8.9 mg/dL (8.4-10.2); Carbon Dioxide > 40 mmol/L (22-30); Chloride 94 mmol/L (98-107); Estimated CRCL calculation 86 ml/min; Estimated Glomerular Filt Rate > 60; Glucose 123 mg/dL (75-110); Sodium 140 mmol/L (137-145)
[2020-11-17 16:52] LABS: Glucose Point of Care 131 (65-105)
[2020-11-17] MEDS: INSULIN GLARGINE (*BKC) 100 UNITS/ML 10 UNITS SUB-Q (21:38)
[2020-11-17 23:02] LABS: Glucose Point of Care 150 (65-105)
[2020-11-18] VITALS (9 sets, daily range): BP systolic 141–180; BP diastolic 61–85; PULSE 67–74; RESP 12–18; TEMP 36–36.5; O2SAT 94–100
[2020-11-18 05:51] LABS: Basophils Percent Auto 0.5 % (0.2-1.2); Eosinophils Absolute Auto 0.1 K/mm3 (0-0.3); Eosinophils Percent Auto 1.5 % (0-4.4); Hematocrit 39.5 % (42.0-52.0); Hemoglobin 12.1 g/dL (14.0-18.0); Immature Granulocyte Absolute 0.03 K/mm3 (0.00-0.031); Immature Granulocyte Percent A 0.5 % (0-0.5); Mean Corpuscular HGB Conc 30.6 g/dl (32-36); Mean Corpuscular Hemoglobin 33.1 pg (26-34); Mean Corpuscular Volume 107.9 fl (80-100); Mean Platelet Volume 12.6 fl (7.4-10.4); Monocytes Absolute Auto 0.7 K/mm3 (0.1-0.6); Monocytes Percent Auto 10.6 % (2.6-8.5); Neutrophils Absolute Auto 4.2 K/mm3 (1.3-6.7); Neutrophils Percent Auto 68.9 % (45.5-73.1); Platelet Count Result 80 k/mm3 (150-375); Red Blood Count 3.66 M/mm3 (4.6-6.20); Red Cell Distribution Width 14.3 % (11.5-14.5); White Blood Count 6.1 K/mm3 (4.5-10.0)
[2020-11-18 06:07] LABS: Anion Gap 3 mmol/L (8-16); Blood Urea Nitrogen 27 mg/dL (9-20); Calcium 8.7 mg/dL (8.4-10.2); Carbon Dioxide 39 mmol/L (22-30); Chloride 98 mmol/L (98-107); Estimated CRCL calculation 94 ml/min; Estimated Glomerular Filt Rate > 60; Glucose 92 mg/dL (75-110); Magnesium 1.9 mg/dL (1.6-2.3); Potassium 3.6 mmol/L (3.4-5.0); Sodium 140 mmol/L (137-145)
[2020-11-18] MEDS: LEVOTHYROXINE SODIUM 100 MCG TABLET PO (06:46)
[2020-11-18] MEDS: LEVOTHYROXINE SODIUM 75 MCG TABLET PO (06:46)
[2020-11-18] MEDS: HEPARIN SODIUM 5,000 UNITS/ML VIAL 5000 UNITS SUB-Q ×3 (06:47→21:43)
[2020-11-18 07:08] LABS: Glucose Point of Care 68 (65-105)
[2020-11-18] MEDS: ASPIRIN 81 MG CHEWABLE TABLET PO (08:57)
[2020-11-18] MEDS: TAMSULOSIN HCL 0.4 MG CAPSULE PO (08:57)
[2020-11-18] MEDS: metFORMIN HCL XR 500 MG TAB.SR.24H 1000 MG PO ×2 (08:57→17:10)
[2020-11-18] MEDS: ATORVASTATIN 20 MG TABLET PO (08:58)
[2020-11-18] MEDS: LOSARTAN POTASSIUM 25 MG TABLET PO (08:58)
[2020-11-18] MEDS: FINASTERIDE 5 MG TABLET PO (08:58)
[2020-11-18] MEDS: carvediloL 3.125 MG TABLET PO ×2 (08:58→21:43)
--- NOTE | 2020-11-18 10:12 | P.PNPL_ITS ---
Progress Note: A&P Assessment and Plan (1) Obesity hypoventilation syndrome: Code(s): E66.2 - Morbid (severe) obesity with alveolar hypoventilation Status: Acute Assessment and Plan: Patient with obesity hypoventilation syndrome, Enlarged RV with decreased function and normal LV function 65-70% with grade II diastolic dysfunction, mild TR with PASP 45. Patient with morbid obesity and acute on chronic hypercarbic respiratory failure from obesity with a blood gas of 7.30/47.6/55.4 on room air. Patient was initially treated with BiPAP but he could not tolerate the pressures and ripped the mask off overnight. Patient would benefit from noninvasive ventilation for his obesity hypoventilation syndrome to prevent further hospital admissions and morbidity from his hypercarbia. I have contacted respiratory team to initiate this process. 11/10 I discussed with the patient his obesity hypoventilation syndrome and he was willing to try noninvasive ventilation with an AVAPS mode. Settings that were most comfortable for him were rate of 14, tidal volume 500, EPAP 8, minimum inspiratory pressure 9, maximal inspiratory pressure 25, rise of 5 which is the slow S2 on our machine, inspiratory time of 1.2 seconds, FiO2 25% resulted in saturations of 96%. I will check a blood gas in the morning prior to removal of AVAPS NIV. Patient will need to lose weight in the future. 4/2 Wore hospital AVAPS last night with a respiratory rate of 14, tidal volume 500, EPAP 16, minimum inspiratory pressure 17 maximal inspiratory pressure 25 rise of 5, inspiratory time 1.2, 25%. Patient had desats throughout the night and required his oxygen increased to 40%. Patient had a blood gas at the end of the night on the settings with a pH of 7.26/68/56. Rapid response for lethargy that resolved spontaneously and ABG while hospital AVAPS was 7.27/74/195. Home ventilator set up today and patient placed on AVAPS-AE with a respiratory rate of 18, tidal volume 550, minimum EPAP 10, maximum EPAP 20, pressure support 5, pressure support max 25, maximum pressure 40, inspiratory time 1.2, with 8 L bleed in. Patient stated that these settings were comfortable and he will wear them tonight. Will check ABG in morning. 4/3 Unable to tolerate home vent mask last night and wore hospital AVAPS respiratory rate of 14, tidal volume 500, EPAP 16, minimum inspiratory pressure 17 maximal inspiratory pressure 25 rise of 5, inspiratory time 1.2, 60%. Tolerated OK. Will call DME and see if they can refit for mask today. Otherwise will change our AVAPS settings to RR 18 and TV 550. More awake today and On 4 L NC with sats 96%. 11/13 Wore hospital AVAPS respiratory rate of 18, tidal volume 550, EPAP 16, minimum inspiratory pressure 17 maximal inspiratory pressure 25 rise of 5, inspiratory time 1.2, 60%. Tolerated OK. DME not available to refit mask, call tomorrow. daytime On 3 L NC with sats 92%. 11/14 Wore [facility] AVAPS and changed to extra large mask for comfort, respiratory rate of 18, tidal volume 550, EPAP 16, minimum inspiratory pressure 17 maximal inspiratory pressure 25 rise of 5, inspiratory time 1.2, 40%. Tolerated OK. On 4 L NC with sats 97%, I decreased to 1 L and sats 93%. Will call DME to refit for larger more comfortable mask today but they can't come to hospital until 11/15. 11/15 Wore [facility] AVAPS extra large mask for comfort, respiratory rate of 18, tidal volume 550, EPAP 16, minimum inspiratory pressure 17 maximal inspiratory pressure 25 rise of 5, inspiratory time 1.2, 40%, sats 94%. Tolerating mask a little better each day. On 4 L NC with sats 93%. Refit for home maskl later today and then home machine overnight with apnea link on 6 L and ABG in morning.
[2020-11-18 11:30] LABS: Glucose Point of Care 138 (65-105)
--- NOTE | 2020-11-18 16:09 | PM.PNCARD ---
Progress Note: A&P Assessment and Plan (1) CHF (congestive heart failure): Qualifiers: Heart failure chronicity: unspecified Heart failure type: unspecified Qualified Code(s): I50.9 - Heart failure, unspecified Code(s): I50.9 - Heart failure, unspecified Status: Acute Assessment and Plan: Predominantly right-sided heart failure and diastolic heart failure secondary to underlying untreated severe sleep apnea, obesity hypoventilation and body habitus and HTN. IV Acetazolamide discontinued today. Impressive response <-30L thus far but slowing. However, pt remains volume overloaded. Will change to Bumex 1mg BID, monitor renal function, electrolytes, alkalosis. Check BMP, monitor electrolytes. (2) Elevated troponin: Code(s): R77.8 - Other specified abnormalities of plasma proteins Status: Acute Assessment and Plan: Non [place] troponin elevation.This is not related to acute plaque rupture. Most likely secondary to heart failure and renal failure. Continue to check cardiac enzymes until peak. (3) Acute respiratory failure with hypoxia: Code(s): J96.01 - Acute respiratory failure with hypoxia Status: Acute Assessment and Plan: Trilogy unit at bedside. Extensively discussed with regards to risk for decompensated heart failure, declining quality of life at a minimum. Patient verbalized understanding. Son at bedside also concurs. Patient with obesity hypoventilation syndrome (4) Hypertension associated with diabetes: Code(s): E11.59 - Type 2 diabetes mellitus with other circulatory complications; I15.2 - Hypertension secondary to endocrine disorders Status: Acute Assessment and Plan: Elevated. Losartan resumed. Renal function stable, improving. Monitor closely. Up titrate as tolerated. (5) Hyperlipidemia associated with type 2 diabetes mellitus: Code(s): E11.69 - Type 2 diabetes mellitus with other specified complication; E78.5 - Hyperlipidemia, unspecified Status: Acute Assessment and Plan: Continue statin therapy. Patient has a history of carotid endarterectomy and should be on a statin regardless. Continue Atorvastatin 20 mg daily (6) Morbid obesity with BMI of 50.0-59.9, adult: Code(s): E66.01 - Morbid (severe) obesity due to excess calories; Z68.43 - Body mass index [BMI] 50.0-59.9, adult Status: Acute Assessment and Plan: Lifestyle modification counseling. Subjective Date/time seen: Date of service: 11/18/20 16:09 Interval history: Follow-up visit in this 70-year-old man with: Profound volume overload, this is the result of morbid obesity/hypoventilation sleep apnea syndrome and cor pulmonale. Feels fine. No new issues. IV Acetazolamide discontinued today. Scrotal edema remains. no CP or significant GARCIA. Denies shortness of breath, lying flat bed. No new issues overnight. Very good urine output with an impressive >-28 L to date. Review of Systems Review of Systems: All systems reviewed & are unremarkable except as noted in HPI and below Constitutional: Constitutional: Reports as per HPI, Reports no additional constitutional complaints, Denies body ache(s), Reports fatigue, Denies headache(s) and Reports weakness Eyes: Eyes: Reports as per HPI, Reports no additional eye complaints and Denies blurry vision ENT: Reports system reviewed and no additional complaints, except as documented, Reports as per HPI, Reports Normal hearing present, Denies headache(s) and Denies neck pain Cardiovascular: Cardiovascular: Reports as per HPI, Reports no additional cardiovascular complaints, Denies chest pain, Reports pedal edema, Reports leg edema, Denies palpitations, Reports dyspnea and Reports dyspnea on exertion Respiratory: Respiratory: Reports as per HPI, Reports no additional respiratory complaints, Reports dyspnea and Reports dyspnea on exertion Gastrointestinal: Gastrointestinal: Repo
[2020-11-18 17:12] LABS: Glucose Point of Care 148 (65-105)
--- NOTE | 2020-11-18 19:30 | PM.IMPN ---
Progress Note: A&P Assessment and Plan (1) Acute on chronic diastolic (congestive) heart failure: Code(s): I50.33 - Acute on chronic diastolic (congestive) heart failure Status: Acute Assessment and Plan: Continue diuresis. Cardiology following recommendations appreciated. (2) JAMILA (acute kidney injury): Code(s): N17.9 - Acute kidney failure, unspecified Status: Acute Assessment and Plan: Improving a.m. labs pending today (3) Chronic kidney disease, stage 3: Code(s): N18.30 - Chronic kidney disease, stage 3 unspecified Status: Chronic (4) Scrotal edema: Code(s): N50.89 - Other specified disorders of the male genital organs Status: Acute Assessment and Plan: Continue primary measures elevation and diuresis (5) Fluid overload: Code(s): E87.70 - Fluid overload, unspecified Status: Acute Assessment and Plan: Patient remains on Lasix t.i.d. (6) Diabetes: Code(s): E11.9 - Type 2 diabetes mellitus without complications Status: Chronic Assessment and Plan: Blood glucose not at goal S and sliding scale increase to medium dose will need Lantus 10 units q.h.s. anticipate increase to BID dosing dc glimepiride (7) Hypertension: Code(s): I10 - Essential (primary) hypertension Status: Chronic Assessment and Plan: cont current therapy Additional Plan Patient remains stable with improved renal function and continuing to successfully diuresed negative another L today. Blood pressure not at goal p.r.n. coverage added and losartan increased to 50 mg p.o. q.day. blood glucose at goal Continue ongoing diuresis anticipate discharge home with home health care in 48-72 hours. Time Spent With Patient Time with patient: 25 - 35 minutes Subjective Date/time seen: 11/18/20 19:30 Medardo has no complaints with time my interview. He has been able to get up and ambulate in the hallway with minimal assistance. Anticipate discharge home when diuresing completed. Exam Narrative: Exam Narrative: GEN: NAD, AAOx3, cooperative morbidly obese HEENT: NCAT, MMM, EOMI Heart: S1S2 RRR Lungs: Decreased breath sounds, mild base crackles Abd: soft, NT, ND, bowel sounds normoactive Ext: moves all, no cyanosis, no clubbing, 1+ edema Neuro: Cranial nerves intact, no focal motor deficits appreciated Psych: mood and affect congruent Objective Data Vital Signs Vital Signs: Vital Signs - 24 hr 11/17/20 20:23 11/17/20 21:38 11/17/20 23:08 Temperature 97.1 F L Pulse Rate 66 66 70 Respiratory Rate 12 Blood Pressure 152/48 H Pulse Oximetry 94 97 11/17/20 23:09 11/18/20 04:30 11/18/20 05:45 Temperature 97.7 F Pulse Rate 70 67 68 Respiratory Rate 21 H 16 12 Blood Pressure 180/72 H Pulse Oximetry 97 94 100 11/18/20 08:58 11/18/20 09:00 11/18/20 15:34 Temperature 97.2 F L Pulse Rate 68 72 Respiratory Rate 18 Blood Pressure 141/61 H Pulse Oximetry 100 99 Intake/Output Intake/Output: Intake & Output 11/15/20 11/16/20 11/17/20 11/18/20 23:59 23:59 23:59 23:59 Intake Total 1470 3727 246 4337 Output Total 6250 6400 4750 2600 [facility]4780 -4730 -3790 -1030 Meds/Results Medications: Active Medications Generic Name Dose Route Start Last Admin Trade Name Freq PRN Reason Stop Dose Admin Acetaminophen 650 mg 11/15/20 15:34 11/15/20 17:31 Acetaminophen 325 Mg Tablet PO 650 mg Q6H PRN Administration Mild Pain (1-3) or Fever Albuterol 2 puff 11/09/20 14:24 Albuterol Sulfate (*Sp) Aerosol 1 Puff INHALATION Q6HRT PRN Shortness Of Breath Aspirin 81 mg 11/10/20 08:00 11/18/20 08:57 Aspirin 81 Mg Chewable Tablet PO 81 mg DAILY@0800 RADHA Administration Atorvastatin Calcium 20 mg 11/10/20 09:00 11/18/20 08:58 Atorvastatin 20 Mg Tablet PO 20 mg DAILY RADHA Administration Bumetanide 1 mg 11/19/20 09:00 Bumetanide 1 Mg Tablet PO BID S
[2020-11-18 19:49] LABS: SARS-CoV-2 RNA PCR Negative
[2020-11-18] MEDS: INSULIN GLARGINE (*BKC) 100 UNITS/ML 10 UNITS SUB-Q (21:43)
[2020-11-18 22:13] LABS: Glucose Point of Care 170 (65-105)
[2020-11-19] VITALS (10 sets, daily range): BP systolic 153–164; BP diastolic 50–51; PULSE 63–75; RESP 16–18; TEMP 36.3; O2SAT 93–96
[2020-11-19] MEDS: LEVOTHYROXINE SODIUM 75 MCG TABLET PO (05:57)
[2020-11-19] MEDS: LEVOTHYROXINE SODIUM 100 MCG TABLET PO (05:57)
[2020-11-19 08:33] LABS: Glucose Point of Care 71 (65-105)
[2020-11-19] MEDS: metFORMIN HCL XR 500 MG TAB.SR.24H 1000 MG PO ×2 (08:49→16:35)
[2020-11-19] MEDS: ASPIRIN 81 MG CHEWABLE TABLET PO (08:49)
[2020-11-19] MEDS: LOSARTAN POTASSIUM 50 MG TABLET PO (08:50)
[2020-11-19] MEDS: TAMSULOSIN HCL 0.4 MG CAPSULE PO (08:50)
[2020-11-19] MEDS: BUMETANIDE 1 MG TABLET PO ×2 (08:50→16:35)
[2020-11-19] MEDS: FINASTERIDE 5 MG TABLET PO (08:50)
[2020-11-19] MEDS: ATORVASTATIN 20 MG TABLET PO (08:50)
[2020-11-19] MEDS: carvediloL 3.125 MG TABLET PO ×2 (08:50→20:17)
--- NOTE | 2020-11-19 12:03 | PM.PNCARD ---
Progress Note: A&P Assessment and Plan (1) CHF (congestive heart failure): Qualifiers: Heart failure chronicity: unspecified Heart failure type: unspecified Qualified Code(s): I50.9 - Heart failure, unspecified Code(s): I50.9 - Heart failure, unspecified Status: Acute Assessment and Plan: Predominantly right-sided heart failure and diastolic heart failure secondary to underlying untreated severe sleep apnea, obesity hypoventilation and body habitus and HTN. Impressive response <-29L thus far but slowing predominantly with IV Lasix and more recently IV Acetazolamide (due to contraction alkalosis). However, pt remains volume overloaded. Will change to Bumex 1mg BID, monitor renal function, electrolytes, alkalosis. Check BMP today, monitor electrolytes. (2) Elevated troponin: Code(s): R77.8 - Other specified abnormalities of plasma proteins Status: Acute Assessment and Plan: Non [place] troponin elevation.This is not related to acute plaque rupture. Most likely secondary to heart failure and renal failure. Continue to check cardiac enzymes until peak. (3) Acute respiratory failure with hypoxia: Code(s): J96.01 - Acute respiratory failure with hypoxia Status: Acute Assessment and Plan: Trilogy unit at bedside. Must remain compliant to reduce risk for decompensated heart failure, declining quality of life at a minimum. Patient verbalized understanding. Son at bedside also concurs. Patient with obesity hypoventilation syndrome (4) Hypertension associated with diabetes: Code(s): E11.59 - Type 2 diabetes mellitus with other circulatory complications; I15.2 - Hypertension secondary to endocrine disorders Status: Acute Assessment and Plan: Elevated. Increase Losartan to 50mg daily. Renal function stable, no BMP today as yet, I ordered. Monitor closely. Up titrate as tolerated. (5) Hyperlipidemia associated with type 2 diabetes mellitus: Code(s): E11.69 - Type 2 diabetes mellitus with other specified complication; E78.5 - Hyperlipidemia, unspecified Status: Acute Assessment and Plan: Continue statin therapy. Patient has a history of carotid endarterectomy and should be on a statin regardless. Continue Atorvastatin 20 mg daily (6) Morbid obesity with BMI of 50.0-59.9, adult: Code(s): E66.01 - Morbid (severe) obesity due to excess calories; Z68.43 - Body mass index [BMI] 50.0-59.9, adult Status: Acute Assessment and Plan: Lifestyle modification counseling. Subjective Date/time seen: Date of service: 11/19/20 12:03 Interval history: Follow-up visit in this 70-year-old man with: Profound volume overload, this is the result of morbid obesity/hypoventilation sleep apnea syndrome and cor pulmonale. Feels fine. No new issues. po Bumex resumed. Scrotal edema remains. no CP or significant GARCIA. Denies shortness of breath, lying flat bed. No new issues overnight. Very good urine output but definitely slowing with an impressive >-29 L to date. Review of Systems Review of Systems: All systems reviewed & are unremarkable except as noted in HPI and below Constitutional: Constitutional: Reports as per HPI, Reports no additional constitutional complaints, Denies body ache(s), Reports fatigue, Denies headache(s) and Reports weakness Eyes: Eyes: Reports as per HPI, Reports no additional eye complaints and Denies blurry vision ENT: Reports system reviewed and no additional complaints, except as documented, Reports as per HPI, Reports Normal hearing present, Denies headache(s) and Denies neck pain Cardiovascular: Cardiovascular: Reports as per HPI, Reports no additional cardiovascular complaints, Denies chest pain, Reports pedal edema, Reports leg edema, Denies palpitations, Reports dyspnea and Reports dyspnea on exertion Respiratory: Respiratory: Reports as per HPI, Reports no additional respirator
[2020-11-19 12:36] LABS: Glucose Point of Care 102 (65-105)
[2020-11-19 13:54] LABS: Anion Gap 5 mmol/L (8-16); Blood Urea Nitrogen 32 mg/dL (9-20); Calcium 8.9 mg/dL (8.4-10.2); Carbon Dioxide 35 mmol/L (22-30); Chloride 99 mmol/L (98-107); Estimated CRCL calculation 94 ml/min; Estimated Glomerular Filt Rate > 60; Glucose 110 mg/dL (75-110); Potassium 4.6 mmol/L (3.4-5.0); Sodium 139 mmol/L (137-145)
[2020-11-19] MEDS: HEPARIN SODIUM 5,000 UNITS/ML VIAL 5000 UNITS SUB-Q ×2 (14:51→20:18)
[2020-11-19 16:37] LABS: Glucose Point of Care 133 (65-105)
--- NOTE | 2020-11-19 18:31 | PM.IMPN ---
Progress Note: A&P Assessment and Plan (1) Acute on chronic diastolic (congestive) heart failure: Code(s): I50.33 - Acute on chronic diastolic (congestive) heart failure Status: Acute Assessment and Plan: Continue diuresis. Cardiology following recommendations appreciated. 1 L off yesterday and today with positive water balance Fluid restriction ordered Patient placed on Bumex 1 mg p.o. b.i.d. (2) JAMILA (acute kidney injury): Code(s): N17.9 - Acute kidney failure, unspecified Status: Acute Assessment and Plan: resolved (3) Chronic kidney disease, stage 3: Code(s): N18.30 - Chronic kidney disease, stage 3 unspecified Status: Chronic Assessment and Plan: Current at baseline (4) Scrotal edema: Code(s): N50.89 - Other specified disorders of the male genital organs Status: Acute Assessment and Plan: Improving (5) Fluid overload: Code(s): E87.70 - Fluid overload, unspecified Status: Acute Assessment and Plan: Improving (6) Diabetes: Code(s): E11.9 - Type 2 diabetes mellitus without complications Status: Chronic Assessment and Plan: Blood glucose not at goal S and sliding scale increase to medium dose will need Lantus 10 units q.h.s. anticipate increase to BID dosing dc glimepiride (7) Hypertension: Code(s): I10 - Essential (primary) hypertension Status: Chronic Assessment and Plan: cont current therapy Additional Plan Patient remains stable with improved renal function, up almost 1L today. placed on Bumex by cardiology, fluid restriction ordered, Blood pressure not at goal p.r.n. coverage added and losartan increased to 50 mg p.o. q.day -> 100mg PO QD. blood glucose at goal Continue ongoing diuresis anticipate discharge home with home health care in 24-48 hours. Time Spent With Patient Time with patient: 25 - 35 minutes Subjective Date/time seen: 11/19/20 18:31 Patient doing okay improved motility able to sit up in the bed without assistance today. Continuing to diurese. Blood pressure not at goal will titrate medications again today. Anticipate discharge home on Saturday. Exam Narrative: Exam Narrative: GEN: NAD, AAOx3, cooperative morbidly obese HEENT: NCAT, MMM, EOMI Heart: S1S2 RRR Lungs: Decreased breath sounds, mild crackles at left base Abd: soft, NT, ND, bowel sounds normoactive Ext: moves all, no cyanosis, no clubbing, 1+ edema Neuro: Cranial nerves intact, no focal motor deficits appreciated Psych: mood and affect congruent Objective Data Vital Signs Vital Signs: Vital Signs - 24 hr 11/18/20 19:36 11/18/20 20:05 11/18/20 21:43 Temperature 96.8 F L Pulse Rate 74 68 Respiratory Rate 18 Blood Pressure 179/85 H Pulse Oximetry 96 96 11/18/20 23:20 11/19/20 04:35 11/19/20 07:55 Temperature Pulse Rate 68 63 Respiratory Rate 18 18 Blood Pressure Pulse Oximetry 94 93 96 11/19/20 08:50 11/19/20 09:07 11/19/20 14:00 Temperature 97.3 F L Pulse Rate 63 75 Respiratory Rate 16 Blood Pressure 153/51 H Pulse Oximetry 96 96 Intake/Output Intake/Output: Intake & Output 11/16/20 11/17/20 11/18/20 11/19/20 23:59 23:59 23:59 23:59 Intake Total 3002 277 4728 1530 Output Total 6400 4750 2600 850 [facility]4800 -3790 -1030 680 Meds/Results Medications: Active Medications Generic Name Dose Route Start Last Admin Trade Name Freq PRN Reason Stop Dose Admin Acetaminophen 650 mg 11/15/20 15:34 11/15/20 17:31 Acetaminophen 325 Mg Tablet PO 650 mg Q6H PRN Administration Mild Pain (1-3) or Fever Albuterol 2 puff 11/09/20 14:24 Albuterol Sulfate (*Sp) Aerosol 1 Puff INHALATION Q6HRT PRN Shortness Of Breath Aspirin 81 mg 11/10/20 08:00 11/19/20 08:49 Aspirin 81 Mg Chewable Tablet PO 81 mg DAILY@0800 RADHA Administration Atorvastatin Calcium 20 mg 11/10/20 09:00 11/19/20 08:50 Atorva
[2020-11-19] MEDS: INSULIN GLARGINE (*BKC) 100 UNITS/ML 10 UNITS SUB-Q (20:18)
[2020-11-19 22:44] LABS: Glucose Point of Care 178 (65-105)
[2020-11-20] VITALS (7 sets, daily range): BP systolic 153–184; BP diastolic 52–58; PULSE 67–75; RESP 14–18; TEMP 36.3–37.2; O2SAT 93–98
[2020-11-20] MEDS: LEVOTHYROXINE SODIUM 100 MCG TABLET PO (06:10)
[2020-11-20] MEDS: LEVOTHYROXINE SODIUM 75 MCG TABLET PO (06:10)
[2020-11-20 06:18] LABS: Basophils Percent Auto 0.3 % (0.2-1.2); Eosinophils Absolute Auto 0.1 K/mm3 (0-0.3); Eosinophils Percent Auto 1.3 % (0-4.4); Hemoglobin 11.8 g/dL (14.0-18.0); Immature Granulocyte Absolute 0.02 K/mm3 (0.00-0.031); Immature Granulocyte Percent A 0.3 % (0-0.5); Immature Platelet Fraction Pct 13.6 % (0.9-11.2); Lymphocytes Absolute Auto 1.29 K/mm3 (0.9-3.2); Lymphocytes Percent Auto 21.4 % (18.3-44.2); Mean Corpuscular HGB Conc 31.1 g/dl (32-36); Mean Corpuscular Hemoglobin 33.1 pg (26-34); Mean Corpuscular Volume 106.4 fl (80-100); Mean Platelet Volume 12.9 fl (7.4-10.4); Monocytes Absolute Auto 0.6 K/mm3 (0.1-0.6); Monocytes Percent Auto 10.1 % (2.6-8.5); Neutrophils Percent Auto 66.6 % (45.5-73.1); Platelet Count Result 89 k/mm3 (150-375); Red Blood Count 3.57 M/mm3 (4.6-6.20); Red Cell Distribution Width 14.3 % (11.5-14.5)
[2020-11-20 06:43] LABS: Alanine Aminotransferase 40 U/L (4-50); Albumin Level 3.8 g/dL (3.5-5.1); Alkaline Phosphatase 164 U/L (38-126); Anion Gap 3 mmol/L (8-16); Aspartate Amino Transferase 54 U/L (17-59); Bilirubin,Total 0.7 mg/dL (0.2-1.3); Blood Urea Nitrogen 33 mg/dL (9-20); Calcium 8.9 mg/dL (8.4-10.2); Carbon Dioxide 35 mmol/L (22-30); Chloride 101 mmol/L (98-107); Estimated CRCL calculation 85 ml/min; Estimated Glomerular Filt Rate > 60; Glucose 99 mg/dL (75-110); Magnesium 1.9 mg/dL (1.6-2.3); Potassium 4.2 mmol/L (3.4-5.0); Sodium 139 mmol/L (137-145)
[2020-11-20 07:46] LABS: Glucose Point of Care 96 (65-105)
[2020-11-20] MEDS: metFORMIN HCL XR 500 MG TAB.SR.24H 1000 MG PO ×2 (08:24→16:29)
[2020-11-20] MEDS: FINASTERIDE 5 MG TABLET PO (08:24)
[2020-11-20] MEDS: ASPIRIN 81 MG CHEWABLE TABLET PO (08:24)
[2020-11-20] MEDS: ATORVASTATIN 20 MG TABLET PO (08:25)
[2020-11-20] MEDS: LOSARTAN POTASSIUM 100 MG TABLET PO (08:25)
[2020-11-20] MEDS: TAMSULOSIN HCL 0.4 MG CAPSULE PO (08:25)
[2020-11-20] MEDS: BUMETANIDE 1 MG TABLET PO ×3 (08:25→16:29)
[2020-11-20] MEDS: carvediloL 3.125 MG TABLET PO ×2 (08:25→20:49)
[2020-11-20 12:01] LABS: Glucose Point of Care 121 (65-105)
[2020-11-20] MEDS: HEPARIN SODIUM 5,000 UNITS/ML VIAL 5000 UNITS SUB-Q ×2 (14:53→21:05)
--- NOTE | 2020-11-20 16:01 | PM.PNCARD ---
Progress Note: A&P Assessment and Plan (1) CHF (congestive heart failure): Qualifiers: Heart failure chronicity: unspecified Heart failure type: unspecified Qualified Code(s): I50.9 - Heart failure, unspecified Code(s): I50.9 - Heart failure, unspecified Status: Acute Assessment and Plan: Predominantly right-sided heart failure and diastolic heart failure secondary to underlying untreated severe sleep apnea, obesity hypoventilation and body habitus and HTN. Impressive response <-29L thus far but slowing predominantly with IV Lasix and more recently IV Acetazolamide (due to contraction alkalosis). However, pt remains volume overloaded. Continue Bumex 1mg BID, monitor renal function, electrolytes, alkalosis. monitor BMP, monitor electrolytes. give additional 1 mg p.o. Bumex this afternoon. (2) Elevated troponin: Code(s): R77.8 - Other specified abnormalities of plasma proteins Status: Acute Assessment and Plan: Non [place] troponin elevation.This is not related to acute plaque rupture. Most likely secondary to heart failure and renal failure. Continue to check cardiac enzymes until peak. (3) Acute respiratory failure with hypoxia: Code(s): J96.01 - Acute respiratory failure with hypoxia Status: Acute Assessment and Plan: Trilogy unit at bedside. Must remain compliant to reduce risk for decompensated heart failure, declining quality of life at a minimum. Patient verbalized understanding. Son at bedside also concurs. Patient with obesity hypoventilation syndrome (4) Hypertension associated with diabetes: Code(s): E11.59 - Type 2 diabetes mellitus with other circulatory complications; I15.2 - Hypertension secondary to endocrine disorders Status: Acute Assessment and Plan: Elevated. Increase Losartan to 50mg daily. Renal function stable, no BMP today as yet, I ordered. Monitor closely. Up titrate as tolerated. (5) Hyperlipidemia associated with type 2 diabetes mellitus: Code(s): E11.69 - Type 2 diabetes mellitus with other specified complication; E78.5 - Hyperlipidemia, unspecified Status: Acute Assessment and Plan: Continue statin therapy. Patient has a history of carotid endarterectomy and should be on a statin regardless. Continue Atorvastatin 20 mg daily (6) Morbid obesity with BMI of 50.0-59.9, adult: Code(s): E66.01 - Morbid (severe) obesity due to excess calories; Z68.43 - Body mass index [BMI] 50.0-59.9, adult Status: Acute Assessment and Plan: Lifestyle modification counseling. Additional Plan 70-year-old man with: Profound volume overload related to obesity hypoventilation, sleep apnea and secondary pulmonary hypertension. It is remarkable that we are diuresing him aggressively MICHAEL today is another 4 L negative and metabolic profile shows renal function is actually slightly better. Will continue this as long as he is benefitting from it. Once we start to see a state of worsening prerenal azotemia we will need to back off. Brian Sotelo MD [facility] Subjective Date/time seen: Date of service: 11/20/20 16:01 Interval history: Follow-up visit in this 70-year-old man with: Profound volume overload, this is the result of morbid obesity/hypoventilation sleep apnea syndrome and cor pulmonale. Feels About the same. No new issues. po Bumex resumed. Scrotal edema remains. no CP or significant GARCIA. Denies shortness of breath, lying flat bed. No new issues overnight. Very good urine output but definitely slowing with an impressive nearly -31 L to date. Review of Systems Review of Systems: All systems reviewed & are unremarkable except as noted in HPI and below Constitutional: Constitutional: Reports as per HPI, Reports no additional constitutional complaints, Denies body ache(s), Reports fatigue, Denies headache(s) and Reports weakness Eyes: Eyes: Reports as per HPI, Reports
[2020-11-20 16:36] LABS: Glucose Point of Care 134 (65-105)
--- NOTE | 2020-11-20 18:03 | PM.IMPN ---
Progress Note: A&P Assessment and Plan (1) Acute on chronic diastolic (congestive) heart failure: Code(s): I50.33 - Acute on chronic diastolic (congestive) heart failure Status: Acute Assessment and Plan: Continue diuresis. Cardiology following recommendations appreciated. 1 L off yesterday and today with positive water balance Fluid restriction ordered Patient placed on Bumex 1 mg p.o. b.i.d. (2) JAMILA (acute kidney injury): Code(s): N17.9 - Acute kidney failure, unspecified Status: Acute Assessment and Plan: resolved (3) Chronic kidney disease, stage 3: Code(s): N18.30 - Chronic kidney disease, stage 3 unspecified Status: Chronic Assessment and Plan: Current at baseline (4) Scrotal edema: Code(s): N50.89 - Other specified disorders of the male genital organs Status: Acute Assessment and Plan: Improving (5) Fluid overload: Code(s): E87.70 - Fluid overload, unspecified Status: Acute Assessment and Plan: Improving (6) Diabetes: Code(s): E11.9 - Type 2 diabetes mellitus without complications Status: Chronic Assessment and Plan: Blood glucose not at goal S and sliding scale increase to medium dose will need Lantus 10 units q.h.s. anticipate increase to BID dosing dc glimepiride (7) Hypertension: Code(s): I10 - Essential (primary) hypertension Status: Chronic Assessment and Plan: cont current therapy Additional Plan Patient remains stable with improved renal function, he has lost over 29 L of fluid with diuresis placed on Bumex by cardiology, Continue Bumex 1mg BID, monitor renal function, electrolytes, alkalosis. fluid restriction ordered, Blood pressure not at goal p.r.n. losartan 50 mg p.o. q.day -> 100mg PO QD. amlodipine added today 5 mg p.o. q.day blood glucose at goal Continue ongoing diuresis anticipate discharge home with home health care in 24-48 hours. Time Spent With Patient Time with patient: 25 - 35 minutes Subjective Date/time seen: 11/20/20 18:03 Review of Systems Review of Systems: All systems reviewed & are unremarkable except as noted in HPI and below Exam Narrative: Exam Narrative: GEN: NAD, AAOx3, cooperative HEENT: NCAT, MMM, EOMI Neck: no JVD Heart: S1S2 RRR Lungs: CTA B/l Abd: soft, NT, ND, bowel sounds normoactive Ext: moves all, no cyanosis, no clubbing, 1+ edema Objective Data Vital Signs Vital Signs: Vital Signs - 24 hr 11/19/20 20:00 11/19/20 20:05 11/19/20 20:10 Temperature 97.4 F L Pulse Rate 75 Respiratory Rate 16 Blood Pressure 164/50 H Pulse Oximetry 96 96 96 11/19/20 20:17 11/19/20 22:10 11/20/20 01:40 Temperature Pulse Rate 74 72 67 Respiratory Rate 16 15 Blood Pressure Pulse Oximetry 95 93 11/20/20 06:07 11/20/20 08:25 11/20/20 14:53 Temperature 97.4 F L 98.9 F Pulse Rate 69 69 74 Respiratory Rate 14 16 Blood Pressure 184/58 H 155/53 H Pulse Oximetry 98 98 96 11/20/20 15:38 Temperature Pulse Rate 75 Respiratory Rate 18 Blood Pressure Pulse Oximetry 96 Intake/Output Intake/Output: Intake & Output 11/17/20 11/18/20 11/19/20 11/20/20 23:59 23:59 23:59 23:59 Intake Total 960 1570 1530 680 Output Total 4750 2600 850 3075 Balance -3790 -1030 680 -2064 Meds/Results Medications: Active Medications Generic Name Dose Route Start Last Admin Trade Name Freq PRN Reason Stop Dose Admin Acetaminophen 650 mg 11/15/20 15:34 11/15/20 17:31 Acetaminophen 325 Mg Tablet PO 650 mg Q6H PRN Administration Mild Pain (1-3) or Fever Albuterol 2 puff 11/09/20 14:24 Albuterol Sulfate (*Sp) Aerosol 1 Puff INHALATION Q6HRT PRN Shortness Of Breath Aspirin 81 mg 11/10/20 08:00 11/20/20 08:24 Aspirin 81 Mg Chewable Tablet PO 81 mg DAILY@0800 RADHA Administration Atorvastatin Calcium 20 mg 11/10/20 09:00 11/20/20 08:25 Atorvast
[2020-11-20 20:49] LABS: Glucose Point of Care 170 (65-105)
[2020-11-20] MEDS: INSULIN GLARGINE (*BKC) 100 UNITS/ML 10 UNITS SUB-Q (20:50)
[2020-11-21 05:05] VITALS: BP 155/75; PULSE 72; RESP 17; TEMP 36.4; O2SAT 96
[2020-11-21] MEDS: LEVOTHYROXINE SODIUM 100 MCG TABLET PO (05:32)
[2020-11-21] MEDS: LEVOTHYROXINE SODIUM 75 MCG TABLET PO (05:32)
[2020-11-21] MEDS: HEPARIN SODIUM 5,000 UNITS/ML VIAL 5000 UNITS SUB-Q ×2 (05:33→14:53)
[2020-11-21 07:29] LABS: Glucose Point of Care 92 (65-105)
[2020-11-21 08:41] LABS: Anion Gap 4 mmol/L (8-16); Blood Urea Nitrogen 29 mg/dL (9-20); Calcium 9.2 mg/dL (8.4-10.2); Carbon Dioxide 37 mmol/L (22-30); Chloride 101 mmol/L (98-107); Estimated CRCL calculation 85 ml/min; Estimated Glomerular Filt Rate > 60; Glucose 105 mg/dL (75-110); Potassium 3.9 mmol/L (3.4-5.0); Sodium 142 mmol/L (137-145)
[2020-11-21] MEDS: LOSARTAN POTASSIUM 100 MG TABLET PO (08:43)
[2020-11-21] MEDS: TAMSULOSIN HCL 0.4 MG CAPSULE PO (08:43)
[2020-11-21 08:44] VITALS: PULSE 72
[2020-11-21] MEDS: ATORVASTATIN 20 MG TABLET PO (08:44)
[2020-11-21] MEDS: BUMETANIDE 1 MG TABLET PO ×2 (08:44→17:25)
[2020-11-21] MEDS: amLODIPine BESYLATE 5 MG TABLET PO (08:44)
[2020-11-21] MEDS: metFORMIN HCL XR 500 MG TAB.SR.24H 1000 MG PO ×2 (08:44→17:25)
[2020-11-21] MEDS: FINASTERIDE 5 MG TABLET PO (08:44)
[2020-11-21] MEDS: carvediloL 3.125 MG TABLET PO (08:44)
[2020-11-21] MEDS: ASPIRIN 81 MG CHEWABLE TABLET PO (08:44)
[2020-11-21 08:45] VITALS: O2SAT 92
--- NOTE | 2020-11-21 08:54 | PM.PNCARD ---
Progress Note: A&P Additional Plan 70-year-old man with : obesity hypoventilation Gonzalez syndrome with right heart failure as a result of this. He has dramatically improved with diuresis. Lower extremity and scrotal edema is now relatively modest and I believe he is stable enough to be discharged. He will follow up with his PCP, Dr. Bobo as well as Dr. Calvillo from our practice. Brian Sotelo MD [facility] Subjective Date/time seen: 11/21/20 08:54 Interval history: Follow-up visit in this 70-year-old man with: Profound volume overload, this is the result of morbid obesity/hypoventilation sleep apnea syndrome and cor pulmonale. Feels About the same. No new issues. po Bumex resumed. Scrotal edema remains. no CP or significant GARCIA. Denies shortness of breath, lying flat bed. No new issues overnight. Very good urine output but definitely slowing with an impressive nearly -31 L to date. 11/21/2020: Patient has no significant complaints this morning. Diuresed another 4-5 L in the last 24-48 hours. Ambulating in the halls without significant problems. Intention is for him to go home where he lives alone at the time of discharge Exam Narrative: Exam Narrative: Awake alert oriented. Pleasant and appears stated age Const: General: comfortable and no acute distress; No confusion Orientation/consciousness: No confusion Other: very pleasant, morbidly obese man supine in bed comfortable no apparent distress HENMT: General nose exam: Normal nares present Mouth: Yes moist mucous membranes Eyes: Sclera: sclerae normal Neck: Neck: supple Thyroid: thyroid normal Other: unable to assess JVD Chest: Other: No reproducible chest wall pain to palpation Resp: Auscultation: diminished lung sounds Other: Breath sounds are distant but essentially clear Cardio: Rate: regular rate Rhythm: regular rhythm Other: PMI is not palpable GI: Auscultation: normal bowel sounds : Other: Scrotal edema noted Skin: General skin exam: no erythema Other: Chronic stasis changes seen to lower extremities Neuro: General: No confusion Cranial nerves: Yes Normal hearing present Cognition (Neuro): normal cognition Speech: normal speech Extrem: General: edema bilateral (1-2+ LE) Other: 1+ bilateral lower extremity edema Psych: Affect: normal affect Objective Data Vital Signs Vital Signs: Vital Signs - 24 hr 11/20/20 14:53 11/20/20 15:38 11/20/20 20:42 Temperature 37.2 C 36.5 C Pulse Rate 74 75 74 Respiratory Rate 16 18 18 Blood Pressure 155/53 H 153/52 H Pulse Oximetry 96 96 97 11/20/20 20:49 11/21/20 05:05 11/21/20 08:44 Temperature 36.4 C Pulse Rate 72 72 72 Respiratory Rate 17 Blood Pressure 155/75 H Pulse Oximetry 96 Intake/Output Intake/Output: Intake & Output 11/18/20 11/19/20 11/20/20 11/21/20 23:59 23:59 23:59 23:59 Intake Total 1570 1530 920 Output Total 2600 850 5734 600 Balance -1030 490 -8766 -600 Meds/Results Medications: Active Medications Generic Name Dose Route Start Last Admin Trade Name Freq PRN Reason Stop Dose Admin Acetaminophen 650 mg 11/15/20 15:34 11/15/20 17:31 Acetaminophen 325 Mg Tablet PO 650 mg Q6H PRN Administration Mild Pain (1-3) or Fever Albuterol 2 puff 11/09/20 14:24 Albuterol Sulfate (*Sp) Aerosol 1 Puff INHALATION Q6HRT PRN Shortness Of Breath Amlodipine Besylate 5 mg 11/21/20 09:00 11/21/20 08:44 Amlodipine Besylate 5 Mg Tablet PO 5 mg QAM RADHA Administration Aspirin 81 mg 11/10/20 08:00 11/21/20 08:44 Aspirin 81 Mg Chewable Tablet PO 81 mg DAILY@0800 RADHA Administration Atorvastatin Calcium 20 mg 11/10/20 09:00 11/21/20 08:44 Atorvastatin 20 Mg Tablet PO 20 mg DAILY RADHA Administration Bumetanide 1 mg 11/19/20 09:00 11/21/20 08:44 Bumetanide 1 Mg Tablet PO 1 mg BID RADHA Administration Carvedilol 3.125 mg 11/10/20 21:00 11/21/20 08:44 Carvedilol 3.
[2020-11-21 09:12] VITALS: O2SAT 93
[2020-11-21 12:31] LABS: Glucose Point of Care 110 (65-105)
[2020-11-21 13:51] VITALS: BP 142/76; PULSE 76; RESP 16; TEMP 36.1; O2SAT 98
--- NOTE | 2020-11-21 14:04 | PCOTNOTE ---
Attempted to see patient for OT, patient sleeping. When therapist woke patient, patient declined. He stated, All I want to do is pee. Patient asked if he wanted to try and get up to the bathroom, patient declined. Patient declined all interventions, including exercises. Anticipate patient to discharge today or tomorrow. Will continue plan of care tomorrow if patient is not discharged.
--- NOTE | 2020-11-21 16:23 | PM.DS ---
DS: Admitting Diagnosis Admitting Diagnosis Admitting Diagnosis: Shortness of breath DS: Discharge Diagnosis Discharge Diagnosis (1) Acute on chronic diastolic (congestive) heart failure: Code(s): I50.33 - Acute on chronic diastolic (congestive) heart failure Status: Acute Assessment and Plan: Continue diuresis. Cardiology following recommendations appreciated. 1 L off yesterday and today with positive water balance Fluid restriction ordered Patient placed on Bumex 1 mg p.o. b.i.d. (2) JAMILA (acute kidney injury): Code(s): N17.9 - Acute kidney failure, unspecified Status: Acute Assessment and Plan: resolved (3) Chronic kidney disease, stage 3: Code(s): N18.30 - Chronic kidney disease, stage 3 unspecified Status: Chronic Assessment and Plan: Current at baseline (4) Scrotal edema: Code(s): N50.89 - Other specified disorders of the male genital organs Status: Acute Assessment and Plan: Improving (5) Fluid overload: Code(s): E87.70 - Fluid overload, unspecified Status: Acute Assessment and Plan: Improving (6) Diabetes: Code(s): E11.9 - Type 2 diabetes mellitus without complications Status: Chronic Assessment and Plan: Blood glucose not at goal S and sliding scale increase to medium dose will need Lantus 10 units q.h.s. anticipate increase to BID dosing dc glimepiride (7) Hypertension: Code(s): I10 - Essential (primary) hypertension Status: Chronic Assessment and Plan: cont current therapy DS: Summary Hospital Course Reason for hospitalization: this is a 70 year old male patient who has a history of hypertension diabetes and hypothyroidism. The patient stated that he has had increase swelling to his lower extremities and his scrotum over the last 7 days. The patient has not had any previous history of congestive heart failure. The patient states that his blood sugars have been in the 100 since last A1c was 6.1. The patient reports that he has been retaining fluid. He has had a cough but has been nonproductive. No fever chills. The patient short of breath with exertion over the last 7 days. The patient went to his primary care doctor's office because of all the swelling. His primary care doctor referred him to the emergency room. Patient's blood pressure was 168/67. Patient's H&H is 12.5 and 40.9. Arterial blood gases pH 7.297. CO2 was 47.6. PO2 is 55.4. The patient was placed on a BiPAP 12/6 with a rate of 16. Chest x-ray was read as patchy bibasilar airspace disease most likely pneumonia. Small right pleural effusion. Cardiomegaly. No leukocytosis was noted. No fever chills. 0.141 BNP 5030. The patient was started on a Zithromax and Rocephin for the possibility of pneumonia. I personally reviewed the chest x-ray which looks more like pulmonary edema. The patient was given IV Lasix in the emergency room. Admitted to inpatient services on 11/09/2020 Hospital Course: Morbidly obese patient presented with a shortness of breath and was found to congestive heart failure with grade 2 diastolic dysfunction most likely patient had acute on chronic diastolic dysfunction patient was diuresed to seen by Cardiology, similarly with hypoxia and shortness of breath with morbid obesity patient has sleep apnea and hypoventilation patient was seen by locomotive firer and BiPAP was adjusted and arrange for home, today patient clinically stable is able to ambulate with some help will go ahead and discharge the patient today. Status at Discharge Functional status at discharge: uses cane/walker Overall status at discharge: patient is back to baseline Time Spent with Patient Time attestation: Total time spent providing and/or coordinating discharge services: Patient was seen and examined at the time of the discharge Condition at discharge is stable Code status: Full code. Time spent preparing discharge sum
[2020-11-21 17:29] LABS: Glucose Point of Care 117 (65-105)
== END 2020-11-21 18:30 | disposition home health service (06) | DRG 291 ==
LOC: ANHED 12:03 → ANHIMU 13:40 → ANH3MED 11-13 15:50
PROVIDERS: Family Medicine; Internal Medicine; Internal Medicine Cardiovascular Disease; Internal Medicine Nephrology; Internal Medicine Pulmonary Disease; Nurse Practitioner; Admitting Provider Family Medicine; Emergency Provider Emergency Medicine; PCP Family Medicine Adolescent Medicine; Visit Provider Hospitalist
DX: I13.0 Hypertensive heart and chronic kidney disease with heart failure and stage 1 through stage 4 chronic kidney disease, or unspecified chronic kidney disease (principal); J96.01 Acute respiratory failure with hypoxia; J96.22 Acute and chronic respiratory failure with hypercapnia; I50.33 Acute on chronic diastolic (congestive) heart failure; N17.9 Acute kidney failure, unspecified; Z68.43 Body mass index [BMI] 50.0-59.9, adult; E66.2 Morbid (severe) obesity with alveolar hypoventilation; I27.20 Pulmonary hypertension, unspecified; I27.81 Cor pulmonale (chronic); Z20.822 Contact with and (suspected) exposure to COVID-19; N40.1 Benign prostatic hyperplasia with lower urinary tract symptoms; R33.8 Other retention of urine; N50.89 Other specified disorders of the male genital organs; E11.22 Type 2 diabetes mellitus with diabetic chronic kidney disease; N18.30 Chronic kidney disease, stage 3 unspecified; E11.59 Type 2 diabetes mellitus with other circulatory complications; I15.2 Hypertension secondary to endocrine disorders; E11.69 Type 2 diabetes mellitus with other specified complication; E78.5 Hyperlipidemia, unspecified; E11.40 Type 2 diabetes mellitus with diabetic neuropathy, unspecified; E03.9 Hypothyroidism, unspecified; R77.8 Other specified abnormalities of plasma proteins; D64.9 Anemia, unspecified; Z79.84 Long term (current) use of oral hypoglycemic drugs; Z79.899 Other long term (current) drug therapy; Z86.73 Personal history of transient ischemic attack (TIA), and cerebral infarction without residual deficits; Z98.42 Cataract extraction status, left eye; Z98.41 Cataract extraction status, right eye
CPT/HCPCS: 36415; 36600; 71046; 76775; 78582; 80048; 80053; 80061; 80069; 80076; 81001; 81050; 82436; 82570; 82805; 82948; 83036; 83735; 83874; 83880; 83883; 84155; 84156; 84165; 84166; 84300; 84439; 84443; 84484; 85025; 85027; 85055; 85380; 85610; 85730; 85999; 86160; 86225; 87040; 93005; 93306; 93970; 94003; 94762; 97110; 97116; 97162; 97165; 97530; 97535; 99291; A9270; A9540; A9558; C8929; C9803; J0456; J0696; J1120; J1610; J1644; J1650; J1815; J1940; Q9957; U0003; U0005